=== PATIENT | male | born 1940 | race Caucasian/White ===

== ENCOUNTER → 2018-07-18 | Outpatient (CLI) | payer MEDICARE, BC ==
--- NOTE | 2018-07-18 12:50 | XR ---
EXAMINATION TYPE: XR thoracic spine complete DATE OF EXAM: 07/18/2018 CLINICAL HISTORY: pain TECHNIQUE: Frontal, lateral, and swimmer's view of thoracic spine are obtained. COMPARISON: None. FINDINGS: Thoracic spine show satisfactory alignment without evidence of acute fracture or dislocatio n. Vertebral body heights are preserved. Moderate to severe multilevel degenerative disc space narro wing and spondylosis. Visualized ribs are unremarkable. IMPRESSION: No acute fracture or dislocation is seen in the thoracic spine. ICD 10 NO FRACTURE, INITIAL EVALUATION
--- NOTE | 2018-07-18 16:06 | XR ---
EXAMINATION TYPE: XR lumbar spine 2 or 3V DATE OF EXAM: 07/18/2018 CLINICAL HISTORY: pain TECHNIQUE: Three views of the lumbar spine are submitted. COMPARISON: None. FINDINGS: There are 5 lumbar type vertebral bodies identified. The lumbar spine shows satisfactory alignment w ithout evidence of acute fracture or dislocation. Vertebral body heights are within normal limits. Moderate degenerative disc space narrowing and spondylosis. Facet joint arthropathy. The overlying s oft tissue appears unremarkable. IMPRESSION: No acute fracture or dislocation is seen in the lumbar spine. ICD 10 NO FRACTURE, INITIAL EVALUATION
== END | disposition home or self-care (01) ==
LOC: RADXRMAIN 12:09
PROVIDERS: ATTEND Family Medicine
DX: M54.5 Low back pain (principal); M54.6 Pain in thoracic spine
CPT/HCPCS: 72072; 72100

== ENCOUNTER 2018-09-25 11:51 | Inpatient (IN) | payer MEDICARE, BC ==
[2018-09-25] MEDS ORDERED: SODIUM CHLORIDE 0.9% 500 ML 500 ML IV STA (12:12)
[2018-09-25] MEDS ORDERED: PANTOPRAZOLE 40 MG/10 ML VIAL IVP STA (12:12)
--- NOTE | 2018-09-25 12:16 | ED ---
General Adult HPI - General Chief complaint: Abdominal Pain Stated complaint: abd pain Time Seen by Provider: 09/25/18 11:55 Source: patient, RN notes reviewed Mode of arrival: ambulatory Limitations: no limitations - History of Present Illness Initial comments: This is a 78-year-old male who is an alcoholic. Patient states he hasn't had a drink since yesterday morning. Patient states he had 3 day episode of diarrhea and then on Sunday he started vomiting for 2 days. Patient states and Saturdays also had some mid abdominal pain. Patient was told to come in by his primary medical care doctor when his caregiver called him. Patient states currently is not having any abdominal pain. Patient currently has got no complaints. Patient denies any chest pain difficulty breathing or shortness of breath per patient denies any recent fever chills or cough. Patient denies being nauseated currently and patient states he hasn't had any diarrhea for at least 3 days. Patient states he has not drank any alcohol today. Patient denies any lightheadedness or dizziness. - Related Data Home Medications Medication Instructions Recorded Confirmed DULoxetine HCL [Cymbalta] 60 mg PO BID 07/16/14 09/25/18 Atorvastatin [Lipitor] 10 mg PO W/SUPPER 05/15/16 09/25/18 Folic Acid 1 mg PO DAILY 05/15/16 09/25/18 Imipramine [Tofranil] 10 mg PO TID 05/15/16 09/25/18 Repaglinide [Prandin] 0.5 mg PO DAILY 05/15/16 09/25/18 Aspirin [Adult Low Dose Aspirin EC] 81 mg PO DAILY 09/25/18 09/25/18 Bismuth Subsalicylate 262 mg PO Q1H PRN 09/25/18 09/25/18 [Pepto-Bismol] Calcium Carbonate [Tums] 500 mg PO DAILY 09/25/18 09/25/18 Cholecalciferol [Vitamin D3] 2,000 unit PO ONCE 09/25/18 09/25/18 Insulin Glargine,Hum.rec.anlog 10 units SQ DAILY 09/25/18 09/25/18 [Tolauryn Rodriguesostpaty] Melatonin 10 mg PO HS 09/25/18 09/25/18 Metoprolol Tartrate 25 mg PO BID 09/25/18 09/25/18 Pantoprazole Sodium 40 mg PO DAILY 09/25/18 09/25/18 Potassium Chloride [Klor-Con 10] 10 meq PO BID 09/25/18 09/25/18 Thiamine [Vitamin B-1] 100 mg PO DAILY 09/25/18 09/25/18 Zolpidem Tartrate [Ambien] 5 - 10 mg PO HS PRN 09/25/18 09/25/18 amLODIPine [Norvasc] 2.5 mg PO BID 09/25/18 09/25/18 buPROPion HCL [Wellbutrin XL] 150 mg PO DAILY 09/25/18 09/25/18 Allergies Allergy/AdvReac Type Severity Reaction Status Date / Time zolpidem tartrate AdvReac Hallucinati Verified 09/25/18 13:10 [From Ambien] ons Review of Systems ROS Statement: Those systems with pertinent positive or pertinent negative responses have been documented in the HPI. ROS Other: All systems not noted in ROS Statement are negative. Past Medical History Past Medical History: Diabetes Mellitus, Hypertension Additional Past Medical History / Comment(s): Prostate cancer. History of Any Multi-Drug Resistant Organisms: None Reported Past Surgical History: Cholecystectomy, Orthopedic Surgery, Prostate Surgery Additional Past Surgical History / Comment(s): knee left, right leg, back. prostate removed. Past Anesthesia/Blood Transfusion Reactions: No Reported Reaction Past Psychological History: No Psychological Hx Reported Smoking Status: Light tobacco smoker Past Alcohol Use History: Daily, None Reported Past Drug Use History: None Reported - Past Family History Father Additional Family Medical History / Comment(s): ulcers Mother History Unknown: Yes Brother(s) Family Medical History: Cancer Additional Family Medical History / Comment(s): patient unsure what type of cancer General Exam - General Exam Comments Initial Comments: GENERAL: Patient is well-developed and well-nourished. Patient is nontoxic and well- hydrated and is in no acute distress. ENT: Neck is soft and supple. No significant lymphadenopathy is noted. Oropharynx is clear. Moist mucous membranes. EYES: The sclera were anicteric and conjunctiva were pink and moist. Extraocular movements were intact and pupils were equal round and reactive to light. Eyelids were unremarkable. PULMONARY: Unlabored respirations. Good breath sounds bilaterally. No audible rales rhonchi or wheezing was noted. CARDIOVASCULAR: There is a regular rate and rhythm without any murmurs gallops or rubs. ABDOMEN: Soft and nontender with normal bowel sounds. No palpable organomegaly was noted. There is no palpable pulsatile mass. SKIN: Skin is clear with no lesions or rashes and otherwise unremarkable. NEUROLOGIC: Patient is alert and oriented x3. Cranial nerves II through XII are grossly intact. Motor and sensory are also intact. Normal speech, volume and content. Symmetrical smile. MUSCULOSKELETAL: Normal extremities with adequate strength and full range of motion. No lower extremity swelling or edema. No calf tenderness. LYMPHATICS: No significant lymphadenopathy is noted PSYCHIATRIC: Normal psychiatric evaluation. Limitations: no limitations Course Vital Signs 09/25/18 09/25/18 09/25/18 11:56 12:09 12:10 Temperature 97.6 F Pulse Rate 54 L Respiratory 20 Rate Blood Pressure 98/56 121/84 121/84 O2 Sat by Pulse 93 L 96 95 Oximetry 09/25/18 09/25/18 09/25/18 12:20 12:30 12:40 Temperature Pulse Rate 80 96 Respiratory 20 20 Rate Blood Pressure 121/84 121/84 114/82 O2 Sat by Pulse 96 94 L Oximetry 09/25/18 09/25/18 09/25/18 12:50 13:00 13:10 Temperature Pulse Rate 76 Respiratory 7 L Rate Blood Pressure 114/82 114/82 127/80 O2 Sat by Pulse 92 L 93 L Oximetry Medical Decision Making - Medical Decision Making EKG shows normal sinus rhythm at 81 bpm MA interval 164 QRS is 82 QT interval 382 QTC is 443. Patient's EKG shows some T-wave inversions in leads II, III, and F aVF. These T-wave inversions are seen on a previous EKG. KUB shows no acute abnormality. Computed tomography scan of the abdomen and pelvis shows debris in the stomach and some constipation. No acute findings to explain the patient's pain. I spoke with Dr. Garcia and he agreed to admit the patient admitted the patient wrote admitting orders - Lab Data Result diagrams: 09/25/18 12:31 09/25/18 12:31 Lab Results 09/25/18 09/25/18 09/25/18 Range/Units 12:31 12:31 12:31 WBC 16.3 H (3.8-10.6) k/uL RBC 3.87 L (4.30-5.90) m/uL Hgb 13.7 (13.0-17.5) gm/dL Hct 38.3 L (39.0-53.0) % MCV 99.2 (80.0-100.0) fL MCH 35.3 H (25.0-35.0) pg MCHC 35.6 (31.0-37.0) g/dL RDW 12.4 (11.5-15.5) % Plt Count 280 (150-450) k/uL Neutrophils % 82 % Lymphocytes % 10 % Monocytes % 7 % Eosinophils % 0 % Basophils % 0 % Neutrophils # 13.3 H (1.3-7.7) k/uL Lymphocytes # 1.6 (1.0-4.8) k/uL Monocytes # 1.1 H (0-1.0) k/uL Eosinophils # 0.0 (0-0.7) k/uL Basophils # 0.0 (0-0.2) k/uL PT (9.0-12.0) sec INR (<1.2) APTT (22.0-30.0) sec Sodium 133 L (137-145) mmol/L Potassium 4.0 (3.5-5.1) mmol/L Chloride 95 L (98-107) mmol/L Carbon Dioxide 25 (22-30) mmol/L Anion Gap 13 mmol/L BUN 43 H (9-20) mg/dL Creatinine 1.67 H (0.66-1.25) mg/dL Est GFR (CKD-EPI)AfAm 45 (>60 ml/min/1.73 sqM) Est GFR (CKD-EPI)NonAf 39 (>60 ml/min/1.73 sqM) Glucose 187 H (74-99) mg/dL Plasma Lactic Acid Gene 2.7 H* (0.7-2.0) mmol/L Calcium 12.1 H (8.4-10.2) mg/dL Total Bilirubin 0.7 (0.2-1.3) mg/dL AST 22 (17-59) U/L ALT 27 (21-72) U/L Alkaline Phosphatase 57 (38-126) U/L Total Protein 6.6 (6.3-8.2) g/dL Albumin 3.8 (3.5-5.0) g/dL Amylase <30 L (30-110) U/L Lipase 66 (23-300) U/L Urine Color Urine Appearance (Clear) Urine pH (5.0-8.0) Ur Specific [place] (1.001-1.035) Urine Protein (Negative) Urine Glucose (UA) (Negative) Urine Ketones (Negative) Urine Blood (Negative) Urine Nitrite (Negative) Urine Bilirubin (Negative) Urine Urobilinogen (<2.0) mg/dL Ur Leukocyte Esterase (Negative) Serum Alcohol <10 mg/dL 09/25/18 09/25/18 Range/Units 12:31 13:05 WBC (3.8-10.6) k/uL RBC (4.30-5.90) m/uL Hgb (13.0-17.5) gm/dL Hct (39.0-53.0) % MCV (80.0-100.0) fL MCH (25.0-35.0) pg MCHC (31.0-37.0) g/dL RDW (11.5-15.5) % Plt Count (150-450) k/uL Neutrophils % % Lymphocytes % % Monocytes % % Eosinophils % % Basophils % % Neutrophils # (1.3-7.7) k/uL Lymphocytes # (1.0-4.8) k/uL Monocytes # (0-1.0) k/uL Eosinophils # (0-0.7) k/uL Basophils # (0-0.2) k/uL PT 10.0 (9.0-12.0) sec INR 1.0 (<1.2) APTT 21.7 L (22.0-30.0) sec Sodium (137-145) mmol/L Potassium (3.5-5.1) mmol/L Chloride (98-107) mmol/L Carbon Dioxide (22-30) mmol/L Anion Gap mmol/L BUN (9-20) mg/dL Creatinine (0.66-1.25) mg/dL Est GFR (CKD-EPI)AfAm (>60 ml/min/1.73 sqM) Est GFR (CKD-EPI)NonAf (>60 ml/min/1.73 sqM) Glucose (74-99) mg/dL Plasma Lactic Acid Gene (0.7-2.0) mmol/L Calcium (8.4-10.2) mg/dL Total Bilirubin (0.2-1.3) mg/dL AST (17-59) U/L ALT (21-72) U/L Alkaline Phosphatase (38-126) U/L Total Protein (6.3-8.2) g/dL Albumin (3.5-5.0) g/dL Amylase (30-110) U/L Lipase (23-300) U/L Urine Color Yellow Urine Appearance Clear (Clear) Urine pH 6.0 (5.0-8.0) Ur Specific [place] 1.016 (1.001-1.035) Urine Protein Negative (Negative) Urine Glucose (UA) Trace H (Negative) Urine Ketones Trace H (Negative) Urine Blood Negative (Negative) Urine Nitrite Negative (Negative) Urine Bilirubin Negative (Negative) Urine Urobilinogen <2.0 (<2.0) mg/dL Ur Leukocyte Esterase Negative (Negative) Serum Alcohol mg/dL Disposition Clinical Impression: Abdominal pain, Alcohol abuse Disposition: ADMITTED IP TO THIS [facility] Referrals: Chemo Garcia DO [Primary Care Provider] - 1-2 days Time of Disposition: 15:12
[2018-09-25 12:55] LABS: Basophils % (A) 0 %; Eosinophils % (A) 0 %; HCT 38.3 % (39.0-53.0); HGB 13.7 gm/dL (13.0-17.5); Lymphocytes # (A) 1.6 k/uL (1.0-4.8); Lymphocytes % (A) 10 %; MCH 35.3 pg (25.0-35.0); MCHC 35.6 g/dL (31.0-37.0); MCV 99.2 fL (80.0-100.0); Mean Platelet Volume 6.6; Monocytes # (A) 1.1 k/uL (0-1.0); Monocytes % (A) 7 %; Neutrophils # (A) 13.3 k/uL (1.3-7.7); Neutrophils % (A) 82 %; Platelet Count 280 k/uL (150-450); RBC 3.87 m/uL (4.30-5.90); RDW 12.4 % (11.5-15.5); WBC 16.3 k/uL (3.8-10.6)
[2018-09-25 13:06] LABS: ALT 27 U/L (21-72); AST 22 U/L (17-59); Albumin 3.8 g/dL (3.5-5.0); Alcohol <10 mg/dL; Alkaline Phosphatase 57 U/L (38-126); Amylase <30 U/L (30-110); Anion Gap 13 mmol/L; Blood Urea Nitrogen 43 mg/dL (9-20); Calcium 12.1 mg/dL (8.4-10.2); Carbon Dioxide 25 mmol/L (22-30); Chloride 95 mmol/L (98-107); Glucose 187 mg/dL (74-99); Lipase 66 U/L (23-300); Sodium 133 mmol/L (137-145); Total Bilirubin 0.7 mg/dL (0.2-1.3); Total Protein 6.6 g/dL (6.3-8.2)
[2018-09-25 13:18] LABS: Appearance,Urine Clear (Clear); Bilirubin,Urine Negative (Negative); Blood,Urine Negative (Negative); Color,Urine Yellow; Glucose,Urine (UA) Trace (Negative); Ketones,Urine Trace (Negative); Leukocyte Esterase,Urine Negative (Negative); Nitrite,Urine Negative (Negative); Protein,Urine Negative (Negative); Specific Gravity,Urine 1.016 (1.001-1.035); Urobilinogen,Urine <2.0 mg/dL (<2.0)
--- NOTE | 2018-09-25 13:21 | XR ---
EXAMINATION TYPE: XR KUB DATE OF EXAM: 09/25/2018 COMPARISON: 07/15/2014 HISTORY: Pain TECHNIQUE: Single supine KUB image of the abdomen is obtained FINDINGS: Small bowel demonstrates no evidence for dilatation or air fluid levels. Gas and fecal material is seen in non-distended colon. Mild to moderate fecal stasis. Prostatectomy changes. No convincing evidence for pneumoperitoneum. No unusual calcifications. The lung bases are clear. The osseous structures are intact. IMPRESSION: 1. Overall nonobstructive bowel gas pattern.
[2018-09-25 13:25] LABS: Partial Thromboplastin Time 21.7 sec (22.0-30.0)
[2018-09-25] MEDS ORDERED: SODIUM CHLORIDE 0.9% 1,000 ML IV ONE ×2 (14:26→15:13)
--- NOTE | 2018-09-25 14:52 | CT ---
EXAMINATION TYPE: CT abdomen pelvis wo con DATE OF EXAM: 09/25/2018 COMPARISON: 07/02/2015 HISTORY: 78-year-old male with pain, Nausea, vomiting, diarrhea CT DLP: 579 mGycm. Automated exposure control for dose reduction was used. TECHNIQUE: Contiguous axial scanning of the abdomen and pelvis without IV contrast. Coronal and sagit stuart reconstructions performed. FINDINGS: Enlarged right main pulmonary artery at 2.8 cm suggest underlying pulmonary hypertension. Calcified m ediastinal lymph nodes and right hilar lymph nodes compatible with prior granulomatous disease. Calci fied granulomas on the right. Strandy atelectasis and scarring in the visualized lungs. Ectatic ascen ding aorta 3.8 cm. Extensive coronary vessel calcifications. Heart borderline enlarged. Noncontrast appearance of the liver, adrenal glands, left kidney, and pancreas shows no gross abnorma lity. Multiple calcified granulomas in the spleen. A 1.1 cm hypodense cortical lesion lower pole right kidney suggestive of a cyst, slightly larger from 2015. There is focal rounded contour along the anterior upper pole of the right kidney that could represent a prominent contour lobulation. This appears slightly different from 2015. Short interval follow-up recommended. Refer to axial image 34. Retroaortic left renal vein. Prominent ingested debris distending the stomach. No dilated small bowel, free fluid, or free air. No mesenteric or retroperitoneal lymphadenopathy. Some retained oral contrast material is seen throughout the colon. Normal appendix. The far lateral l eft flank is excluded from view including portions of the descending colon. Seov-ga-pyckebac stool in the distal sigmoid and rectum. Myles catheter is present decompressing the bladder. Nondependent intraluminal bladder air likely sec ondary to instrumentation. Surgical clips in the region of the prostate gland and multiple surgical c lips along the iliac chains suggesting prior lymph node dissection with prostatectomy. No abnormal fl uid collection or lymphadenopathy in the pelvis. Bones: Degenerative changes of the hips and scattered degenerative disc disease. Inferior endplate de formity of T11 is new from 2015 but still suspect chronic given the lack of any surrounding soft tiss ue swelling. IMPRESSION: 1. Prominent ingested debris distending the stomach. 2. Mild to moderate stool within the distal sigmoid and rectum. Retained oral contrast material seen throughout the colon. Query any recent radiologic exam where oral contrast was administered. 3. Status post prostatectomy and pelvic lymph node dissection. 4. Myles catheter in place. 5. Inferior endplate deformity of T11 is new from 2015 but still suspect chronic given the lack of a ny surrounding soft tissue swelling. 6. Focal rounded contour along the upper pole of the right kidney. Limited assessment without contra st. Recommend three-month follow-up CT with contrast to exclude an underlying mass.
[2018-09-25 17:41] LABS: Glucose,Whole Blood 112 mg/dL (75-99)
[2018-09-25] MEDS ORDERED: BISMUTH SUBSALICYLATE 4,192 MG/240 ML BOTTLE PO PRN (18:36)
[2018-09-25] MEDS ORDERED: THIAMINE 100 MG/ML 2 ML VIAL IM STA (18:39)
[2018-09-25] MEDS: LORazepam 2 MG/ML INJ IV PRN ×2 (19:32→21:26)
[2018-09-25] MEDS: ACETAMINOPHEN TAB 325 MG TAB PO PRN (19:32)
[2018-09-25] MEDS: NICOTINE 21MG/24HR PATCH TRANSDERM SCH (19:32)
[2018-09-25] MEDS: amLODIPine 2.5 MG TAB PO SCH (19:57)
[2018-09-25 23:53] LABS: Glucose,Whole Blood 70 mg/dL (75-99)
[2018-09-26] MEDS: LORazepam 2 MG/ML INJ IV PRN ×6 (00:06→23:04)
[2018-09-26] MEDS: INSULIN ASPART 100 UNIT/ML 1 ML 10 ML VIAL SQ SCH ×5 (00:45→20:51)
[2018-09-26 04:38] LABS: Hemoglobin A1C 5.4 % (4.0-6.0)
[2018-09-26 06:38] LABS: Glucose,Whole Blood 85 mg/dL (75-99)
[2018-09-26] MEDS ORDERED: IPRATROPIUM-ALBUTEROL 3 ML NEB INHALATION STA (08:01)
[2018-09-26] MEDS ORDERED: methylPREDNISolone SOD SUCCI 125 MG/2 ML VIAL IV STA (08:02)
[2018-09-26] MEDS ORDERED: PANTOPRAZOLE 40 MG TABLET PO SCH (09:00)
--- NOTE | 2018-09-26 09:15 | XR ---
EXAMINATION TYPE: XR chest 2V DATE OF EXAM: 09/26/2018 COMPARISON: 05/15/2016 HISTORY: Shortness of breath TECHNIQUE: Frontal and lateral views of the chest are obtained. FINDINGS: There is a trace left pleural effusion in the retrocardiac airspace. Right midlung trace p latelike atelectasis is seen. Remainder the lungs are clear. Cardia mediastinal silhouette is mildly enlarged. Right hemidiaphragm elevation is unchanged from the prior. Diffuse osseous demineralization . Cholecystectomy clips are seen. IMPRESSION: Trace left pleural effusion and right midlung linear platelike atelectasis.
[2018-09-26 09:58] LABS: Basophils % (A) 0 %; Eosinophils # (A) 0.1 k/uL (0-0.7); Eosinophils % (A) 1 %; HCT 31.8 % (39.0-53.0); Lymphocytes # (A) 1.2 k/uL (1.0-4.8); Lymphocytes % (A) 13 %; MCH 34.5 pg (25.0-35.0); MCHC 34.6 g/dL (31.0-37.0); MCV 99.6 fL (80.0-100.0); Mean Platelet Volume 6.5; Monocytes # (A) 0.7 k/uL (0-1.0); Monocytes % (A) 8 %; Neutrophils # (A) 7.4 k/uL (1.3-7.7); Neutrophils % (A) 76 %; Platelet Count 221 k/uL (150-450); RBC 3.19 m/uL (4.30-5.90); RDW 12.3 % (11.5-15.5); WBC 9.7 k/uL (3.8-10.6)
[2018-09-26 10:05] LABS: Potassium 3.4 mmol/L (3.5-5.1); Total Bilirubin 0.6 mg/dL (0.2-1.3); Total Protein 5.4 g/dL (6.3-8.2)
--- NOTE | 2018-09-26 11:05 | P.HPIM ---
History of Present Illness H&P Date: 09/26/18 Chief Complaint: abdominal pain 78-year-old male with a past medical history significant for dementia , diabetes, hypertension, and alcohol abuse, who presented to the emergency room with a chief complaint of abdominal pain. The patient is a very poor historian and most of the HPI was obtained from electronic medical record. Apparently the patient was having a 3 day episode of diarrhea and also vomiting 2 days. He was complaining of abdominal pain. He presented to the emergency room for further evaluation. KUB x-ray completed in the emergency room reveals overall nonobstructive bowel gas pattern. CT of abdomen and pelvis revealed prominent ingested debris distending stomach. Mild to moderate stool within the distal sigmoid colon and rectum. Laboratory data upon admission reveals white count 16.3. Hemoglobin 13.7. Platelet count 280. Sodium 133. Nexium 4.0. BUN 43. Creatinine 1.67. Glucose 187. Hemoglobin A1c 5.4 AST 22. ALT 27. Amylase less than 30. Lipase 66. Lactic acid 2.7. Repeat 1.1. Serum alcohol less than 10. Urinalysis revealed trace glucose and ketones. The patient was admitted to the hospital under the care of Dr. Garcia. Consultations were placed to Dr. Browne. The patient was seen and examined this morning at the bedside with Dr. Garcia. The patient remains very confused. Unable to recognize Dr. Garcia. Patient denies abdominal pain at this time. Denies nausea or vomiting. Reports some mild shortness of breath. Denies cough or congestion. REVIEW OF SYSTEMS: Those systems with pertinent positive or pertinent negative responses have been documented in the HPI PHYSICAL EXAM: GENERAL: This is a 78-year-old male in no apparent distress at the time of examination. Pleasant and cooperative. HEENT: Head is atraumatic, normocephalic. Pupils are equal, round, and reactive to light. Sclerae anicteric. Conjunctivae are clear. Mucus membranes of the mouth are moist. Neck is supple. RESPIRATORY: Expiratory wheezing noted throughout lung whyte. No use of accessory muscles. Patient maintaining oxygen saturation greater than 92%. CARDIOVASCULAR: Regular rate and rhythm. S1 and S2 noted. No JVD noted. No S3 or S4 noted. GASTROINTESTINAL: No distention noted. Abdomen soft and round. Normal active bowel sounds auscultated x 4 quadrants. No pain or tenderness noted upon palpation. INTEGUMENTARY: No cyanosis. No jaundice. No rashes noted. No cellulitis noted. EXTREMITIES: 2+ peripheral pulses. No evidence of peripheral edema. No calf tenderness noted. NEUROLOGIC: Cranial nerves II-XII intact. PSYCHIATRIC: A/O to self only ASSESSMENT: Abdominal pain, etiology unclear, resolved Alcohol abuse Alcohol withdrawal, last drink Sunday Encephalopathy, may be due to DTs History of dementia Likely diagnosis of COPD due to patients smoking history with acute exacerbation Acute kidney injury, creatinine 1.67 on admission, secondary to hypovolemia due to diarrhea and decreased oral intake Nicotine depedence Hypertension Diabetes mellitus, type II History of prostate cancer PLAN: Dr. Browne on consult. Await further recommendations and input Continue [facility] protocol Change to inpatient status and transfer to medical floor Family is concerned regarding stroke and states these DTs are different than his previous ones because of his speech. Explained DTs to family. Stroke unlikely, but will order noncontrast CT brain Duoneb treatments QID and PRN Solumedral 125mg x 1 dose, then 60mg q8 hours Nicotine patch Home meds as appropriate Monitor labs GI prophylaxis: Protonix 40 mg PO Daily DVT prophylaxis: ARCHIE hose to bilateral LE Monitor vital signs and address as appropriate Discharge planning: Patient to return home when stable. Patient has a caregiver. Will consult social work due to alcohol abuse Further recommendations pending patient's course DaughterBrenda is DPOA, and requesting DNR status Nurse practitioner note has been reviewed by physician. Signing provider agrees with the documented findings, assessment, and plan of care. Past Medical History Past Medical History: Cancer, Dementia, Diabetes Mellitus, GERD/Reflux, Hypertension, Memory Impairment, Pneumonia, Prostate Disorder Additional Past Medical History / Comment(s): Prostate cancer. 2015 bleeding ulcer. migraines, uses walker when up. 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 History of Any Multi-Drug Resistant Organisms: None Reported Past Surgical History: Cholecystectomy, Orthopedic Surgery, Prostate Surgery Additional Past Surgical History / Comment(s): knee left, right leg, back. prostate removed.lt elbow Past Anesthesia/Blood Transfusion Reactions: No Reported Reaction Smoking Status: Current every day smoker - Past Family History Father Additional Family Medical History / Comment(s): ulcers Mother History Unknown: Yes Additional Family Medical History / Comment(s): migraines Brother(s) Family Medical History: Cancer Additional Family Medical History / Comment(s): patient unsure what type of cancer Medications and Allergies Home Medications Medication Instructions Recorded Confirmed Type DULoxetine HCL [Cymbalta] 60 mg PO BID 07/16/14 09/25/18 History Atorvastatin [Lipitor] 10 mg PO W/SUPPER 05/15/16 09/25/18 History Folic Acid 1 mg PO DAILY 05/15/16 09/25/18 History Imipramine [Tofranil] 10 mg PO TID 05/15/16 09/25/18 History Repaglinide [Prandin] 0.5 mg PO DAILY 05/15/16 09/25/18 History Aspirin [Adult Low Dose Aspirin EC] 81 mg PO DAILY 09/25/18 09/25/18 History Bismuth Subsalicylate 262 mg PO Q1H PRN 09/25/18 09/25/18 History [Pepto-Bismol] Calcium Carbonate [Tums] 500 mg PO DAILY 09/25/18 09/25/18 History Cholecalciferol [Vitamin D3] 2,000 unit PO ONCE 09/25/18 09/25/18 History Insulin Glargine,Hum.rec.anlog 10 units SQ DAILY 09/25/18 09/25/18 History [Toujeo Solostar] Melatonin 10 mg PO HS 09/25/18 09/25/18 History Metoprolol Tartrate 25 mg PO BID 09/25/18 09/25/18 History Pantoprazole Sodium 40 mg PO DAILY 09/25/18 09/25/18 History Potassium Chloride [Klor-Con 10] 10 meq PO BID 09/25/18 09/25/18 History Thiamine [Vitamin B-1] 100 mg PO DAILY 09/25/18 09/25/18 History Zolpidem Tartrate [Ambien] 5 - 10 mg PO HS PRN 09/25/18 09/25/18 History amLODIPine [Norvasc] 2.5 mg PO BID 09/25/18 09/25/18 History buPROPion HCL [Wellbutrin XL] 150 mg PO DAILY 09/25/18 09/25/18 History Allergies Allergy/AdvReac Type Severity Reaction Status Date / Time zolpidem tartrate AdvReac Hallucinati Verified 09/25/18 13:10 [From Ambien] ons Physical Exam Vitals: Vital Signs Temp Pulse Pulse Resp BP BP BP 09/26/18 07:00 97.5 F L 80 18 135/83 09/26/18 03:02 16 09/26/18 00:00 98.3 F 76 16 120/80 09/25/18 20:00 18 09/25/18 17:43 97.8 F 65 18 160/79 09/25/18 17:00 121/82 09/25/18 16:50 66 18 121/82 09/25/18 16:40 67 20 121/82 09/25/18 16:30 67 20 133/80 09/25/18 16:20 68 19 133/80 09/25/18 16:10 70 20 133/80 09/25/18 16:00 71 15 136/86 09/25/18 15:50 69 20 136/86 09/25/18 15:40 67 18 136/86 09/25/18 15:30 17 133/80 09/25/18 15:20 71 20 133/80 09/25/18 15:10 70 19 133/80 09/25/18 15:00 71 33 H 09/25/18 14:50 70 20 09/25/18 14:40 72 15 09/25/18 14:30 69 22 135/91 09/25/18 14:20 70 12 135/91 09/25/18 14:10 16 135/91 09/25/18 14:00 73 20 139/81 09/25/18 13:50 139/81 09/25/18 13:40 75 15 139/81 09/25/18 13:30 69 20 127/80 09/25/18 13:20 71 19 127/80 09/25/18 13:10 127/80 09/25/18 13:00 76 7 L 114/82 09/25/18 12:50 114/82 09/25/18 12:40 96 20 114/82 09/25/18 12:30 80 20 121/84 09/25/18 12:20 121/84 09/25/18 12:10 121/84 09/25/18 12:09 121/84 09/25/18 11:56 97.6 F 54 L 20 98/56 Pulse Ox 09/26/18 07:00 96 09/26/18 03:02 09/26/18 00:00 95 09/25/18 20:00 09/25/18 17:43 98 09/25/18 17:00 93 L 09/25/18 16:50 09/25/18 16:40 09/25/18 16:30 09/25/18 16:20 97 09/25/18 16:10 09/25/18 16:00 96 09/25/18 15:50 97 09/25/18 15:40 99 09/25/18 15:30 09/25/18 15:20 96 09/25/18 15:10 96 09/25/18 15:00 99 09/25/18 14:50 96 09/25/18 14:40 96 09/25/18 14:30 96 09/25/18 14:20 82 L 09/25/18 14:10 89 L 09/25/18 14:00 88 L 09/25/18 13:50 09/25/18 13:40 09/25/18 13:30 95 09/25/18 13:20 89 L 09/25/18 13:10 09/25/18 13:00 93 L 09/25/18 12:50 92 L 09/25/18 12:40 09/25/18 12:30 94 L 09/25/18 12:20 96 09/25/18 12:10 95 09/25/18 12:09 96 09/25/18 11:56 93 L Intake and Output 09/25/18 09/26/18 09/26/18 22:59 06:59 14:59 Intake Total 200 Output Total 800 Balance 200 -800 Intake: Oral 200 Output: Urine 800 Other: Voiding Method Indwelling Catheter Indwelling Catheter Results CBC & Chem 7: 09/26/18 09:30 09/26/18 09:30 Labs: Abnormal Lab Results - Last 24 Hours (Table) 09/25/18 09/25/18 09/25/18 Range/Units 12:31 12:31 12:31 WBC 16.3 H (3.8-10.6) k/uL RBC 3.87 L (4.30-5.90) m/uL Hct 38.3 L (39.0-53.0) % MCH 35.3 H (25.0-35.0) pg Neutrophils # 13.3 H (1.3-7.7) k/uL Monocytes # 1.1 H (0-1.0) k/uL APTT (22.0-30.0) sec Sodium 133 L (137-145) mmol/L Chloride 95 L (98-107) mmol/L BUN 43 H (9-20) mg/dL Creatinine 1.67 H (0.66-1.25) mg/dL Glucose 187 H (74-99) mg/dL POC Glucose (mg/dL) (75-99) mg/dL Plasma Lactic Acid Gene 2.7 H* (0.7-2.0) mmol/L Calcium 12.1 H (8.4-10.2) mg/dL Amylase <30 L (30-110) U/L Urine Glucose (UA) (Negative) Urine Ketones (Negative) 09/25/18 09/25/18 09/25/18 Range/Units 12:31 13:05 17:39 WBC (3.8-10.6) k/uL RBC (4.30-5.90) m/uL Hct (39.0-53.0) % MCH (25.0-35.0) pg Neutrophils # (1.3-7.7) k/uL Monocytes # (0-1.0) k/uL APTT 21.7 L (22.0-30.0) sec Sodium (137-145) mmol/L Chloride (98-107) mmol/L BUN (9-20) mg/dL Creatinine (0.66-1.25) mg/dL Glucose (74-99) mg/dL POC Glucose (mg/dL) 112 H (75-99) mg/dL Plasma Lactic Acid Gene (0.7-2.0) mmol/L Calcium (8.4-10.2) mg/dL Amylase (30-110) U/L Urine Glucose (UA) Trace H (Negative) Urine Ketones Trace H (Negative) 09/25/18 Range/Units 23:41 WBC (3.8-10.6) k/uL RBC (4.30-5.90) m/uL Hct (39.0-53.0) % MCH (25.0-35.0) pg Neutrophils # (1.3-7.7) k/uL Monocytes # (0-1.0) k/uL APTT (22.0-30.0) sec Sodium (137-145) mmol/L Chloride (98-107) mmol/L BUN (9-20) mg/dL Creatinine (0.66-1.25) mg/dL Glucose (74-99) mg/dL POC Glucose (mg/dL) 70 L (75-99) mg/dL Plasma Lactic Acid Gene (0.7-2.0) mmol/L Calcium (8.4-10.2) mg/dL Amylase (30-110) U/L Urine Glucose (UA) (Negative) Urine Ketones (Negative) Thrombosis Risk Factor Assmnt - Choose All That Apply Any of the Below Risk Factors Present?: No Other Risk Factors: Yes Each Risk Factor Represents 3 Points: Age 75 years or older Thrombosis Risk Factor Assessment Total Risk Factor Score: 3 Thrombosis Risk Factor Assessment Level: Moderate Risk
[2018-09-26] MEDS: IPRATROPIUM-ALBUTEROL 3 ML NEB INHALATION SCH ×3 (11:07→21:23)
[2018-09-26] MEDS ORDERED: LORazepam 2 MG/ML INJ IV STA (11:15)
[2018-09-26 12:01] LABS: Glucose,Whole Blood 129 mg/dL (75-99)
[2018-09-26] MEDS: buPROPion XL 150 MG TAB.ER.24H PO SCH (13:04)
[2018-09-26] MEDS: amLODIPine 2.5 MG TAB PO SCH ×2 (13:04→20:51)
[2018-09-26] MEDS: THIAMINE 100 MG TAB PO SCH ×3 (13:05→16:21)
[2018-09-26] MEDS: FOLIC ACID 1 MG TAB PO SCH (13:05)
[2018-09-26] MEDS: POTASSIUM CHLORIDE ER 10 MEQ TAB.ER.PRT PO SCH ×2 (13:05→20:51)
[2018-09-26] MEDS: METOPROLOL TARTRATE 25 MG TAB PO SCH ×2 (13:05→20:51)
[2018-09-26] MEDS: IMIPRAMINE 10 MG TAB PO SCH ×3 (13:05→20:52)
[2018-09-26] MEDS: MULTIVITAMINS, THERA 1 EACH TAB PO SCH (13:05)
[2018-09-26] MEDS: CALCIUM CARBONATE 500 MG CHEWABLE PO SCH (13:05)
[2018-09-26] MEDS: DULoxetine HCL 60 MG CAPSULE.DR PO SCH ×2 (13:05→20:51)
--- NOTE | 2018-09-26 13:29 | CT ---
EXAMINATION TYPE: CT brain wo con DATE OF EXAM: 09/26/2018 COMPARISON: 05/15/2016 HISTORY: confusion CT DLP: 1276.4 mGycm Automated exposure control for dose reduction was used. TECHNIQUE: CT scan of the head is performed without contrast. FINDINGS: Posterior fossa is limited in evaluation. There is no acute intracranial hemorrhage or midline shift identified. There is diffuse ventricular a nd sulcal prominence likely relating to diffuse age-related cerebral atrophy although again normal pr essure hydrocephalus should be considered. There is low-attenuation in the periventricular white matter consistent with chronic small vessel isc hemic change. This is similar in degree to the prior 2016 predominating within the left frontal lobe. The globes are intact and the visualized sinuses are clear. IMPRESSION: 1. No acute intracranial process. 2. Similar diffuse age-related cerebral atrophy and chronic small vessel ischemic change in compariso n to the exam of 2016.
[2018-09-26] MEDS: PANTOPRAZOLE 40 MG/10 ML VIAL IVP SCH (15:47)
[2018-09-26] MEDS: ATORVASTATIN 10 MG TAB PO SCH (16:27)
--- NOTE | 2018-09-26 16:58 | P.GSCN ---
History of Present Illness Consult date: 09/26/18 Reason for Consult: nausea, vomiting History of present illness: this is a 78-year-old male who has a history of severe alcoholism. The patient' s family states he drinks a pint of whiskey per day. He has had issues with chronic nausea vomiting the patient was unable to drink alcohol. He subsequently developed DTs. The patient is currently obtunded in his bed. Past Medical History Past Medical History: Cancer, Dementia, Diabetes Mellitus, GERD/Reflux, Hypertension, Memory Impairment, Pneumonia, Prostate Disorder Additional Past Medical History / Comment(s): Prostate cancer. 2015 bleeding ulcer. migraines, uses walker when up. 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 History of Any Multi-Drug Resistant Organisms: None Reported Past Surgical History: Cholecystectomy, Orthopedic Surgery, Prostate Surgery Additional Past Surgical History / Comment(s): knee left, right leg, back. prostate removed.lt elbow Past Anesthesia/Blood Transfusion Reactions: No Reported Reaction Smoking Status: Current every day smoker - Past Family History Father Additional Family Medical History / Comment(s): ulcers Mother History Unknown: Yes Additional Family Medical History / Comment(s): migraines Brother(s) Family Medical History: Cancer Additional Family Medical History / Comment(s): patient unsure what type of cancer Medications and Allergies Home Medications Medication Instructions Recorded Confirmed Type DULoxetine HCL [Cymbalta] 60 mg PO BID 07/16/14 09/25/18 History Atorvastatin [Lipitor] 10 mg PO W/SUPPER 05/15/16 09/25/18 History Folic Acid 1 mg PO DAILY 05/15/16 09/25/18 History Imipramine [Tofranil] 10 mg PO TID 05/15/16 09/25/18 History Repaglinide [Prandin] 0.5 mg PO DAILY 05/15/16 09/25/18 History Aspirin [Adult Low Dose Aspirin EC] 81 mg PO DAILY 09/25/18 09/25/18 History Bismuth Subsalicylate 262 mg PO Q1H PRN 09/25/18 09/25/18 History [Pepto-Bismol] Calcium Carbonate [Tums] 500 mg PO DAILY 09/25/18 09/25/18 History Cholecalciferol [Vitamin D3] 2,000 unit PO ONCE 09/25/18 09/25/18 History Insulin Glargine,Hum.rec.anlog 10 units SQ DAILY 09/25/18 09/25/18 History [Toujeanetteo Solostar] Melatonin 10 mg PO HS 09/25/18 09/25/18 History Metoprolol Tartrate 25 mg PO BID 09/25/18 09/25/18 History Pantoprazole Sodium 40 mg PO DAILY 09/25/18 09/25/18 History Potassium Chloride [Klor-Con 10] 10 meq PO BID 09/25/18 09/25/18 History Thiamine [Vitamin B-1] 100 mg PO DAILY 09/25/18 09/25/18 History Zolpidem Tartrate [Ambien] 5 - 10 mg PO HS PRN 09/25/18 09/25/18 History amLODIPine [Norvasc] 2.5 mg PO BID 09/25/18 09/25/18 History buPROPion HCL [Wellbutrin XL] 150 mg PO DAILY 09/25/18 09/25/18 History Allergies Allergy/AdvReac Type Severity Reaction Status Date / Time zolpidem tartrate AdvReac Hallucinati Verified 09/25/18 13:10 [From Ambien] ons Surgical - Exam Vital Signs Temp Pulse Resp BP Pulse Ox 97.6 F 54 L 20 98/56 93 L 09/25/18 11:56 09/25/18 11:56 09/25/18 11:56 09/25/18 11:56 09/25/18 11:56 - General patient is obtunded well developed - Eyes PERRL - ENT normal pinna - Neck no masses - Respiratory normal expansion - Cardiovascular Rhythm: regular - Abdomen Abdomen: soft, non tender, distended Results - Labs 09/26/18 09:30 09/26/18 09:30 Abnormal Lab Results - Last 24 Hours (Table) 09/25/18 09/25/18 09/26/18 Range/Units 17:39 23:41 09:30 RBC 3.19 L (4.30-5.90) m/uL Hgb 11.0 L (13.0-17.5) gm/dL Hct 31.8 L (39.0-53.0) % Potassium (3.5-5.1) mmol/L BUN (9-20) mg/dL POC Glucose (mg/dL) 112 H 70 L (75-99) mg/dL Total Protein (6.3-8.2) g/dL Albumin (3.5-5.0) g/dL 09/26/18 09/26/18 Range/Units 09:30 11:56 RBC (4.30-5.90) m/uL Hgb (13.0-17.5) gm/dL Hct (39.0-53.0) % Potassium 3.4 L (3.5-5.1) mmol/L BUN 32 H (9-20) mg/dL POC Glucose (mg/dL) 129 H (75-99) mg/dL Total Protein 5.4 L (6.3-8.2) g/dL Albumin 3.0 L (3.5-5.0) g/dL Diabetes panel 09/25/18 09/26/18 Range/Units 12:31 09:30 Sodium 137 (137-145) mmol/L Potassium 3.4 L (3.5-5.1) mmol/L Chloride 106 (98-107) mmol/L Carbon Dioxide 24 (22-30) mmol/L BUN 32 H (9-20) mg/dL Creatinine 1.20 (0.66-1.25) mg/dL Glucose 92 (74-99) mg/dL Hemoglobin A1c 5.4 (4.0-6.0) % Calcium 9.0 (8.4-10.2) mg/dL AST 28 (17-59) U/L ALT 28 (21-72) U/L Alkaline Phosphatase 42 (38-126) U/L Total Protein 5.4 L (6.3-8.2) g/dL Albumin 3.0 L (3.5-5.0) g/dL Calcium panel 09/26/18 Range/Units 09:30 Calcium 9.0 (8.4-10.2) mg/dL Albumin 3.0 L (3.5-5.0) g/dL Pituitary panel 09/26/18 Range/Units 09:30 Sodium 137 (137-145) mmol/L Potassium 3.4 L (3.5-5.1) mmol/L Chloride 106 (98-107) mmol/L Carbon Dioxide 24 (22-30) mmol/L BUN 32 H (9-20) mg/dL Creatinine 1.20 (0.66-1.25) mg/dL Glucose 92 (74-99) mg/dL Calcium 9.0 (8.4-10.2) mg/dL Adrenal panel 09/26/18 Range/Units 09:30 Sodium 137 (137-145) mmol/L Potassium 3.4 L (3.5-5.1) mmol/L Chloride 106 (98-107) mmol/L Carbon Dioxide 24 (22-30) mmol/L BUN 32 H (9-20) mg/dL Creatinine 1.20 (0.66-1.25) mg/dL Glucose 92 (74-99) mg/dL Calcium 9.0 (8.4-10.2) mg/dL Total Bilirubin 0.6 (0.2-1.3) mg/dL AST 28 (17-59) U/L ALT 28 (21-72) U/L Alkaline Phosphatase 42 (38-126) U/L Total Protein 5.4 L (6.3-8.2) g/dL Albumin 3.0 L (3.5-5.0) g/dL - Imaging CT scan - abdomen: report reviewed (no evidence of bowel obstruction.) Assessment and Plan Assessment: history of nausea vomiting. Once the patient is medically stable we will schedule for EGD.
[2018-09-26 17:12] LABS: Glucose,Whole Blood 176 mg/dL (75-99)
[2018-09-26] MEDS: NICOTINE 21MG/24HR PATCH TRANSDERM SCH (18:22)
[2018-09-26] MEDS: methylPREDNISolone SOD SUCCI 125 MG/2 ML VIAL IV SCH (18:22)
[2018-09-26 20:31] LABS: Glucose,Whole Blood 196 mg/dL (75-99)
[2018-09-27] MEDS: LORazepam 2 MG/ML INJ IV PRN ×5 (02:27→22:43)
[2018-09-27] MEDS: methylPREDNISolone SOD SUCCI 125 MG/2 ML VIAL IV SCH ×2 (02:27→08:38)
[2018-09-27 06:43] LABS: Glucose,Whole Blood 200 mg/dL (75-99)
[2018-09-27] MEDS: IPRATROPIUM-ALBUTEROL 3 ML NEB INHALATION SCH ×4 (07:01→20:43)
[2018-09-27] MEDS: INSULIN ASPART 100 UNIT/ML 1 ML 10 ML VIAL SQ SCH ×4 (08:33→22:42)
[2018-09-27] MEDS: METOPROLOL TARTRATE 25 MG TAB PO SCH ×2 (08:34→20:19)
[2018-09-27] MEDS: PANTOPRAZOLE 40 MG/10 ML VIAL IVP SCH (08:34)
[2018-09-27] MEDS: MULTIVITAMINS, THERA 1 EACH TAB PO SCH (08:34)
[2018-09-27] MEDS: POTASSIUM CHLORIDE ER 10 MEQ TAB.ER.PRT PO SCH ×2 (08:34→20:19)
[2018-09-27] MEDS: DULoxetine HCL 60 MG CAPSULE.DR PO SCH ×2 (08:34→21:12)
[2018-09-27] MEDS: FOLIC ACID 1 MG TAB PO SCH (08:35)
[2018-09-27] MEDS: THIAMINE 100 MG TAB PO SCH ×4 (08:35→17:11)
[2018-09-27] MEDS: amLODIPine 2.5 MG TAB PO SCH ×2 (08:38→21:12)
[2018-09-27] MEDS: buPROPion XL 150 MG TAB.ER.24H PO SCH (08:39)
[2018-09-27] MEDS: IMIPRAMINE 10 MG TAB PO SCH ×3 (08:39→21:12)
--- NOTE | 2018-09-27 11:41 | P.PN ---
Subjective Progress Note Date: 09/27/18 78-year-old male with a past medical history significant for dementia , diabetes, hypertension, and alcohol abuse, who presented to the emergency room with a chief complaint of abdominal pain. The patient is a very poor historian and most of the HPI was obtained from electronic medical record. Apparently the patient was having a 3 day episode of diarrhea and also vomiting 2 days. He was complaining of abdominal pain. He presented to the emergency room for further evaluation. KUB x-ray completed in the emergency room reveals overall nonobstructive bowel gas pattern. CT of abdomen and pelvis revealed prominent ingested debris distending stomach. Mild to moderate stool within the distal sigmoid colon and rectum. Laboratory data upon admission reveals white count 16.3. Hemoglobin 13.7. Platelet count 280. Sodium 133. Nexium 4.0. BUN 43. Creatinine 1.67. Glucose 187. Hemoglobin A1c 5.4 AST 22. ALT 27. Amylase less than 30. Lipase 66. Lactic acid 2.7. Repeat 1.1. Serum alcohol less than 10. Urinalysis revealed trace glucose and ketones. The patient was admitted to the hospital under the care of Dr. Garcia. Consultations were placed to Dr. Browne. The patient was seen and examined this morning at the bedside with Dr. Garcia. The patient remains very confused. Unable to recognize Dr. Garcia. Patient denies abdominal pain at this time. Denies nausea or vomiting. Reports some mild shortness of breath. Denies cough or congestion. 09/27/2018 Patient examined at the bedside. Patient resting comfortably. Speech has improved today. Confusion still present. He remains on [facility] protocol. Awaiting general medical bed. PHYSICAL EXAM: GENERAL: This is a 78-year-old male in no apparent distress at the time of examination. HEENT: Head is atraumatic, normocephalic. Pupils are equal, round, and reactive to light. Sclerae anicteric. Conjunctivae are clear. Mucus membranes of the mouth are moist. Neck is supple. RESPIRATORY: Scattered expiratory wheezing noted throughout lung whyte. No use of accessory muscles. Patient maintaining oxygen saturation greater than 92 %. CARDIOVASCULAR: Regular rate and rhythm. S1 and S2 noted. No JVD noted. No S3 or S4 noted. GASTROINTESTINAL: No distention noted. Abdomen soft and round. Normal active bowel sounds auscultated x 4 quadrants. No pain or tenderness noted upon palpation. INTEGUMENTARY: No cyanosis. No jaundice. No rashes noted. No cellulitis noted. EXTREMITIES: 2+ peripheral pulses. No evidence of peripheral edema. No calf tenderness noted. NEUROLOGIC: Cranial nerves II-XII intact. PSYCHIATRIC: A/O to self only ASSESSMENT: Abdominal pain, etiology unclear, resolved Alcohol abuse Alcohol withdrawal, last drink Sunday Encephalopathy, may be due to DTs History of dementia Likely diagnosis of COPD due to patients smoking history with acute exacerbation Acute kidney injury, creatinine 1.67 on admission, secondary to hypovolemia due to diarrhea and decreased oral intake Nicotine depedence Hypertension Diabetes mellitus, type II History of prostate cancer PLAN: Awaiting bed assignment on general medical floor Dr. Browne on consult. Appreciate recommendations and input Continue [facility] protocol Duoneb treatments QID and PRN Decrease Solumedrol to 40 mg every 8 hours IV. Transition to oral prednisone tomorrow. Nicotine patch Home meds as appropriate Monitor labs GI prophylaxis: Protonix 40 mg IV Daily DVT prophylaxis: ARCHIE hose to bilateral LE Monitor vital signs and address as appropriate Discharge planning: Patient to return home when stable. Patient has a caregiver. Further recommendations pending patient's course DaughterBrenda is DPOA, and requesting DNR status Possible discharge home on Sunday if patient's mentation improves Nurse practitioner note has been reviewed by physician. Signing provider agrees with the documented findings, assessment, and plan of care. Objective - Vital Signs Vital signs: Vital Signs Temp 97.4 F L 09/27/18 08:00 Pulse 80 09/27/18 11:17 Resp 18 09/27/18 08:00 BP 144/79 09/27/18 08:00 Pulse Ox 94 L 09/27/18 08:00 Intake & Output 09/26/18 09/27/18 09/27/18 18:59 06:59 18:59 Weight 79.379 kg Other: Voiding Method Diaper Diaper Diaper Incontinent Incontinent Incontinent # Voids 2 2 - Labs CBC & Chem 7: 09/26/18 09:30 09/26/18 09:30 Labs: Abnormal Lab Results - Last 24 Hours (Table) 09/26/18 09/26/18 09/26/18 Range/Units 11:56 17:10 20:13 POC Glucose (mg/dL) 129 H 176 H 196 H (75-99) mg/dL 09/27/18 Range/Units 06:40 POC Glucose (mg/dL) 200 H (75-99) mg/dL
[2018-09-27] MEDS: CALCIUM CARBONATE 500 MG CHEWABLE PO SCH (11:45)
[2018-09-27 12:03] LABS: Glucose,Whole Blood 183 mg/dL (75-99)
[2018-09-27] MEDS: methylPREDNISolone SOD SUCCI 40 MG/ML 1 ML VIAL IV SCH ×2 (12:07→20:14)
--- NOTE | 2018-09-27 13:36 | P.PN ---
Subjective Progress Note Date: 09/27/18 78-year-old seen at the bedside with family at the bedside patient is a poor historian currently stating having heartburn after drinking orange juice. Patient has a history of chronic alcoholism drinks a pint of whiskey a day and has been experiencing chronic nausea and vomiting. Patient had developed DTs and was obtunded yesterday today is awake alert oriented to self and place no reports of nausea or vomiting this morning Objective - Vital Signs Vital signs: Vital Signs Temp 97.4 F L 09/27/18 08:00 Pulse 80 09/27/18 11:17 Resp 18 09/27/18 08:00 BP 144/79 09/27/18 08:00 Pulse Ox 94 L 09/27/18 08:00 Intake & Output 09/26/18 09/27/18 09/27/18 18:59 06:59 18:59 Intake Total 200 Balance 200 Weight 79.379 kg Intake: Oral 200 Other: Voiding Method Diaper Diaper Diaper Incontinent Incontinent Incontinent # Voids 2 2 - Exam Physical exam 78-year-old male sitting up in bed talkative appearing in no acute distress oriented to person place and family Lungs adequate air movement bilaterally Heart S1-S2 audible regular Abdomen soft nondistended bowel tones present no facial grimacing with palpitation to the abdominal wall no reports of nausea vomiting Extremities no edema noted - Labs CBC & Chem 7: 09/26/18 09:30 09/26/18 09:30 Labs: Abnormal Lab Results - Last 24 Hours (Table) 09/26/18 09/26/18 09/27/18 Range/Units 17:10 20:13 06:40 POC Glucose (mg/dL) 176 H 196 H 200 H (75-99) mg/dL 09/27/18 Range/Units 12:01 POC Glucose (mg/dL) 183 H (75-99) mg/dL Assessment and Plan Assessment: Impression Present on admission abdominal pain KUB in the emergency room report nonobstructive gas bowel pattern with a CAT scan of the abdomen pelvis ingested debris distending the abdomen [id number] stool within the distal sigmoid colon and rectum olved Chronic alcohol abuse Alcohol withdrawal with encephalopathy likely due to DTs a history of a bleeding ulcer 2014 uncertain of the type Chronic nausea and vomiting per history Plan EGD when patient is medically stable recommended discussed with family at bedside Will follow with you No evidence of an acute surgical abdomen Continue with the [facility] protocol as ordered The above impression and plan of care have been discussed and directed by signing physician. Dolly Garner nurse practitioner acting as scribe for signing physician.
[2018-09-27 14:52] VITALS: BMI 25.8
[2018-09-27] MEDS ORDERED: LIDOCAINE 1% 20 ML VIAL (10MG/ML) FOR IV START INTRADERMA PRN (15:42)
[2018-09-27 16:58] LABS: Glucose,Whole Blood 204 mg/dL (75-99)
[2018-09-27] MEDS: ATORVASTATIN 10 MG TAB PO SCH (17:11)
[2018-09-27] MEDS: NICOTINE 21MG/24HR PATCH TRANSDERM SCH (17:11)
[2018-09-27] MEDS: LACTATED RINGERS 1,000 ML IV SCH (17:12)
[2018-09-27 22:41] LABS: Glucose,Whole Blood 165 mg/dL (75-99)
[2018-09-28] MEDS: LORazepam 2 MG/ML INJ IV PRN ×5 (01:38→18:23)
[2018-09-28] MEDS: methylPREDNISolone SOD SUCCI 40 MG/ML 1 ML VIAL IV SCH ×2 (03:37→07:19)
[2018-09-28 07:01] LABS: Glucose,Whole Blood 192 mg/dL (75-99)
[2018-09-28] MEDS: IPRATROPIUM-ALBUTEROL 3 ML NEB INHALATION SCH ×4 (07:39→20:58)
[2018-09-28] MEDS: POTASSIUM CHLORIDE ER 10 MEQ TAB.ER.PRT PO SCH ×2 (08:34→20:13)
[2018-09-28] MEDS: METOPROLOL TARTRATE 25 MG TAB PO SCH ×2 (08:34→20:13)
[2018-09-28] MEDS: buPROPion XL 150 MG TAB.ER.24H PO SCH (08:34)
[2018-09-28] MEDS: predniSONE 20 MG TAB PO SCH (08:34)
[2018-09-28] MEDS: DULoxetine HCL 60 MG CAPSULE.DR PO SCH ×2 (08:34→20:14)
[2018-09-28] MEDS: CALCIUM CARBONATE 500 MG CHEWABLE PO SCH (08:35)
[2018-09-28] MEDS: INSULIN ASPART 100 UNIT/ML 1 ML 10 ML VIAL SQ SCH ×4 (08:35→20:14)
[2018-09-28] MEDS: IMIPRAMINE 10 MG TAB PO SCH ×3 (08:35→21:57)
[2018-09-28] MEDS: amLODIPine 2.5 MG TAB PO SCH ×2 (08:35→20:14)
[2018-09-28] MEDS: PANTOPRAZOLE 40 MG/10 ML VIAL IVP SCH (11:03)
[2018-09-28 11:08] LABS: Glucose,Whole Blood 160 mg/dL (75-99)
[2018-09-28] MEDS: FOLIC ACID 1 MG TAB PO SCH (12:12)
[2018-09-28] MEDS: MULTIVITAMINS, THERA 1 EACH TAB PO SCH (12:12)
[2018-09-28] MEDS: THIAMINE 100 MG TAB PO SCH ×2 (12:12→16:20)
--- NOTE | 2018-09-28 12:38 | P.PN ---
Subjective Progress Note Date: 09/28/18 Principal diagnosis: Epigastric pain Patient doing better today. More alert. Only mild epigastric pain with cold fluids. No vomiting. Objective - Vital Signs Vital signs: Vital Signs Temp 97.5 F L 09/28/18 05:00 Pulse 89 09/28/18 12:07 Resp 18 09/28/18 12:07 BP 143/80 09/28/18 12:07 Pulse Ox 96 09/28/18 12:07 Intake & Output 09/27/18 09/28/18 09/28/18 18:59 06:59 18:59 Intake Total 386 210 6154 Balance 978 824 8759 Weight 79.379 kg Intake: Intake, IV Titration 160 Amount Lactated Ringers 1,000 ml 160 @ 20 mls/hr IV .Q24H YARITZA Rx#:[id number] Oral 499 475 [id number] Other: Voiding Method Diaper Diaper Diaper Incontinent Incontinent Incontinent # Voids 3 4 1 - Exam Abdomen: Soft, nondistended, mild epigastric tenderness - Labs CBC & Chem 7: 09/26/18 09:30 09/26/18 09:30 Labs: Abnormal Lab Results - Last 24 Hours (Table) 09/27/18 09/27/18 09/28/18 Range/Units 16:54 22:39 06:58 POC Glucose (mg/dL) 204 H 165 H 192 H (75-99) mg/dL 09/28/18 Range/Units 11:06 POC Glucose (mg/dL) 160 H (75-99) mg/dL Assessment and Plan (1) Abdominal pain Narrative/Plan: Continue diet. Plan EGD Sunday. Current Visit: Yes Status: Acute Code(s): R10.9 - UNSPECIFIED ABDOMINAL PAIN SNOMED Code(s): 80639342
[2018-09-28] MEDS: LACTATED RINGERS 1,000 ML IV SCH (16:11)
[2018-09-28] MEDS: ATORVASTATIN 10 MG TAB PO SCH (16:20)
[2018-09-28] MEDS: NICOTINE 21MG/24HR PATCH TRANSDERM SCH (16:20)
[2018-09-28 17:04] LABS: Glucose,Whole Blood 212 mg/dL (75-99)
[2018-09-28] MEDS: ACETAMINOPHEN TAB 325 MG TAB PO PRN (20:13)
[2018-09-28 20:14] LABS: Glucose,Whole Blood 216 mg/dL (75-99)
[2018-09-28] MEDS: MELATONIN 5 MG TABLET PO SCH (20:14)
--- NOTE | 2018-09-29 01:32 | PN ---
PROGRESS NOTE DATE OF SERVICE: 09/28/2008 I am covering for Dr. Chemo Garcia. This 78-year-old gentleman with a past medical history of multiple medical problems admitted with abdominal pain, patient also has history of alcohol abuse and alcohol withdrawals. Patient also has history of encephalopathy and DTs also. The patient also has COPD and patient being closely monitored. Multiple consultants following the patient closely. Dr. Cortez has seen the patient, evaluated abdominal pain and recommended continued follow up and possibly EGD on Sunday. PAST MEDICAL HISTORY: Reviewed. REVIEW OF SYSTEMS: CARDIOVASCULAR: No angina or palpitations. RESPIRATORY: As mentioned earlier. GI: As mentioned earlier. : As mentioned earlier. CURRENT MEDICATIONS ARE: Reviewed and include: 1. Tylenol 650 q.4h p.r.n. 2. DuoNeb q.i.d. and p.r.n. 3. Norvasc 2.5 mg. 4. Lipitor 10 mg. 6. Wellbutrin XR 150 mg daily. 7. Cymbalta 60 mg daily. 8. Folic acid. 9. NovoLog. 10.Tofranil. 11.Ativan. 12.Lopressor. 13.Vitamin B1. 14.P.r.n. medications the doses are reviewed. PHYSICAL EXAM: Patient is alert, oriented x3. Pulse is 90, blood pressure is 143/80, respiration 18, temp is normal. Pulse ox 98% on room air. HEENT: Conjunctivae normal. Oral mucosa moist. Neck is no jugular venous distention. No carotid bruit. No lymph node enlargement. CARDIOVASCULAR SYSTEM: S1, S2 muffled. RESPIRATORY SYSTEM: Breath sounds diminished at the bases. Scattered rhonchi and crackles. ABDOMEN: Soft, mild diffuse tenderness. Legs: Are no edema. No swelling. CENTRAL NERVOUS SYSTEM: No focal deficits. LABS: Accu-Cheks 162, WBC 9.2, hemoglobin 11, sodium 130, potassium 3.4. ASSESSMENT: 1. Abdominal pain with possible acute gastritis. 2. Alcohol abuse and withdrawals and early delirium tremens. 3. History of encephalopathy metabolic secondary to delirium tremens. 4. History of dementia. 5. Chronic obstructive pulmonary disease. 6. History of nicotine dependence. 7. History of acute kidney injury. 8. Hypertension. 9. Diabetes mellitus type 2. 10.History of prostate cancer. RECOMMENDATIONS AND DISCUSSION: Continue current management and continue symptomatic treatment. I would recommend continue with current medications. Repeat labs and continue the bronchodilators. EGD on Sunday. See orders for further details. Further recommendations to follow. MMODL / IJN: [id number] / MTDD
[2018-09-29 07:20] LABS: Basophils % (A) 0 %; Eosinophils % (A) 0 %; HCT 33.3 % (39.0-53.0); HGB 11.4 gm/dL (13.0-17.5); Lymphocytes # (A) 1.5 k/uL (1.0-4.8); Lymphocytes % (A) 16 %; MCHC 34.3 g/dL (31.0-37.0); MCV 99.3 fL (80.0-100.0); Mean Platelet Volume 6.4; Monocytes # (A) 0.9 k/uL (0-1.0); Monocytes % (A) 9 %; Neutrophils # (A) 7.2 k/uL (1.3-7.7); Neutrophils % (A) 74 %; Platelet Count 277 k/uL (150-450); RBC 3.35 m/uL (4.30-5.90); RDW 12.6 % (11.5-15.5); WBC 9.8 k/uL (3.8-10.6)
[2018-09-29 07:28] LABS: Albumin 2.9 g/dL (3.5-5.0); Calcium 8.7 mg/dL (8.4-10.2); Potassium 3.2 mmol/L (3.5-5.1); Total Bilirubin 0.4 mg/dL (0.2-1.3); Total Protein 5.2 g/dL (6.3-8.2)
[2018-09-29] MEDS: IPRATROPIUM-ALBUTEROL 3 ML NEB INHALATION SCH ×4 (08:44→21:49)
[2018-09-29 08:49] LABS: Glucose,Whole Blood 142 mg/dL (75-99)
[2018-09-29] MEDS: POTASSIUM CHLORIDE ER 10 MEQ TAB.ER.PRT PO SCH ×2 (08:50→20:46)
[2018-09-29] MEDS: buPROPion XL 150 MG TAB.ER.24H PO SCH (08:50)
[2018-09-29] MEDS: amLODIPine 2.5 MG TAB PO SCH ×2 (08:50→20:45)
[2018-09-29] MEDS: INSULIN ASPART 100 UNIT/ML 1 ML 10 ML VIAL SQ SCH ×5 (08:50→20:49)
[2018-09-29] MEDS: METOPROLOL TARTRATE 25 MG TAB PO SCH ×2 (08:50→20:46)
[2018-09-29] MEDS: IMIPRAMINE 10 MG TAB PO SCH ×3 (08:50→22:46)
[2018-09-29] MEDS: PANTOPRAZOLE 40 MG/10 ML VIAL IVP SCH (08:51)
[2018-09-29] MEDS: CALCIUM CARBONATE 500 MG CHEWABLE PO SCH (08:51)
[2018-09-29] MEDS: DULoxetine HCL 60 MG CAPSULE.DR PO SCH ×2 (08:51→20:46)
[2018-09-29] MEDS: predniSONE 20 MG TAB PO SCH (08:51)
[2018-09-29] MEDS: THIAMINE 100 MG TAB PO SCH ×3 (08:51→16:30)
--- NOTE | 2018-09-29 10:16 | P.PN ---
Subjective Progress Note Date: 09/29/18 Principal diagnosis: Epigastric pain Patient slightly more alert today. Less confused per the patient's son. White blood cell count normal. Objective - Vital Signs Vital signs: Vital Signs Temp 97.5 F L 09/29/18 05:00 Pulse 78 09/29/18 08:54 Resp 16 09/29/18 08:00 BP 138/64 09/29/18 05:00 Pulse Ox 97 09/29/18 05:00 Intake & Output 09/28/18 09/29/18 09/29/18 18:59 06:59 18:59 Intake Total 3240 1080 300 Output Total 800 Balance 2440 1080 300 Weight 79.379 kg Intake: Oral 3240 1080 300 Output: Urine 800 Other: Voiding Method Diaper Diaper Diaper Incontinent Incontinent Incontinent # Voids 1 1 - Exam Abdomen: Soft, nontender, nondistended - Labs CBC & Chem 7: 09/29/18 06:57 09/29/18 06:57 Labs: Abnormal Lab Results - Last 24 Hours (Table) 09/28/18 09/28/18 09/28/18 Range/Units 11:06 17:02 20:10 RBC (4.30-5.90) m/uL Hgb (13.0-17.5) gm/dL Hct (39.0-53.0) % Potassium (3.5-5.1) mmol/L Chloride (98-107) mmol/L Glucose (74-99) mg/dL POC Glucose (mg/dL) 160 H 212 H 216 H (75-99) mg/dL Total Protein (6.3-8.2) g/dL Albumin (3.5-5.0) g/dL 09/29/18 09/29/18 09/29/18 Range/Units 06:57 06:57 08:47 RBC 3.35 L (4.30-5.90) m/uL Hgb 11.4 L (13.0-17.5) gm/dL Hct 33.3 L (39.0-53.0) % Potassium 3.2 L (3.5-5.1) mmol/L Chloride 110 H (98-107) mmol/L Glucose 131 H (74-99) mg/dL POC Glucose (mg/dL) 142 H (75-99) mg/dL Total Protein 5.2 L (6.3-8.2) g/dL Albumin 2.9 L (3.5-5.0) g/dL Assessment and Plan (1) Abdominal pain Narrative/Plan: Continue diet as tolerated. Plan EGD tomorrow. Current Visit: Yes Status: Acute Code(s): R10.9 - UNSPECIFIED ABDOMINAL PAIN SNOMED Code(s): 36607005
[2018-09-29] MEDS ORDERED: POTASSIUM CHLORIDE ER 20 MEQ TAB.ER PO STA (11:11)
[2018-09-29 11:18] LABS: Glucose,Whole Blood 110 mg/dL (75-99)
[2018-09-29] MEDS: FOLIC ACID 1 MG TAB PO SCH (13:16)
[2018-09-29] MEDS: MULTIVITAMINS, THERA 1 EACH TAB PO SCH (13:17)
[2018-09-29] MEDS: LACTATED RINGERS 1,000 ML IV SCH (16:01)
[2018-09-29] MEDS: ATORVASTATIN 10 MG TAB PO SCH (16:30)
[2018-09-29] MEDS: NICOTINE 21MG/24HR PATCH TRANSDERM SCH (16:31)
[2018-09-29 17:04] LABS: Glucose,Whole Blood 236 mg/dL (75-99)
--- NOTE | 2018-09-29 18:58 | PN ---
PROGRESS NOTE DATE OF SERVICE: 09/29/2018 I am covering for Dr. Garcia. This 78-year-old gentleman who was admitted with abdominal pain with acute gastritis, also continues to be confused. Patient has significant alcohol abuse and patient has withdrawals and possibly delirium tremens also. Patient closely monitored at this time. Dr. Cortez is following the patient closely. EGD is being attended to planned tomorrow. PAST MEDICAL HISTORY: Reviewed. REVIEW OF SYSTEMS: Could not be obtained, the patient is confused. CURRENT MEDICATIONS: Reviewed and include: 1. Tylenol 650 q.4h p.r.n. 2. DuoNeb q.i.d. and p.r.n. 3. Norvasc 2.5 mg daily. 4. Lipitor 10 mg. 5. 260 p.o. q 1 hour. 6. XR 150 mg. 7. TUMS 500 mg. 8. Cymbalta 60 mg b.i.d. 9. Folic acid 1 mg b.i.d. 10.Tofranil 10 mg daily. 11.NovoLog scale. 12.Lactated Ringers. 13.Ativan p.r.n. 14.Melatonin. 15.Lopressor. 16.Multivitamins. 17.Habitrol 14 daily. 18.Protonix. 20.Vitamin B1. PHYSICAL EXAM: Patient is alert, oriented x3. Pulse is 74, blood pressure 131/76, respiratory rate 16, temperature 97.7, pulse ox 98 percent on room air. HEENT: Conjunctivae normal. Oral mucosa moist. NECK: Is no jugular venous distention. No carotid bruit. No lymph node enlargement. Cardiovascular: S1, S2 muffled. RESPIRATORY: Breath sounds diminished in the bases. Bilateral scattered rhonchi and crackles. ABDOMEN: Soft, nontender. Legs are no edema. No swelling. Nervous system: Diffusely weak. LABS: WBC 9.2, hemoglobin ntd, sodium 140,potassium 3.2, and albumin is 2.9. ASSESSMENT: 1. Abdominal pain with possible acute gastritis. 2. Change in mental status acute on chronic metabolic encephalopathy multifactorial. 3. Acute alcohol abuse withdrawals and early delirium tremens. 4. History of dementia. 5. Chronic obstructive pulmonary disease. 6. History of nicotine dependence. 7. History acute kidney injury. 8. Hypertension. 9. Diabetes mellitus type 2. 10.History of prostate cancer. RECOMMENDATIONS AND DISCUSSION: Recommend to continue current medications, management and symptomatic treatment. Otherwise, I would also recommend supplement vitamins and closely follow with surgery for possible EGD. Otherwise, continue to monitor, PT/OT evaluation, possible ECF rehab. Guarded prognosis. Further recommendations to follow. Dr. Garcia will follow. Discussed with family at length. MMODL / IJN: [id number] / JONNIE
[2018-09-29 20:36] LABS: Glucose,Whole Blood 268 mg/dL (75-99)
[2018-09-29] MEDS: MELATONIN 5 MG TABLET PO SCH (20:46)
[2018-09-29] MEDS: LORazepam 2 MG/ML INJ IV PRN ×2 (21:56→23:09)
[2018-09-30] MEDS: LORazepam 2 MG/ML INJ IV PRN ×3 (00:26→04:07)
[2018-09-30] MEDS: IPRATROPIUM-ALBUTEROL 3 ML NEB INHALATION SCH ×4 (08:38→19:21)
[2018-09-30] MEDS: INSULIN ASPART 100 UNIT/ML 1 ML 10 ML VIAL SQ SCH ×5 (09:49→20:37)
--- NOTE | 2018-09-30 09:49 | P.PN ---
Subjective Progress Note Date: 09/30/18 78-year-old male with a past medical history significant for dementia , diabetes, hypertension, and alcohol abuse, who presented to the emergency room with a chief complaint of abdominal pain. The patient is a very poor historian and most of the HPI was obtained from electronic medical record. Apparently the patient was having a 3 day episode of diarrhea and also vomiting 2 days. He was complaining of abdominal pain. He presented to the emergency room for further evaluation. KUB x-ray completed in the emergency room reveals overall nonobstructive bowel gas pattern. CT of abdomen and pelvis revealed prominent ingested debris distending stomach. Mild to moderate stool within the distal sigmoid colon and rectum. Laboratory data upon admission reveals white count 16.3. Hemoglobin 13.7. Platelet count 280. Sodium 133. Potassium 4.0. BUN 43. Creatinine 1.67. Glucose 187. Hemoglobin A1c 5.4 AST 22. ALT 27. Amylase less than 30. Lipase 66. Lactic acid 2.7. Repeat 1.1. Serum alcohol less than 10. Urinalysis revealed trace glucose and ketones. The patient was admitted to the hospital under the care of Dr. Garcia. Consultations were placed to Dr. Browne. The patient was seen and examined this morning at the bedside with Dr. Garcia. The patient remains very confused. Unable to recognize Dr. Garcia. Patient denies abdominal pain at this time. Denies nausea or vomiting. Reports some mild shortness of breath. Denies cough or congestion. 09/27/2018 Patient examined at the bedside. Patient resting comfortably. Speech has improved today. Confusion still present. He remains on [place] protocol. Awaiting general medical bed. 09/30/2018 Patient examined at the bedside. patient remains confused, although overall confusion is improving since admission. He denies SOB or chest pain. He is NPO. Scheduled for EGD today. PHYSICAL EXAM: GENERAL: This is a 78-year-old male in no apparent distress at the time of examination. HEENT: Head is atraumatic, normocephalic. Pupils are equal, round, and reactive to light. Sclerae anicteric. Conjunctivae are clear. Mucus membranes of the mouth are moist. Neck is supple. RESPIRATORY: Diminished. No use of accessory muscles. Patient maintaining oxygen saturation greater than 92%. CARDIOVASCULAR: Regular rate and rhythm. S1 and S2 noted. No JVD noted. No S3 or S4 noted. GASTROINTESTINAL: No distention noted. Abdomen soft and round. Normal active bowel sounds auscultated x 4 quadrants. No pain or tenderness noted upon palpation. INTEGUMENTARY: No cyanosis. No jaundice. No rashes noted. No cellulitis noted. EXTREMITIES: 2+ peripheral pulses. No evidence of peripheral edema. No calf tenderness noted. NEUROLOGIC: Cranial nerves II-XII intact. PSYCHIATRIC: A/O to self only ASSESSMENT: Abdominal pain, etiology unclear, resolved Alcohol abuse Alcohol withdrawal, last drink Sunday Encephalopathy, may be due to DTs History of dementia Likely diagnosis of COPD due to patients smoking history with acute exacerbation Acute kidney injury, creatinine 1.67 on admission, secondary to hypovolemia due to diarrhea and decreased oral intake Nicotine depedence Hypertension Diabetes mellitus, type II History of prostate cancer PLAN: Dr. Browne on consult. Appreciate recommendations and input Patient scheduled for EGD today Decrease prednisone to 30mg Discontinue IV ativan Duoneb treatments QID and PRN Nicotine patch Home meds as appropriate Monitor labs GI prophylaxis: Protonix 40 mg IV Daily DVT prophylaxis: ARCHIE hose to bilateral LE Monitor vital signs and address as appropriate Discharge planning: ECF Further recommendations pending patient's course Possible discharge this afternoon or tomorrow to ECF Nurse practitioner note has been reviewed by physician. Signing provider agrees with the documented findings, assessment, and plan of care. Objective - Vital Signs Vital signs: Vital Signs Temp 98.3 F 09/30/18 04:11 Pulse 88 09/30/18 08:46 Resp 16 09/30/18 04:11 BP 125/76 09/30/18 04:11 Pulse Ox 95 09/30/18 04:11 Intake & Output 09/29/18 09/30/18 09/30/18 18:59 06:59 18:59 Intake Total 2700 540 Balance 2700 540 Intake: Oral 2700 540 Other: Voiding Method Diaper Toilet Incontinent Diaper Incontinent # Voids 2 3 - Labs CBC & Chem 7: 09/29/18 06:57 09/29/18 06:57 Labs: Abnormal Lab Results - Last 24 Hours (Table) 09/29/18 09/29/18 09/29/18 Range/Units 11:16 17:01 20:33 POC Glucose (mg/dL) 110 H 236 H 268 H (75-99) mg/dL
[2018-09-30] MEDS: predniSONE 20 MG TAB PO SCH ×2 (09:52→11:18)
[2018-09-30] MEDS: IMIPRAMINE 10 MG TAB PO SCH ×3 (09:52→21:21)
[2018-09-30] MEDS: POTASSIUM CHLORIDE ER 10 MEQ TAB.ER.PRT PO SCH ×2 (09:53→20:37)
[2018-09-30] MEDS: CALCIUM CARBONATE 500 MG CHEWABLE PO SCH (09:53)
[2018-09-30] MEDS: THIAMINE 100 MG TAB PO SCH ×4 (09:53→11:37)
[2018-09-30] MEDS: METOPROLOL TARTRATE 25 MG TAB PO SCH ×2 (09:53→20:37)
[2018-09-30] MEDS: buPROPion XL 150 MG TAB.ER.24H PO SCH (09:53)
[2018-09-30] MEDS: PANTOPRAZOLE 40 MG/10 ML VIAL IVP SCH (09:54)
[2018-09-30] MEDS: amLODIPine 2.5 MG TAB PO SCH ×2 (09:55→20:37)
[2018-09-30] MEDS: FOLIC ACID 1 MG TAB PO SCH (09:55)
[2018-09-30] MEDS: DULoxetine HCL 60 MG CAPSULE.DR PO SCH ×2 (09:55→20:37)
[2018-09-30] MEDS: MULTIVITAMINS, THERA 1 EACH TAB PO SCH (09:56)
[2018-09-30 10:26] LABS: Basophils % (A) 0 %; Eosinophils # (A) 0.1 k/uL (0-0.7); Eosinophils % (A) 1 %; HCT 34.2 % (39.0-53.0); HGB 11.6 gm/dL (13.0-17.5); Lymphocytes # (A) 1.8 k/uL (1.0-4.8); Lymphocytes % (A) 24 %; MCH 34.1 pg (25.0-35.0); MCHC 33.9 g/dL (31.0-37.0); MCV 100.3 fL (80.0-100.0); Mean Platelet Volume 6.5; Monocytes # (A) 0.6 k/uL (0-1.0); Monocytes % (A) 8 %; Neutrophils # (A) 5.1 k/uL (1.3-7.7); Neutrophils % (A) 67 %; Platelet Count 271 k/uL (150-450); RBC 3.41 m/uL (4.30-5.90); RDW 12.6 % (11.5-15.5); WBC 7.6 k/uL (3.8-10.6)
[2018-09-30 10:37] LABS: Albumin 2.8 g/dL (3.5-5.0); Calcium 8.7 mg/dL (8.4-10.2); Potassium 3.7 mmol/L (3.5-5.1); Total Bilirubin 0.4 mg/dL (0.2-1.3); Total Protein 5.1 g/dL (6.3-8.2)
[2018-09-30] MEDS ORDERED: SODIUM CHLORIDE 0.9% 1,000 ML IV ONE (11:59)
--- NOTE | 2018-09-30 12:16 | P.OP ---
Date of Procedure: 09/30/18 Preoperative Diagnosis: Dysphagia Postoperative Diagnosis: Severe esophagitis Antral gastritis Hiatal hernia Anesthesia: MAC Surgeon: Thang Browne Pathology: other (Esophagus, antrum) Condition: stable Disposition: PACU Description of Procedure: The patient's placed on the endoscopy table in the lateral position. He received IV sedation. The gastroscope placed oropharynx passed in the esophagus into the stomach. Scope was then placed through the pylorus. The first and second portion of the duodenum appeared normal. Scope was then brought back the antrum and this appeared mildly inflamed. A biopsies was performed. The scope was then retroflexed and the remainder of the stomach appeared normal. There was a moderate size hiatal hernia. The GE junction was at 38 cm. The distal esophagus appeared inflamed a biopsies was performed. The proximal esophagus appeared normal. Scope was withdrawn for patient.
[2018-09-30] MEDS: PANTOPRAZOLE SODIUM 40 MG GRANULE PKT PO SCH (12:59)
[2018-09-30 13:05] LABS: Glucose,Whole Blood 176 mg/dL (75-99)
[2018-09-30] MEDS: LACTATED RINGERS 1,000 ML IV SCH (16:02)
[2018-09-30] MEDS: LORazepam 1 MG TAB PO PRN (16:02)
[2018-09-30] MEDS: NICOTINE 21MG/24HR PATCH TRANSDERM SCH (16:03)
[2018-09-30] MEDS: ATORVASTATIN 10 MG TAB PO SCH (16:03)
[2018-09-30 17:14] LABS: Glucose,Whole Blood 253 mg/dL (75-99)
[2018-09-30] MEDS: MELATONIN 5 MG TABLET PO SCH (20:37)
[2018-09-30 20:43] LABS: Glucose,Whole Blood 154 mg/dL (75-99)
[2018-09-30] MEDS: ACETAMINOPHEN TAB 325 MG TAB PO PRN (21:21)
[2018-10-01] MEDS: LORazepam 1 MG TAB PO PRN (00:15)
[2018-10-01 06:56] LABS: Glucose,Whole Blood 100 mg/dL (75-99)
[2018-10-01] MEDS: IPRATROPIUM-ALBUTEROL 3 ML NEB INHALATION SCH ×3 (07:37→15:31)
[2018-10-01] MEDS: INSULIN ASPART 100 UNIT/ML 1 ML 10 ML VIAL SQ SCH ×2 (08:03→13:36)
[2018-10-01 08:49] LABS: Basophils % (A) 0 %; Eosinophils # (A) 0.1 k/uL (0-0.7); Eosinophils % (A) 1 %; HCT 34.6 % (39.0-53.0); HGB 11.7 gm/dL (13.0-17.5); Lymphocytes # (A) 2.1 k/uL (1.0-4.8); Lymphocytes % (A) 22 %; MCH 33.9 pg (25.0-35.0); MCHC 33.9 g/dL (31.0-37.0); Mean Platelet Volume 6.7; Monocytes # (A) 0.7 k/uL (0-1.0); Monocytes % (A) 7 %; Neutrophils # (A) 6.7 k/uL (1.3-7.7); Neutrophils % (A) 69 %; Platelet Count 304 k/uL (150-450); RBC 3.46 m/uL (4.30-5.90); RDW 12.4 % (11.5-15.5); WBC 9.8 k/uL (3.8-10.6)
[2018-10-01 09:04] LABS: Albumin 2.7 g/dL (3.5-5.0); Calcium 8.7 mg/dL (8.4-10.2); Potassium 4.1 mmol/L (3.5-5.1); Total Bilirubin 0.5 mg/dL (0.2-1.3); Total Protein 5.1 g/dL (6.3-8.2)
--- NOTE | 2018-10-01 09:40 | P.DS ---
Providers Date of admission: 09/26/18 11:25 Expected date of discharge: 10/01/18 Attending physician: Chemo Garcia Consults: 09/25/18 19:35 Consult Physician Routine Consulting Provider: Thang Browne Consult Reason/Comments: abdominal pain Do you want consulting provider notified?: Yes Primary care physician: Chemo Garcia [facility] Course: 78-year-old male with a past medical history significant for dementia , diabetes, hypertension, and alcohol abuse, who presented to the emergency room with a chief complaint of abdominal pain. The patient is a very poor historian and most of the HPI was obtained from electronic medical record. Apparently the patient was having a 3 day episode of diarrhea and also vomiting 2 days. He was complaining of abdominal pain. He presented to the emergency room for further evaluation. KUB x-ray completed in the emergency room reveals overall nonobstructive bowel gas pattern. CT of abdomen and pelvis revealed prominent ingested debris distending stomach. Mild to moderate stool within the distal sigmoid colon and rectum. Laboratory data upon admission reveals white count 16.3. Hemoglobin 13.7. Platelet count 280. Sodium 133. Potassium 4.0. BUN 43. Creatinine 1.67. Glucose 187. Hemoglobin A1c 5.4 AST 22. ALT 27. Amylase less than 30. Lipase 66. Lactic acid 2.7. Repeat 1.1. Serum alcohol less than 10. Urinalysis revealed trace glucose and ketones. The patient was admitted to the hospital under the care of Dr. Garcia. Consultations were placed to Dr. Browne. The patient was seen and examined this morning at the bedside with Dr. Garcia. The patient remains very confused. Unable to recognize Dr. Garcia. Patient denies abdominal pain at this time. Denies nausea or vomiting. Reports some mild shortness of breath. Denies cough or congestion. 09/27/2018 Patient examined at the bedside. Patient resting comfortably. Speech has improved today. Confusion still present. He remains on CIWA protocol. Awaiting general medical bed. 09/30/2018 Patient examined at the bedside. patient remains confused, although overall confusion is improving since admission. He denies SOB or chest pain. He is NPO. Scheduled for EGD today. 10/01/2018 Patient examined at the bedside. Remains confused, but improving. Denies SOB. Denies chest pain or pressure. He underwent EGD yesterday revealing severe esophagitis, antral gastritis, and hiatal hernia. He remains debilitated and deconditioned. He requires subacute rehab at the time of discharge. He is stable for discharge toECF today. Discharge Diagnosis: Abdominal pain, etiology unclear, resolved, s/p EGD revealing severe esophagitis , antral gastritis, and hiatal hernia. Alcohol abuse Alcohol withdrawal, last drink Sunday Encephalopathy, may be due to DTs History of dementia Likely diagnosis of COPD due to patients smoking history with acute exacerbation Acute kidney injury, creatinine 1.67 on admission, secondary to hypovolemia due to diarrhea and decreased oral intake Nicotine dependence Hypertension Diabetes mellitus, type II History of prostate cancer Nurse practitioner note has been reviewed by physician. Signing provider agrees with the documented findings, assessment, and plan of care. Plan - Discharge Summary Discharge Rx Participant: No New Discharge Prescriptions: New Ipratropium-Albuterol Nebulize [Duoneb 0.5 mg-3 mg/3 ml Soln] 3 ml INHALATION RT-QID ampul.neb LORazepam [Ativan] 1 mg PO Q8HR PRN tab PRN Reason: Anxiety Nicotine 21Mg/24Hr Patch [Habitrol] 1 patch TRANSDERM DAILY@1800 patch predniSONE See Taper PO DIRECTED #18 tab Continue DULoxetine HCL [Cymbalta] 60 mg PO BID Repaglinide [Prandin] 0.5 mg PO DAILY Imipramine [Tofranil] 10 mg PO TID Atorvastatin [Lipitor] 10 mg PO W/SUPPER Folic Acid 1 mg PO DAILY Bismuth Subsalicylate [Pepto-Bismol] 262 mg PO Q1H PRN PRN Reason: Gi Upset Cholecalciferol [Vitamin D3] 2,000 unit PO ONCE Aspirin [Adult Low Dose Aspirin EC] 81 mg PO DAILY Melatonin 10 mg PO HS buPROPion HCL [Wellbutrin XL] 150 mg PO DAILY Thiamine [Vitamin B-1] 100 mg PO DAILY Insulin Glargine,Hum.rec.anlog [Toucatarino Solostpaty] 10 units SQ DAILY Pantoprazole Sodium 40 mg PO DAILY Potassium Chloride [Klor-Con 10] 10 meq PO BID amLODIPine [Norvasc] 2.5 mg PO BID Metoprolol Tartrate 25 mg PO BID Calcium Carbonate [Tums] 500 mg PO DAILY Discontinued Zolpidem Tartrate [Ambien] 5 - 10 mg PO HS PRN PRN Reason: Insomnia Discharge Medication List DULoxetine HCL [Cymbalta] 60 mg PO BID 07/16/14 [History] Atorvastatin [Lipitor] 10 mg PO W/SUPPER 05/15/16 [History] Folic Acid 1 mg PO DAILY 05/15/16 [History] Imipramine [Tofranil] 10 mg PO TID 05/15/16 [History] Repaglinide [Prandin] 0.5 mg PO DAILY 05/15/16 [History] Aspirin [Adult Low Dose Aspirin EC] 81 mg PO DAILY 09/25/18 [History] Bismuth Subsalicylate [Pepto-Bismol] 262 mg PO Q1H PRN 09/25/18 [History] Calcium Carbonate [Tums] 500 mg PO DAILY 09/25/18 [History] Cholecalciferol [Vitamin D3] 2,000 unit PO ONCE 09/25/18 [History] Insulin Glargine,Hum.rec.anlog [Toujeo Solostar] 10 units SQ DAILY 09/25/18 [ History] Melatonin 10 mg PO HS 09/25/18 [History] Metoprolol Tartrate 25 mg PO BID 09/25/18 [History] Pantoprazole Sodium 40 mg PO DAILY 09/25/18 [History] Potassium Chloride [Klor-Con 10] 10 meq PO BID 09/25/18 [History] Thiamine [Vitamin B-1] 100 mg PO DAILY 09/25/18 [History] amLODIPine [Norvasc] 2.5 mg PO BID 09/25/18 [History] buPROPion HCL [Wellbutrin XL] 150 mg PO DAILY 09/25/18 [History] Ipratropium-Albuterol Nebulize [Duoneb 0.5 mg-3 mg/3 ml Soln] 3 ml INHALATION RT -QID ampul.neb 10/01/18 [Rx] LORazepam [Ativan] 1 mg PO Q8HR PRN tab 10/01/18 [Rx] Nicotine 21Mg/24Hr Patch [Habitrol] 1 patch TRANSDERM DAILY@1800 patch [Rx] predniSONE See Taper PO DIRECTED #18 tab 10/01/18 [Rx] Follow up Appointment(s)/Referral(s): Chemo Garcia DO [Primary Care Provider] - 1 Week (1 week after dc from ECF) Thang Browne MD [STAFF PHYSICIAN] - 1 Week Activity/Diet/Wound Care/Special Instructions: Consistent carb diet Dysphagia level 3: chopped Activity as tolerated Discharge Disposition: TRANSFER TO SNF/ECF
[2018-10-01] MEDS: DULoxetine HCL 60 MG CAPSULE.DR PO SCH (10:06)
[2018-10-01] MEDS: METOPROLOL TARTRATE 25 MG TAB PO SCH (10:07)
[2018-10-01] MEDS: buPROPion XL 150 MG TAB.ER.24H PO SCH (10:07)
[2018-10-01] MEDS: POTASSIUM CHLORIDE ER 10 MEQ TAB.ER.PRT PO SCH (10:08)
[2018-10-01] MEDS: amLODIPine 2.5 MG TAB PO SCH (10:08)
[2018-10-01] MEDS: MULTIVITAMINS, THERA 1 EACH TAB PO SCH (10:08)
[2018-10-01] MEDS: IMIPRAMINE 10 MG TAB PO SCH (10:08)
[2018-10-01] MEDS: PANTOPRAZOLE SODIUM 40 MG GRANULE PKT PO SCH (10:09)
[2018-10-01] MEDS: predniSONE 20 MG TAB PO SCH (10:09)
[2018-10-01] MEDS: CALCIUM CARBONATE 500 MG CHEWABLE PO SCH (10:09)
[2018-10-01] MEDS: THIAMINE 100 MG TAB PO SCH (10:09)
[2018-10-01 11:20] VITALS: PULSE 80
[2018-10-01 11:39] LABS: Glucose,Whole Blood 213 mg/dL (75-99)
[2018-10-01 12:06] VITALS: BP 119/67; RESP 18; TEMP 97.8
[2018-10-01] MEDS: FOLIC ACID 1 MG TAB PO SCH (13:38)
== END 2018-10-01 15:42 | DRG 896 ==
LOC: EC 11:51 → 3NMEDONC 15:13 → 1SOBS 15:54 → EEVIPCON 09-26 11:25 → OBSVTOIN 09-26 11:25 → 3NMEDONC 09-27 18:34 → 1SOBS 09-27 18:37 → 3NMEDONC 09-27 20:00
PROVIDERS: ADMIT Family Medicine; ATTEND Family Medicine
PROC: 0DB78ZX Excision of Stomach, Pylorus, Via Natural or Artificial Opening Endoscopic, Diagnostic (ICD-10-PCS; 2018-09-30)
PROC: 0DB38ZX Excision of Lower Esophagus, Via Natural or Artificial Opening Endoscopic, Diagnostic (ICD-10-PCS; principal; 2018-09-30 07:30)
DX: F10.231 Alcohol dependence with withdrawal delirium (principal); G93.41 Metabolic encephalopathy; N17.9 Acute kidney failure, unspecified; J44.1 Chronic obstructive pulmonary disease with (acute) exacerbation; K29.00 Acute gastritis without bleeding; F17.200 Nicotine dependence, unspecified, uncomplicated; K21.0 Gastro-esophageal reflux disease with esophagitis; E11.9 Type 2 diabetes mellitus without complications; F03.90 Unspecified dementia, unspecified severity, without behavioral disturbance, psychotic disturbance, mood disturbance, and anxiety; I10 Essential (primary) hypertension; E86.1 Hypovolemia; K44.9 Diaphragmatic hernia without obstruction or gangrene; R19.7 Diarrhea, unspecified; R13.10 Dysphagia, unspecified; R53.81 Other malaise; G43.909 Migraine, unspecified, not intractable, without status migrainosus; Z90.49 Acquired absence of other specified parts of digestive tract; Z85.46 Personal history of malignant neoplasm of prostate; Z79.82 Long term (current) use of aspirin; Z79.899 Other long term (current) drug therapy; Z79.4 Long term (current) use of insulin; Z91.81 History of falling
CPT/HCPCS: 36415; 43239; 51702; 70450; 71046; 74018; 74176; 80053; 80320; 81003; 82150; 83036; 83605; 83690; 85025; 85610; 85730; 93005; 94640; 96361; 96374; 99285

== ENCOUNTER 2018-10-13 02:45 | Emergency (ER) | payer MEDICARE, BC ==
--- NOTE | 2018-10-13 02:52 | ED ---
General Adult HPI <Sol Branch - Last Filed: 10/13/18 04:54> <Letty Galeas - Last Filed: 10/13/18 09:32> - General Stated complaint: Altered Mental Status - History of Present Illness Initial comments: 78-year-old male patient presents to the emergency department today sent by staff at detention facility for increased agitation and and reported combativeness. Patient is alert but oriented 1 only. Unable to state where he is or why he is here. He does have dementia and is a poor historian. He denies any current physical symptoms or concerns. States he is feeling well. Patient denies any recent rash, fever, chills, shortness breath, chest pain, abdominal pain, nausea, vomiting, diarrhea, constipation, back pain, numbness, tingling, dizziness, weakness, hematuria, dysuria, urinary urgency, urinary frequency, headache, visual changes, or any other complaints. (Sol Branch) - Related Data Home Medications Medication Instructions Recorded Confirmed DULoxetine HCL [Cymbalta] 60 mg PO BID 07/16/14 09/25/18 Atorvastatin [Lipitor] 10 mg PO W/SUPPER 05/15/16 09/25/18 Folic Acid 1 mg PO DAILY 05/15/16 09/25/18 Imipramine [Tofranil] 10 mg PO TID 05/15/16 09/25/18 Repaglinide [Prandin] 0.5 mg PO DAILY 05/15/16 09/25/18 Aspirin [Adult Low Dose Aspirin EC] 81 mg PO DAILY 09/25/18 09/25/18 Bismuth Subsalicylate 262 mg PO Q1H PRN 09/25/18 09/25/18 [Pepto-Bismol] Calcium Carbonate [Tums] 500 mg PO DAILY 09/25/18 09/25/18 Cholecalciferol [Vitamin D3] 2,000 unit PO ONCE 09/25/18 09/25/18 Insulin Glargine,Hum.rec.anlog 10 units SQ DAILY 09/25/18 09/25/18 [Soy Solostpaty] Melatonin 10 mg PO HS 09/25/18 09/25/18 Metoprolol Tartrate 25 mg PO BID 09/25/18 09/25/18 Pantoprazole Sodium 40 mg PO DAILY 09/25/18 09/25/18 Potassium Chloride [Klor-Con 10] 10 meq PO BID 09/25/18 09/25/18 Thiamine [Vitamin B-1] 100 mg PO DAILY 09/25/18 09/25/18 amLODIPine [Norvasc] 2.5 mg PO BID 09/25/18 09/25/18 buPROPion HCL [Wellbutrin XL] 150 mg PO DAILY 09/25/18 09/25/18 Previous Rx's Medication Instructions Recorded Ipratropium-Albuterol Nebulize 3 ml INHALATION RT-QID ampul.neb 10/01/18 [Duoneb 0.5 mg-3 mg/3 ml Soln] LORazepam [Ativan] 1 mg PO Q8HR PRN tab 10/01/18 Nicotine 21Mg/24Hr Patch [Habitrol] 1 patch TRANSDERM DAILY@1800 patch 10/01/18 predniSONE See Taper PO DIRECTED #18 tab 10/01/18 Allergies Allergy/AdvReac Type Severity Reaction Status Date / Time zolpidem tartrate AdvReac Hallucinati Verified 10/13/18 02:54 [From Sarah] ons Review of Systems ROS Other: All systems not noted in ROS Statement are negative. <Sol Branch M - Last Filed: 10/13/18 04:54> ROS Other: All systems not noted in ROS Statement are negative. <Letty Galeas - Last Filed: 10/13/18 09:32> ROS Statement: Those systems with pertinent positive or pertinent negative responses have been documented in the HPI. Past Medical History Past Medical History: Cancer, Dementia, Diabetes Mellitus, GERD/Reflux, Hypertension, Memory Impairment, Pneumonia, Prostate Disorder Additional Past Medical History / Comment(s): Prostate cancer. 2015 bleeding ulcer. migraines, uses walker when up. past fall 3 months ago, pne vaccine- entry writer unable to verify date at time of admit,dr david estes.please verify in am. History of Any Multi-Drug Resistant Organisms: None Reported Past Surgical History: Cholecystectomy, Orthopedic Surgery, Prostate Surgery Additional Past Surgical History / Comment(s): knee left, right leg, back. prostate removed.lt elbow Past Anesthesia/Blood Transfusion Reactions: No Reported Reaction Past Alcohol Use History: Daily, None Reported - Past Family History Father Additional Family Medical History / Comment(s): ulcers Mother History Unknown: Yes Additional Family Medical History / Comment(s): migraines Brother(s) Family Medical History: Cancer Additional Family Medical History / Comment(s): patient unsure what type of cancer <Richie Galeasssica P - Last Filed: 10/13/18 09:32> General Exam General appearance: alert, in no apparent distress, other (This is a well- developed, well-nourished adult male patient in no acute distress. Vital signs upon presentation are temperature 98.2F, pulse 74, respirations 18, Blood pressure 121/91, pulse ox 98% on room air.) Head exam: Present: atraumatic, normocephalic, normal inspection Eye exam: Present: normal appearance, PERRL, EOMI. Absent: scleral icterus, conjunctival injection, periorbital swelling ENT exam: Present: normal exam, normal oropharynx, mucous membranes moist Respiratory exam: Present: normal lung sounds bilaterally. Absent: respiratory distress, wheezes, rales, rhonchi, stridor Cardiovascular Exam: Present: regular rate, normal rhythm, normal heart sounds. Absent: systolic murmur, diastolic murmur, rubs, gallop, clicks GI/Abdominal exam: Present: soft, normal bowel sounds. Absent: distended, tenderness, guarding, rebound, rigid Neurological exam: Present: alert, CN II-XII intact. Absent: oriented X3 ( Oriented 1) Psychiatric exam: Present: normal affect, normal mood Skin exam: Present: warm, dry, intact, normal color. Absent: rash <Sol Branch M - Last Filed: 10/13/18 04:54> Vital Signs 10/13/18 10/13/18 10/13/18 02:49 03:32 05:21 Temperature 98.2 F 98.0 F Pulse Rate 74 69 89 Respiratory 18 15 18 Rate Blood Pressure 121/91 104/73 O2 Sat by Pulse 98 98 Oximetry EKG Findings - EKG Comments: EKG Findings:: EKG obtained at 03 27 shows normal sinus rhythm with a ventricular rate of 72, [place] interval 180, QRS duration 84, QT 378, QTC 413. No evidence of ST elevation or depression. <Sol Branch M - Last Filed: 10/13/18 04:54> Medical Decision Making - Lab Data Result diagrams: 10/13/18 03:00 10/13/18 03:00 - EKG Data -: EKG Interpreted by Me - Radiology Data Radiology results: report reviewed, image reviewed <Sol Branch - Last Filed: 10/13/18 04:54> - Lab Data Result diagrams: 10/13/18 03:00 10/13/18 03:00 <Letty Galeas - Last Filed: 10/13/18 09:32> - Medical Decision Making 78-year-old male patient presents to the emergency department today for evaluation of increased agitation, reports from nursing staff at the detention facility stated patient was being aggressive. Upon arrival patient is calm and cooperative. Labs reviewed and are unremarkable. CT brain and C- spine was negative. Urinalysis negative for any evidence of infection. Patient exhibited no aggressive behavior here. He will be discharged back to the nursing facility, they are instructed to discuss with primary care physician alternative strategies to keep patient call. (Sol Branch) I personally saw and examined the patient. I reviewed and agree with the mid- level provider findings including all diagnostic interpretations and treatment plans as written unless otherwise stated. I was present for evans portions of any procedures performed. This patient care with patient's guardian, advised patient was evaluated, there are no acute findings the patient was discharged back to SNF (Letty Galeas) - Lab Data Lab Results 10/13/18 10/13/18 10/13/18 Range/Units 03:00 03:00 03:00 WBC 10.7 H (3.8-10.6) k/uL RBC 3.34 L (4.30-5.90) m/uL Hgb 11.3 L (13.0-17.5) gm/dL Hct 34.0 L (39.0-53.0) % MCV 101.9 H (80.0-100.0) fL MCH 33.8 (25.0-35.0) pg MCHC 33.2 (31.0-37.0) g/dL RDW 12.3 (11.5-15.5) % Plt Count 226 (150-450) k/uL Neutrophils % 78 % Lymphocytes % 14 % Monocytes % 5 % Eosinophils % 1 % Basophils % 0 % Neutrophils # 8.4 H (1.3-7.7) k/uL Lymphocytes # 1.5 (1.0-4.8) k/uL Monocytes # 0.5 (0-1.0) k/uL Eosinophils # 0.2 (0-0.7) k/uL Basophils # 0.0 (0-0.2) k/uL PT (9.0-12.0) sec INR (<1.2) APTT (22.0-30.0) sec Sodium 138 (137-145) mmol/L Potassium 4.3 (3.5-5.1) mmol/L Chloride 108 H (98-107) mmol/L Carbon Dioxide 24 (22-30) mmol/L Anion Gap 6 mmol/L BUN 19 (9-20) mg/dL Creatinine 1.44 H (0.66-1.25) mg/dL Est GFR (CKD-EPI)AfAm 53 (>60 ml/min/1.73 sqM) Est GFR (CKD-EPI)NonAf 46 (>60 ml/min/1.73 sqM) Glucose 99 (74-99) mg/dL Calcium 8.5 (8.4-10.2) mg/dL Magnesium 1.7 (1.6-2.3) mg/dL Total Bilirubin 0.5 (0.2-1.3) mg/dL AST 18 (17-59) U/L ALT 38 (21-72) U/L Alkaline Phosphatase 55 (38-126) U/L Total Creatine Kinase 56 (55-170) U/L CK-MB (CK-2) 2.0 (0.0-2.4) ng/mL CK-MB (CK-2) Rel Index 3.6 Troponin I <0.012 (0.000-0.034) ng/mL Total Protein 5.3 L (6.3-8.2) g/dL Albumin 2.9 L (3.5-5.0) g/dL Urine Color Urine Appearance (Clear) Urine pH (5.0-8.0) Ur Specific [place] (1.001-1.035) Urine Protein (Negative) Urine Glucose (UA) (Negative) Urine Ketones (Negative) Urine Blood (Negative) Urine Nitrite (Negative) Urine Bilirubin (Negative) Urine Urobilinogen (<2.0) mg/dL Ur Leukocyte Esterase (Negative) 12/16/18 12/16/18 Range/Units 03:00 04:31 WBC (3.8-10.6) k/uL RBC (4.30-5.90) m/uL Hgb (13.0-17.5) gm/dL Hct (39.0-53.0) % MCV (80.0-100.0) fL MCH (25.0-35.0) pg MCHC (31.0-37.0) g/dL RDW (11.5-15.5) % Plt Count (150-450) k/uL Neutrophils % % Lymphocytes % % Monocytes % % Eosinophils % % Basophils % % Neutrophils # (1.3-7.7) k/uL Lymphocytes # (1.0-4.8) k/uL Monocytes # (0-1.0) k/uL Eosinophils # (0-0.7) k/uL Basophils # (0-0.2) k/uL PT 9.7 (9.0-12.0) sec INR 0.9 (<1.2) APTT 23.1 (22.0-30.0) sec Sodium (137-145) mmol/L Potassium (3.5-5.1) mmol/L Chloride (98-107) mmol/L Carbon Dioxide (22-30) mmol/L Anion Gap mmol/L BUN (9-20) mg/dL Creatinine (0.66-1.25) mg/dL Est GFR (CKD-EPI)AfAm (>60 ml/min/1.73 sqM) Est GFR (CKD-EPI)NonAf (>60 ml/min/1.73 sqM) Glucose (74-99) mg/dL Calcium (8.4-10.2) mg/dL Magnesium (1.6-2.3) mg/dL Total Bilirubin (0.2-1.3) mg/dL AST (17-59) U/L ALT (21-72) U/L Alkaline Phosphatase (38-126) U/L Total Creatine Kinase (55-170) U/L CK-MB (CK-2) (0.0-2.4) ng/mL CK-MB (CK-2) Rel Index Troponin I (0.000-0.034) ng/mL Total Protein (6.3-8.2) g/dL Albumin (3.5-5.0) g/dL Urine Color Light Yellow Urine Appearance Clear (Clear) Urine pH 6.0 (5.0-8.0) Ur Specific [place] 1.003 (1.001-1.035) Urine Protein Negative (Negative) Urine Glucose (UA) Negative (Negative) Urine Ketones Negative (Negative) Urine Blood Negative (Negative) Urine Nitrite Negative (Negative) Urine Bilirubin Negative (Negative) Urine Urobilinogen <2.0 (<2.0) mg/dL Ur Leukocyte Esterase Negative (Negative) - Radiology Data CT brain C-spine without contrast was obtained. Report was reviewed in its entirety. Impression by Dr. Romero shows report atrophy and mild hydrocephalus. Old left posterior frontal lobe can or infarct. No change. Mild degenerative changes in the cervical spine. No fracture. One view x-ray of the chest is obtained. Report was reviewed in its entirety. Impression by Dr. Romero shows no active cardiopulmonary disease. No change. (Sol Brnach) Disposition Is patient prescribed a controlled substance at d/c from ED?: No Time of Disposition: 04:53 <Sol Branch - Last Filed: 10/13/18 04:54> <Letty Galeas - Last Filed: 10/13/18 09:32> Clinical Impression: Agitation, Dementia Disposition: HOME SELF-CARE Condition: Good Instructions: Dementia (ED) Additional Instructions: Use Ativan as needed for agitation. Discuss alternative options with the primary care physician. Return immediately for any new, worsening, or concerning symptoms. Referrals: Chemo Garcia DO [Doctor of Osteopathic Medicine] - 1-2 days
[2018-10-13] MEDS ORDERED: SODIUM CHLORIDE 0.9% 1,000 ML IV STA (02:53)
[2018-10-13 03:27] LABS: Basophils % (A) 0 %; Eosinophils # (A) 0.2 k/uL (0-0.7); Eosinophils % (A) 1 %; HGB 11.3 gm/dL (13.0-17.5); Lymphocytes # (A) 1.5 k/uL (1.0-4.8); Lymphocytes % (A) 14 %; MCH 33.8 pg (25.0-35.0); MCHC 33.2 g/dL (31.0-37.0); MCV 101.9 fL (80.0-100.0); Mean Platelet Volume 6.3; Monocytes # (A) 0.5 k/uL (0-1.0); Monocytes % (A) 5 %; Neutrophils # (A) 8.4 k/uL (1.3-7.7); Neutrophils % (A) 78 %; Platelet Count 226 k/uL (150-450); RBC 3.34 m/uL (4.30-5.90); RDW 12.3 % (11.5-15.5); WBC 10.7 k/uL (3.8-10.6)
[2018-10-13 03:38] LABS: Albumin 2.9 g/dL (3.5-5.0); Calcium 8.5 mg/dL (8.4-10.2); Magnesium 1.7 mg/dL (1.6-2.3); Potassium 4.3 mmol/L (3.5-5.1); Total Bilirubin 0.5 mg/dL (0.2-1.3); Total Protein 5.3 g/dL (6.3-8.2)
[2018-10-13 03:51] LABS: Creatine Kinase 56 U/L (55-170)
[2018-10-13 04:04] LABS: Troponin I <0.012 ng/mL (0.000-0.034)
[2018-10-13 04:17] LABS: INR 0.9 (<1.2); Partial Thromboplastin Time 23.1 sec (22.0-30.0); Prothrombin Time 9.7 sec (9.0-12.0)
--- NOTE | 2018-10-13 04:18 | XR ---
EXAMINATION TYPE: XR chest 1V portable DATE OF EXAM: 10/13/2018 COMPARISON: 09/26/2018 HISTORY: Pain TECHNIQUE: Single frontal view of the chest is obtained. FINDINGS: There is slight elevated right diaphragm. There is no heart failure. Lungs are clear of co nsolidation. There are chest leads. IMPRESSION: No active cardiopulmonary disease. No change.
--- NOTE | 2018-10-13 04:21 | CT ---
EXAMINATION TYPE: CT brain cspine wo con DATE OF EXAM: 10/13/2018 COMPARISON: 09/26/[address] scan HISTORY: AMS neck pain CT DLP: 1465.70 mGycm Automated exposure control for dose reduction was used. TECHNIQUE: CT scan of the head and cervical spine are performed without contrast. FINDINGS: There is cerebral cortical atrophy. There is no mass effect nor midline shift. There is n o sign of intracranial hemorrhage. There is some white matter hypodensity in the left posterior front al lobe consistent with old lacunar infarct. There is dense calcification of the anterior cerebral fa lx. Calvarium is intact. Cervical vertebra have fairly normal alignment and spacing for the patient's age. Posterior elements are intact. Skull base is intact. Exam is limited slightly by motion. There is no evidence of a fract ure. IMPRESSION: Cerebral atrophy and mild hydrocephalus. 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 No change. Minor degenerative changes in the cervical spine. No fracture.
[2018-10-13 04:48] LABS: Appearance,Urine Clear (Clear); Bilirubin,Urine Negative (Negative); Blood,Urine Negative (Negative); Color,Urine Light Yellow; Glucose,Urine (UA) Negative (Negative); Ketones,Urine Negative (Negative); Leukocyte Esterase,Urine Negative (Negative); Nitrite,Urine Negative (Negative); Protein,Urine Negative (Negative); Specific Gravity,Urine 1.003 (1.001-1.035); Urobilinogen,Urine <2.0 mg/dL (<2.0)
[2018-10-13 05:23] VITALS: BP 104/73; PULSE 89; RESP 18; TEMP 98
== END 2018-10-13 05:25 | disposition home or self-care (01) ==
LOC: EC 02:45 → SUPCPDRO 02:45 → EC 05:25
DX: F03.90 Unspecified dementia, unspecified severity, without behavioral disturbance, psychotic disturbance, mood disturbance, and anxiety (principal); R45.1 Restlessness and agitation; E11.9 Type 2 diabetes mellitus without complications; K21.9 Gastro-esophageal reflux disease without esophagitis; I10 Essential (primary) hypertension; Z79.4 Long term (current) use of insulin; Z79.82 Long term (current) use of aspirin; Z79.899 Other long term (current) drug therapy; Z88.8 Allergy status to other drugs, medicaments and biological substances; Z85.46 Personal history of malignant neoplasm of prostate
CPT/HCPCS: 36415; 70450; 71045; 72125; 80053; 81003; 82550; 82553; 83735; 84484; 85025; 85610; 85730; 93005; 96360; 99285

== ENCOUNTER 2018-10-13 20:22 | Observation (INO) | payer MEDICARE, BC ==
[2018-10-13] MEDS ORDERED: SODIUM CHLORIDE 0.9% 1,000 ML IV STA (20:36)
--- NOTE | 2018-10-13 20:41 | ED ---
Fall HPI - General Source: patient, EMS, RN notes reviewed, old records reviewed Mode of arrival: EMS - History of Present Illness MD Complaint: fall <Len Grant - Last Filed: 10/13/18 21:28> <Neville Horne - Last Filed: 10/14/18 00:22> - General Chief Complaint: Fall Stated Complaint: Fall Time Seen by Provider: 10/13/18 20:30 - History of Present Illness Initial Comments: This is a 78-year-old male with a history of dementia alcohol abuse diabetes reflux prostatism who was just worked up last night for fall and increase agitation and combativeness and was discharged and is back tonight after an unwitnessed fall. He was brought in by EMS he does have a history dementia and per paramedics his baseline mental status is about the same as usual. There is some question whether his left pupil was sluggish. Patient himself is a poor historian he states he did fall but is not sure. He did have an abrasion behind his right ear was noted upon arrival. No focal deficits reported. No known exposure to alcohol or drugs. No other modifying factors at this time. Of note the patient recently was treated for alcohol withdrawal and DTs approximately 10 days ago. (Len Grant) - Related Data Home Medications Medication Instructions Recorded Confirmed DULoxetine HCL [Cymbalta] 60 mg PO BID 07/16/14 10/13/18 Atorvastatin [Lipitor] 10 mg PO HS@199905/15/16 10/13/18 Folic Acid 1 mg PO DAILY 05/15/16 10/13/18 Imipramine [Tofranil] 10 mg PO TID@0700,1300,1900 05/15/16 10/13/18 Repaglinide [Prandin] 0.5 mg PO DAILY 05/15/16 10/13/18 Aspirin [Adult Low Dose Aspirin EC] 81 mg PO HS 09/25/18 10/13/18 Cholecalciferol [Vitamin D3] 2,000 unit PO HS 09/25/18 10/13/18 Insulin Glargine,Hum.rec.anlog 10 units SQ DAILY 09/25/18 10/13/18 [Soy Fowler] Metoprolol Tartrate 25 mg PO BID 09/25/18 10/13/18 Pantoprazole Sodium 40 mg PO DAILY 09/25/18 10/13/18 Potassium Chloride [Klor-Con 10] 10 meq PO BID 09/25/18 10/13/18 Thiamine [Vitamin B-1] 100 mg PO DAILY 09/25/18 10/13/18 buPROPion HCL [Wellbutrin XL] 150 mg PO DAILY 09/25/18 10/13/18 Acetaminophen Tab [Tylenol Tab] 650 mg PO Q4H PRN 10/13/18 10/13/18 Melatonin 3 mg PO HS@2000 10/13/18 10/13/18 Nicotine 21Mg/24Hr Patch [Habitrol] 1 patch TRANSDERM DAILY 10/13/18 10/13/18 amLODIPine BESYLATE [Norvasc] 2.5 mg PO BID 10/13/18 10/13/18 Previous Rx's Medication Instructions Recorded LORazepam [Ativan] 1 mg PO Q8HR PRN tab 10/01/18 Allergies Allergy/AdvReac Type Severity Reaction Status Date / Time zolpidem tartrate AdvReac Hallucinati Verified 10/13/18 20:38 [From Sarah] ons Review of Systems ROS Other: All systems not noted in ROS Statement are negative. Limitations: ROS unobtainable due to patients medical condition <Len Grant - Last Filed: 10/13/18 21:28> ROS Other: All systems not noted in ROS Statement are negative. <Neville Horne - Last Filed: 10/14/18 00:22> ROS Statement: Those systems with pertinent positive or pertinent negative responses have been documented in the HPI. Past Medical History Past Medical History: Cancer, Dementia, Diabetes Mellitus, GERD/Reflux, Hypertension, Memory Impairment, Pneumonia, Prostate Disorder Additional Past Medical History / Comment(s): Prostate cancer. 2015 bleeding ulcer. migraines, uses walker when up. past fall 3 months ago, pne vaccine- advertising writer unable to verify date at time of admit,dr hernandez closed.please verify in am. History of Any Multi-Drug Resistant Organisms: None Reported Past Surgical History: Cholecystectomy, Orthopedic Surgery, Prostate Surgery Additional Past Surgical History / Comment(s): knee left, right leg, back. prostate removed.lt elbow Past Anesthesia/Blood Transfusion Reactions: No Reported Reaction Past Psychological History: Depression Past Alcohol Use History: Daily, None Reported - Past Family History Father Additional Family Medical History / Comment(s): ulcers Mother History Unknown: Yes Additional Family Medical History / Comment(s): migraines Brother(s) Family Medical History: Cancer Additional Family Medical History / Comment(s): patient unsure what type of cancer <Len Grant - Last Filed: 10/13/18 21:28> General Exam Limitations: no limitations General appearance: alert, anxious Head exam: Present: normocephalic, other (Abrasion seen behind the right ear no step-off or crepitation no foreign body no active bleeding.) Eye exam: Present: EOMI, other (The left pupil is very slightly larger appearance than the right one but they are equally reactive.). Absent: scleral icterus, conjunctival injection, nystagmus, periorbital swelling, periorbital tenderness ENT exam: Present: mucous membranes dry Neck exam: Present: normal inspection, full ROM. Absent: tenderness, meningismus, lymphadenopathy Respiratory exam: Present: normal lung sounds bilaterally. Absent: respiratory distress, wheezes, rales, rhonchi, stridor Cardiovascular Exam: Present: regular rate, normal rhythm, normal heart sounds. Absent: systolic murmur, diastolic murmur, rubs, gallop, clicks GI/Abdominal exam: Present: soft, normal bowel sounds. Absent: distended, tenderness, guarding, rebound, rigid Rectal exam: Present: deferred Extremities exam: Present: normal inspection, full ROM, normal capillary refill. Absent: tenderness, pedal edema, joint swelling, calf tenderness Back exam: Present: normal inspection, full ROM. Absent: tenderness, CVA tenderness (R), CVA tenderness (L) Neurological exam: Present: alert, altered, CN II-XII intact. Absent: motor sensory deficit Psychiatric exam: Present: flat affect, other (He is demonstrating some flight of ideas and does demonstrate evidence of psychosis.) Skin exam: Present: warm, dry, normal color <Len Grant - Last Filed: 10/13/18 21:28> <Neville Horne - Last Filed: 10/14/18 00:22> - General Exam Comments Initial Comments: This is a well-developed well-nourished awake pleasant male who this time is cooperating with evaluation does demonstrate some flight of ideas and some anxiety and some psychotic type behavior (Len Grant) Course <Len Grant - Last Filed: 10/13/18 21:28> <Neville Horne - Last Filed: 10/14/18 00:22> Vital Signs 10/13/18 20:25 Pulse Rate 67 Respiratory 20 Rate Blood Pressure 111/61 O2 Sat by Pulse 95 Oximetry - Reevaluation(s) Reevaluation #1: 10/13/18 21:31 Patient's case will be endorsed to Dr. Horne who will make the final disposition. I did discuss case with the patient's son. (Len Grant) Medical Decision Making - Lab Data Result diagrams: 10/13/18 20:48 <Len Grant - Last Filed: 10/13/18 21:28> - Lab Data Result diagrams: 10/13/18 20:48 10/13/18 20:48 <Neville Horne - Last Filed: 10/14/18 00:22> - Medical Decision Making Receive this patient as a sign out to review his studies, and then complete the admission orders to have the patient's further evaluated for work appears to be acute delirium. The studies have returned and we do not find a definite cause the patient's delirium. Be admitted for further evaluation and consultations. ( Neville Horne) - Lab Data Lab Results 10/13/18 10/13/18 10/13/18 Range/Units 20:48 20:48 20:48 WBC (3.8-10.6) k/uL RBC (4.30-5.90) m/uL Hgb (13.0-17.5) gm/dL Hct (39.0-53.0) % MCV (80.0-100.0) fL MCH (25.0-35.0) pg MCHC (31.0-37.0) g/dL RDW (11.5-15.5) % Plt Count (150-450) k/uL Neutrophils % % Lymphocytes % % Monocytes % % Eosinophils % % Basophils % % Neutrophils # (1.3-7.7) k/uL Lymphocytes # (1.0-4.8) k/uL Monocytes # (0-1.0) k/uL Eosinophils # (0-0.7) k/uL Basophils # (0-0.2) k/uL Sodium 140 (137-145) mmol/L Potassium 4.3 (3.5-5.1) mmol/L Chloride 111 H (98-107) mmol/L Carbon Dioxide 23 (22-30) mmol/L Anion Gap 6 mmol/L BUN 17 (9-20) mg/dL Creatinine 1.33 H (0.66-1.25) mg/dL Est GFR (CKD-EPI)AfAm 59 (>60 ml/min/1.73 sqM) Est GFR (CKD-EPI)NonAf 51 (>60 ml/min/1.73 sqM) Glucose 115 H (74-99) mg/dL Calcium 8.7 (8.4-10.2) mg/dL Magnesium 1.8 (1.6-2.3) mg/dL Total Bilirubin 0.5 (0.2-1.3) mg/dL AST 15 L (17-59) U/L ALT 37 (21-72) U/L Alkaline Phosphatase 53 (38-126) U/L Ammonia <9 (<30) umol/L Total Creatine Kinase 63 (55-170) U/L CK-MB (CK-2) 2.3 (0.0-2.4) ng/mL CK-MB (CK-2) Rel Index 3.7 Troponin I <0.012 (0.000-0.034) ng/mL Total Protein 5.2 L (6.3-8.2) g/dL Albumin 2.9 L (3.5-5.0) g/dL Amylase 42 (30-110) U/L Serum Alcohol <10 mg/dL 10/13/ Range/Units 20:48 WBC 8.5 (3.8-10.6) k/uL RBC 3.29 L (4.30-5.90) m/uL Hgb 10.8 L (13.0-17.5) gm/dL Hct 33.2 L (39.0-53.0) % MCV 100.7 H (80.0-100.0) fL MCH 32.7 (25.0-35.0) pg MCHC 32.5 (31.0-37.0) g/dL RDW 12.3 (11.5-15.5) % Plt Count 201 (150-450) k/uL Neutrophils % 69 % Lymphocytes % 19 % Monocytes % 7 % Eosinophils % 2 % Basophils % 0 % Neutrophils # 5.9 (1.3-7.7) k/uL Lymphocytes # 1.6 (1.0-4.8) k/uL Monocytes # 0.6 (0-1.0) k/uL Eosinophils # 0.2 (0-0.7) k/uL Basophils # 0.0 (0-0.2) k/uL Sodium (137-145) mmol/L Potassium (3.5-5.1) mmol/L Chloride (98-107) mmol/L Carbon Dioxide (22-30) mmol/L Anion Gap mmol/L BUN (9-20) mg/dL Creatinine (0.66-1.25) mg/dL Est GFR (CKD-EPI)AfAm (>60 ml/min/1.73 sqM) Est GFR (CKD-EPI)NonAf (>60 ml/min/1.73 sqM) Glucose (74-99) mg/dL Calcium (8.4-10.2) mg/dL Magnesium (1.6-2.3) mg/dL Total Bilirubin (0.2-1.3) mg/dL AST (17-59) U/L ALT (21-72) U/L Alkaline Phosphatase (38-126) U/L Ammonia (<30) umol/L Total Creatine Kinase (55-170) U/L CK-MB (CK-2) (0.0-2.4) ng/mL CK-MB (CK-2) Rel Index Troponin I (0.000-0.034) ng/mL Total Protein (6.3-8.2) g/dL Albumin (3.5-5.0) g/dL Amylase (30-110) U/L Serum Alcohol mg/dL Disposition <Len Grant - Last Filed: 10/13/18 21:28> <Neville Horne - Last Filed: 10/14/18 00:22> Clinical Impression: Acute delirium Disposition: ADMITTED IP TO THIS HOSP Condition: Poor Referrals: Emigdio Mccollum MD [Primary Care Provider] - 1-2 days
[2018-10-13 21:22] LABS: Basophils % (A) 0 %; Eosinophils # (A) 0.2 k/uL (0-0.7); Eosinophils % (A) 2 %; HCT 33.2 % (39.0-53.0); HGB 10.8 gm/dL (13.0-17.5); Lymphocytes # (A) 1.6 k/uL (1.0-4.8); Lymphocytes % (A) 19 %; MCH 32.7 pg (25.0-35.0); MCHC 32.5 g/dL (31.0-37.0); MCV 100.7 fL (80.0-100.0); Mean Platelet Volume 6.2; Monocytes # (A) 0.6 k/uL (0-1.0); Monocytes % (A) 7 %; Neutrophils # (A) 5.9 k/uL (1.3-7.7); Neutrophils % (A) 69 %; Platelet Count 201 k/uL (150-450); RBC 3.29 m/uL (4.30-5.90); RDW 12.3 % (11.5-15.5); WBC 8.5 k/uL (3.8-10.6)
[2018-10-13 21:34] LABS: Creatine Kinase 63 U/L (55-170)
[2018-10-13 21:38] LABS: ALT 37 U/L (21-72); AST 15 U/L (17-59); Albumin 2.9 g/dL (3.5-5.0); Alcohol <10 mg/dL; Alkaline Phosphatase 53 U/L (38-126); Amylase 42 U/L (30-110); Anion Gap 6 mmol/L; Blood Urea Nitrogen 17 mg/dL (9-20); Calcium 8.7 mg/dL (8.4-10.2); Carbon Dioxide 23 mmol/L (22-30); Chloride 111 mmol/L (98-107); Glucose 115 mg/dL (74-99); Magnesium 1.8 mg/dL (1.6-2.3); Potassium 4.3 mmol/L (3.5-5.1); Sodium 140 mmol/L (137-145); Total Bilirubin 0.5 mg/dL (0.2-1.3); Total Protein 5.2 g/dL (6.3-8.2)
[2018-10-13 21:47] LABS: Creatine Kinase MB 2.3 ng/mL (0.0-2.4); Troponin I <0.012 ng/mL (0.000-0.034)
--- NOTE | 2018-10-13 21:57 | CT ---
EXAMINATION TYPE: CT brain wo con DATE OF EXAM: 10/13/2018 HISTORY: Altered mental status. Fall today. CT DLP: 1275.4 mGycm. Automated Exposure Control for Dose Reduction was Utilized. TECHNIQUE: CT scan of the head is performed without contrast. COMPARISON: CT brain earlier today and older studies. FINDINGS: There is no acute intracranial hemorrhage or midline shift identified. There is diffuse v entricular and sulcal prominence consistent with diffuse age-related cerebral atrophy. Ventricular s ize is stable and somewhat prominent. There is low-attenuation in the periventricular white matter co nsistent with chronic small vessel ischemic change most prominent over the high left frontal lobe axi al image 42 is redemonstrated. Ossification along the anterior interhemispheric fissure is redemonstr ated. Suspect osteoma or ossified meningioma high right frontal region axial image 47 unchanged from prior studies. Scleral calcification both globes is redemonstrated. Visualized paranasal sinuses ar e clear. IMPRESSION: No acute intracranial hemorrhage or midline shift. There is moderate diffuse age-relate d cerebral atrophy and chronic small vessel ischemic change redemonstrated. No significant change fr om prior studies.
[2018-10-14] MEDS ORDERED: MIRTAZAPINE 15 MG TAB PO STA (00:08)
[2018-10-14] MEDS ORDERED: NALOXONE 0.4 MG/ML 1 ML VIAL IV PRN (00:17)
[2018-10-14] MEDS ORDERED: ACETAMINOPHEN TAB 325 MG TAB PO PRN (00:17)
[2018-10-14] MEDS ORDERED: LORazepam 1 MG TAB PO PRN (00:19)
[2018-10-14] MEDS ORDERED: THIAMINE 100 MG/ML 2 ML VIAL IVP SCH (00:30)
[2018-10-14] MEDS ORDERED: LORazepam 2 MG/ML INJ IV STA ×2 (01:04→01:53)
[2018-10-14] MEDS: SODIUM CHLORIDE 0.9% 1,000 ML IV SCH ×2 (03:35→22:54)
[2018-10-14] MEDS: POTASSIUM CHLORIDE ER 10 MEQ TAB.ER.PRT PO SCH ×2 (07:50→22:46)
[2018-10-14] MEDS: HEPARIN SODIUM,PORCINE 5,000 UNIT/ML 1 ML VIAL SQ SCH ×2 (07:50→22:47)
[2018-10-14] MEDS: NICOTINE 21MG/24HR PATCH TRANSDERM SCH (07:51)
[2018-10-14] MEDS: PANTOPRAZOLE 40 MG TABLET PO SCH (07:51)
[2018-10-14] MEDS: amLODIPine 2.5 MG TAB PO SCH ×2 (07:51→22:47)
[2018-10-14] MEDS: METOPROLOL TARTRATE 25 MG TAB PO SCH ×2 (07:51→22:47)
[2018-10-14] MEDS: REPAGLINIDE 1 MG TAB PO SCH (07:52)
[2018-10-14] MEDS: IMIPRAMINE 10 MG TAB PO SCH ×3 (07:52→18:10)
[2018-10-14 08:02] LABS: Glucose,Whole Blood 93 mg/dL (75-99)
[2018-10-14] MEDS: THIAMINE 500 MG in SODIUM CHLORIDE 0.9% 100 ML IVPB SCH ×2 (09:12→22:47)
[2018-10-14] MEDS: INSULIN DETEMIR 100 UNIT/ML 10 ML VIAL SQ SCH (09:54)
[2018-10-14 11:58] LABS: Glucose,Whole Blood 95 mg/dL (75-99)
[2018-10-14] MEDS: FOLIC ACID 1 MG TAB PO SCH (12:52)
[2018-10-14] MEDS ORDERED: risperiDONE ODT 1 MG TAB PO PRN (13:24)
--- NOTE | 2018-10-14 13:27 | P.CN ---
Psychiatric Consult - . Consult date: 10/14/18 Consult:: Altered mental status 10/14/18 09:47 Assessment and Plan Assessment: Reason for consult: Altered mental status HPI: This is a 78-year-old male with a history of dementia alcohol abuse diabetes reflux prostatism who was just worked up last night for fall and increase agitation and combativeness and was discharged and is back tonight after an unwitnessed fall. He was brought in by EMS he does have a history dementia and per paramedics his baseline mental status is about the same as usual. There is some question whether his left pupil was sluggish. Patient himself is a poor historian he states he did fall but is not sure. He did have an abrasion behind his right ear was noted upon arrival. No focal deficits reported. No known exposure to alcohol or drugs. No other modifying factors at this time. Of note the patient recently was treated for alcohol withdrawal and DTs approximately 10 days ago. - Related Data Home Medications Medication Instructions Recorded Confirmed DULoxetine HCL [Cymbalta] 60 mg PO BID 07/16/14 10/13/18 Atorvastatin [Lipitor] 10 mg PO HS@199905/15/16 10/13/18 Folic Acid 1 mg PO DAILY 05/15/16 10/13/18 Imipramine [Tofranil] 10 mg PO TID@0700,1300,1900 05/15/16 10/13/18 Repaglinide [Prandin] 0.5 mg PO DAILY 05/15/16 10/13/18 Aspirin [Adult Low Dose Aspirin EC] 81 mg PO HS 09/25/18 10/13/18 Cholecalciferol [Vitamin D3] 2,000 unit PO HS 09/25/18 10/13/18 Insulin Glargine,Hum.rec.anlog 10 units SQ DAILY 09/25/18 10/13/18 [Soy Solmarge] Metoprolol Tartrate 25 mg PO BID 09/25/18 10/13/18 Pantoprazole Sodium 40 mg PO DAILY 09/25/18 10/13/18 Potassium Chloride [Klor-Con 10] 10 meq PO BID 09/25/18 10/13/18 Thiamine [Vitamin B-1] 100 mg PO DAILY 09/25/18 10/13/18 buPROPion HCL [Wellbutrin XL] 150 mg PO DAILY 09/25/18 10/13/18 Acetaminophen Tab [Tylenol Tab] 650 mg PO Q4H PRN 10/13/18 10/13/18 Melatonin 3 mg PO HS@199910/13/18 10/13/18 Nicotine 21Mg/24Hr Patch [Habitrol] 1 patch TRANSDERM DAILY 10/13/18 10/13/18 amLODIPine BESYLATE [Norvasc] 2.5 mg PO BID 10/13/18 10/13/18 Previous Rx's Medication Instructions Recorded LORazepam [Ativan] 1 mg PO Q8HR PRN tab 10/01/18 Allergies Allergy/AdvReac Type Severity Reaction Status Date / Time zolpidem tartrate AdvReac Hallucinati Verified 10/13/18 20:38 [From Ambien] ons Past Medical History Past Medical History: Cancer, Dementia, Diabetes Mellitus, GERD/Reflux, Hypertension, Memory Impairment, Pneumonia, Prostate Disorder Additional Past Medical History / Comment(s): Prostate cancer. 2014 bleeding ulcer. migraines, uses walker when up. 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 History of Any Multi-Drug Resistant Organisms: None Reported Past Surgical History: Cholecystectomy, Orthopedic Surgery, Prostate Surgery Additional Past Surgical History / Comment(s): knee left, right leg, back. prostate removed.lt elbow Past Anesthesia/Blood Transfusion Reactions: No Reported Reaction Past Psychological History: Depression Past Alcohol Use History: Daily, None Reported - Past Family History Father Additional Family Medical History / Comment(s): ulcers Mother History Unknown: Yes Additional Family Medical History / Comment(s): migraines Brother(s) Family Medical History: Cancer Additional Family Medical History / Comment(s): patient unsure what type of cancer Mental Status Examination - General Appearance: [disheveled, bizarre, appears older than stated age Speech/Language: [ slurred, rambled, mumbling, hesitant, halting, expressive, soft, confabulation] Attitude/Behavior: [ irritable, withdrawn] Mood: [euphoric, anxious, irritable, angry Affect: [ labile Orientation: [Not time, person, not place situation] Thought Content: [ delusions caring for Stuart] Risk Factors: [He denies suicidal (ideations, plan), and/or Homicidal (ideations , plan), other] Perception: [wnl, he denies hallucinations (auditory, visual, tactile), other] Thought Processes: [ concrete, circumstantial, tangential, other] Concentration/Attention Span: [impaired] [Per observation and interview with the patient] Recent Memory: [ impaired] [ Remote Memory: [ impaired] [past events, as related history] Intelligence: [below average] [based on history, based on vocabulary, syntax, grammar, and content] Judgement: [ poor] [per patient's behavior/history of present illness] Insight: [poor] [understanding severity of illness/history of present illness] Psychiatric impressions: 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 Stomach comment to get cholinergic psychosis from tricyclic antidepressants. Use of Wellbutrin and Cymbalta seem appropriate. Also put on when necessary medicine of Risperdal M tab 1 mg twice a day as needed. The M tab dissolves on the timing is some issue put it in the patient's mouth. Thank you for the consult Max Mast D.O. PhD (1) Acute delirium Current Visit: Yes Status: Acute Code(s): R41.0 - DISORIENTATION, UNSPECIFIED SNOMED Code(s): 8694069 Time with Patient: Less than 30
[2018-10-14 17:19] LABS: Glucose,Whole Blood 64 mg/dL (75-99)
[2018-10-14 17:55] LABS: Glucose,Whole Blood 85 mg/dL (75-99)
[2018-10-14 19:11] LABS: Appearance,Urine Clear (Clear); Bilirubin,Urine Negative (Negative); Blood,Urine Negative (Negative); Color,Urine Light Yellow; Glucose,Urine (UA) Negative (Negative); Ketones,Urine Trace (Negative); Leukocyte Esterase,Urine Negative (Negative); Nitrite,Urine Negative (Negative); PH, Urine 6.5 (5.0-8.0); Protein,Urine Negative (Negative); Specific Gravity,Urine 1.009 (1.001-1.035); Urobilinogen,Urine <2.0 mg/dL (<2.0)
[2018-10-14] MEDS ORDERED: ATORVASTATIN 10 MG TAB PO SCH (20:00)
[2018-10-14] MEDS ORDERED: MELATONIN 3 MG TABLET PO SCH (20:00)
[2018-10-14 20:03] LABS: Glucose,Whole Blood 186 mg/dL (75-99)
[2018-10-14] MEDS ORDERED: risperiDONE 1 MG TAB PO SCH (21:00)
[2018-10-14] MEDS ORDERED: ASPIRIN 81 MG PO SCH (21:00)
[2018-10-14] MEDS ORDERED: CHOLECALCIFEROL 1,000 UNIT TAB PO SCH (21:00)
[2018-10-15 07:14] LABS: Glucose,Whole Blood 70 mg/dL (75-99)
[2018-10-15 07:31] LABS: Glucose,Whole Blood 69 mg/dL (75-99)
[2018-10-15 07:50] LABS: Glucose,Whole Blood 86 mg/dL (75-99)
[2018-10-15] MEDS: METOPROLOL TARTRATE 25 MG TAB PO SCH (08:28)
[2018-10-15] MEDS: NICOTINE 21MG/24HR PATCH TRANSDERM SCH (08:28)
[2018-10-15] MEDS: amLODIPine 2.5 MG TAB PO SCH (08:28)
[2018-10-15] MEDS: POTASSIUM CHLORIDE ER 10 MEQ TAB.ER.PRT PO SCH (08:28)
[2018-10-15] MEDS: PANTOPRAZOLE 40 MG TABLET PO SCH (08:28)
[2018-10-15] MEDS: IMIPRAMINE 10 MG TAB PO SCH ×2 (08:29→12:06)
[2018-10-15] MEDS: HEPARIN SODIUM,PORCINE 5,000 UNIT/ML 1 ML VIAL SQ SCH (08:29)
[2018-10-15] MEDS: REPAGLINIDE 1 MG TAB PO SCH (08:29)
[2018-10-15] MEDS: INSULIN DETEMIR 100 UNIT/ML 10 ML VIAL SQ SCH (08:29)
[2018-10-15] MEDS: THIAMINE 500 MG in SODIUM CHLORIDE 0.9% 100 ML IVPB SCH (08:30)
[2018-10-15] MEDS ORDERED: risperiDONE 0.25 MG TAB PO SCH (09:00)
--- NOTE | 2018-10-15 09:08 | CONS ---
CONSULTATION DATE OF CONSULTATION: 10/14/2018 CHIEF COMPLAINT: Altered mental status. HISTORY OF PRESENT ILLNESS: Mr. Engel is a pleasant 78-year-old, male, who is being evaluated today on 10/14/2018 by the Neurology Service per the request of Dr. Chemo Garcia for altered mental status. The patient does have a history of Alzheimer's dementia and is currently not on any prescribed medication for his dementia. He was brought into [facility] emergency room for increased agitation and combativeness along with a recent fall. The patient denies any head injuries with the fall, but he was found to have suffered abrasion behind his right ear on the emergency room. The patient does have a history of alcohol abuse as well. In the emergency room, a CT scan of the brain was done, which showed generalized atrophy and small-vessel ischemic changes. No acute abnormalities were seen. His CBC showed anemia with a hemoglobin of 10.8 and hematocrit of 33%. His comprehensive metabolic profile showed elevated creatinine at 1.33 and reduced protein and albumin at 5.2 and 2.9 respectively. His cardiac enzymes were negative. His serum alcohol level was less than 10. At the time of my evaluation, he is lying in his bed and appears to be in no acute distress. He is disoriented but according to the nursing staff, this is his baseline. PAST MEDICAL HISTORY: Alzheimer's dementia, dyslipidemia, diabetes, gastroesophageal reflux disease, hypertension, prostate cancer, migraine headaches, history of cholecystectomy, orthopedic surgery, prostate surgery/resection, history of depression. SOCIAL HISTORY: The patient does have a history of alcohol abuse. He denies any tobacco or drug use. FAMILY HISTORY: Positive for migraines and cancer. HOME MEDICATIONS: Reviewed in the chart. ALLERGIES: AMBIEN. REVIEW OF SYSTEM: As mentioned above and otherwise negative. PHYSICAL EXAM: Vital signs show a temperature of 97.4, pulse 74, respiration 20, blood pressure 129/76. GENERAL APPEARANCE: The patient is a well-developed, elderly male, who appears to be in no acute distress. HEENT: Normocephalic, atraumatic, no facial asymmetry is seen. NECK: Supple with no masses felt. CARDIOVASCULAR: Regular rate and rhythm. ABDOMEN: Nontender, nondistended. EXTREMITIES: Showed no edema or clubbing. NEUROLOGICAL EXAM: The patient is awake and oriented to person only. He thought it was the year 2002 and thought he was at a alf. Speech and language are normal. No lateralizing weakness is seen. Sensory exam showed normal light touch sensation in all 4 extremities. No tremors or seizure-like activity is seen. No facial asymmetry is noticed on cranial nerve testing. IMPRESSION: 1. Altered mental status. 2. Acute on top of chronic encephalopathy, likely metabolic. 3. Small vessel ischemic disease. 4. History of Alzheimer's dementia. 5. Dehydration. 6. Renal insufficiency. RECOMMENDATION: The patient's altered mental status is likely due to metabolic encephalopathy given his renal insufficiency. He has been started on IV hydration and his symptoms appear to be improved. Continue on the . His CT scan of the brain revealed no acute abnormalities. An EEG has been ordered. Continue neuro checks. I will continue to follow with you. Further recommendations to follow. Thank you, Dr. Garcia, for allowing me to participate in the care of your patient. If you have any questions, please feel free to contact me. MMDWAYNEL / IJN: [id number] /
--- NOTE | 2018-10-15 11:37 | P.HPIM ---
History of Present Illness H&P Date: 10/15/18 Chief Complaint: possible fall Document serves as H&P and discharge summary 78-year-old male with a past medical history significant for dementia , alcohol abuse, who was brought to the ER via EMS after sustaining was thought to be a fall while he was at subacute rehab. No apparent injury was noted. The patient was receiving Ativan at [facility] which Dr. Garcia stated make him confusion and agitation worse. This has since been discontinued. He was admitted to the hospital for observation. He was evaluated by psychiatry and was started on Risperdal. He was also evaluated by neurology. CT of the brain was negative for an acute process. REVIEW OF SYSTEMS: Unable to obtain due to mental status PHYSICAL EXAM: GENERAL: This is a 78-year-old male in no apparent distress at the time of examination. Pleasant and cooperative. HEENT: Head is atraumatic, normocephalic. Pupils are equal, round, and reactive to light. Sclerae anicteric. Conjunctivae are clear. Mucus membranes of the mouth are moist. Neck is supple. RESPIRATORY: Clear to auscultation. No wheezes, rales, or rhonchi. No use of accessory muscles. Patient maintaining oxygen saturation greater than 92%. CARDIOVASCULAR: Regular rate and rhythm. S1 and S2 noted. No systolic or diastolic murmur auscultated. No JVD noted. No S3 or S4 noted. GASTROINTESTINAL: No distention noted. Abdomen soft and round. Normal active bowel sounds auscultated x 4 quadrants. INTEGUMENTARY: abrasion to left deleon. No cyanosis. No jaundice. No rashes noted. No cellulitis noted. EXTREMITIES: 2+ peripheral pulses. No evidence of peripheral edema. No calf tenderness noted. NEUROLOGIC: Cranial nerves II-XII grossly intact. PSYCHIATRIC: Awake and alert. Confused. Oriented to self. ASSESSMENT: Acute on chronic metabolic encephalopathy, likely secondary to years of ETOH abuse and RAQUEL History of dementia Acute kidney injury, secondary to dehydration Fall, with no injury Hypertension Diabetes Mellitus, type II PLAN: Patients daughter, Brenda, has secured a bed at [facility]. Patients daughter will transport patient to [facility]. He is stable for discharge to [facility] today. Nurse practitioner note has been reviewed by physician. Signing provider agrees with the documented findings, assessment, and plan of care. Past Medical History Past Medical History: Cancer, Dementia, Diabetes Mellitus, GERD/Reflux, Hypertension, Memory Impairment, Pneumonia, Prostate Disorder Additional Past Medical History / Comment(s): Prostate cancer. 2015 bleeding ulcer. migraines, uses walker when up. past fall x2 within 2days History of Any Multi-Drug Resistant Organisms: None Reported Past Surgical History: Cholecystectomy, Orthopedic Surgery, Prostate Surgery Additional Past Surgical History / Comment(s): knee left, right leg, back. prostate removed.lt elbow Past Anesthesia/Blood Transfusion Reactions: No Reported Reaction Past Psychological History: Depression Additional Psychological History / Comment(s): pt resides [facility] Smoking Status: Former smoker Past Alcohol Use History: Daily, None Reported Additional Past Alcohol Use History / Comment(s): pt started smoking at age 12 smokes 1ppd. drinks 1 pint of whiskey a day. last drink approximately 10/01/18 Past Drug Use History: None Reported - Past Family History Father Additional Family Medical History / Comment(s): ulcers Mother History Unknown: Yes Additional Family Medical History / Comment(s): migraines Brother(s) Family Medical History: Cancer Additional Family Medical History / Comment(s): unknown cancer history type Medications and Allergies Home Medications Medication Instructions Recorded Confirmed Type DULoxetine HCL [Cymbalta] 60 mg PO BID 07/16/14 10/13/18 History Atorvastatin [Lipitor] 10 mg PO HS@199905/15/16 10/13/18 History Folic Acid 1 mg PO DAILY 05/15/16 10/13/18 History Imipramine [Tofranil] 10 mg PO TID@0700,1300,1900 05/15/16 10/13/18 History Repaglinide [Prandin] 0.5 mg PO DAILY 05/15/16 10/13/18 History Aspirin [Adult Low Dose Aspirin EC] 81 mg PO HS 09/25/18 10/13/18 History Cholecalciferol [Vitamin D3] 2,000 unit PO HS 09/25/18 10/13/18 History Insulin Glargine,Hum.rec.anlog 10 units SQ DAILY 09/25/18 10/13/18 History [Toucatarino Solostar] Metoprolol Tartrate 25 mg PO BID 09/25/18 10/13/18 History Pantoprazole Sodium 40 mg PO DAILY 09/25/18 10/13/18 History Potassium Chloride [Klor-Con 10] 10 meq PO BID 09/25/18 10/13/18 History Thiamine [Vitamin B-1] 100 mg PO DAILY 09/25/18 10/13/18 History buPROPion HCL [Wellbutrin XL] 150 mg PO DAILY 09/25/18 10/13/18 History Acetaminophen Tab [Tylenol] 650 mg PO Q4H PRN 10/13/18 10/13/18 History Melatonin 3 mg PO HS@2000 10/13/18 10/13/18 History Nicotine 21Mg/24Hr Patch [Habitrol] 1 patch TRANSDERM DAILY 10/13/18 10/13/18 History amLODIPine BESYLATE [Norvasc] 2.5 mg PO BID 10/13/18 10/13/18 History risperiDONE [RisperDAL] 0.25 mg PO DAILY #30 tablet 10/15/18 Rx risperiDONE [RisperDAL] 1 mg PO BID PRN #60 tablet 10/15/18 Rx risperiDONE [RisperDAL] 1 mg PO HS #30 tablet 10/15/18 Rx Allergies Allergy/AdvReac Type Severity Reaction Status Date / Time zolpidem tartrate AdvReac Hallucinati Verified 10/13/18 20:38 [From Sarah] ons Physical Exam Vitals: Vital Signs Temp Pulse Resp BP Pulse Ox 10/15/18 08:00 70 18 10/15/18 05:00 98.1 F 70 18 153/68 96 10/14/18 21:00 98 F 76 18 120/67 98 10/14/18 16:00 68 18 10/14/18 13:29 98.1 F 70 18 139/76 95 Intake and Output 10/14/18 10/15/18 10/15/18 22:59 06:59 14:59 Intake Total 730 200 480 Output Total 350 Balance 380 200 480 Intake: Intake, IV Titration 200 Amount Sodium Chloride 0.9% 1, 100 000 ml @ 20 mls/hr IV . Q24H YARITZA Rx#:[id number] Thiamine 500 mg In Sodium 100 Chloride 0.9% 100 ml @ 200 mls/hr IVPB Q12HR YARITZA Rx#:[id number] Oral 730 480 Output: Urine 350 Other: Voiding Method Diaper Bedside Commode Bedside Commode Diaper Diaper Incontinent Incontinent # Voids 2 3 Results CBC & Chem 7: 10/13/18 20:48 10/13/18 20:48 Labs: Abnormal Lab Results - Last 24 Hours (Table) 10/14/18 10/14/18 10/14/18 Range/Units 17:18 18:40 20:01 POC Glucose (mg/dL) 64 L 186 H (75-99) mg/dL Urine Ketones Trace H (Negative) 10/15/18 10/15/18 Range/Units 07:12 07:30 POC Glucose (mg/dL) 70 L 69 L (75-99) mg/dL Urine Ketones (Negative) Thrombosis Risk Factor Assmnt - Choose All That Apply Any of the Below Risk Factors Present?: Yes Each Factor Represents 1 point: Obesity (BMI >25) Other Risk Factors: Yes Each Risk Factor Represents 2 Points: Patient confined to bed Each Risk Factor Represents 3 Points: Age 75 years or older Other congenital or acquired thrombophilia - If yes, enter type in comment: No Thrombosis Risk Factor Assessment Total Risk Factor Score: 6 Thrombosis Risk Factor Assessment Level: High Risk
[2018-10-15 11:39] LABS: Glucose,Whole Blood 90 mg/dL (75-99)
[2018-10-15 11:52] VITALS: BP 143/73; PULSE 76; RESP 17; TEMP 97.4
[2018-10-15] MEDS: FOLIC ACID 1 MG TAB PO SCH (12:06)
[2018-10-16] MEDS ORDERED: THIAMINE 100 MG TAB PO SCH (09:00)
== END 2018-10-15 14:10 | disposition home or self-care (01) ==
LOC: EC 20:22 → 3NMEDONC 10-14 00:17
PROVIDERS: ADMIT Family Medicine; ATTEND Family Medicine
DX: G93.41 Metabolic encephalopathy (principal); N17.9 Acute kidney failure, unspecified; F10.10 Alcohol abuse, uncomplicated; E11.9 Type 2 diabetes mellitus without complications; E86.0 Dehydration; I10 Essential (primary) hypertension; R41.3 Other amnesia; K21.9 Gastro-esophageal reflux disease without esophagitis; G43.909 Migraine, unspecified, not intractable, without status migrainosus; F32.9 Major depressive disorder, single episode, unspecified; F09 Unspecified mental disorder due to known physiological condition; I73.9 Peripheral vascular disease, unspecified; D64.9 Anemia, unspecified; G30.9 Alzheimer's disease, unspecified; E78.5 Hyperlipidemia, unspecified; Z79.899 Other long term (current) drug therapy; Z79.82 Long term (current) use of aspirin; Z79.4 Long term (current) use of insulin; Z79.84 Long term (current) use of oral hypoglycemic drugs; Z88.8 Allergy status to other drugs, medicaments and biological substances; Z87.01 Personal history of pneumonia (recurrent); Z85.46 Personal history of malignant neoplasm of prostate; Z87.11 Personal history of peptic ulcer disease; Z90.49 Acquired absence of other specified parts of digestive tract; Z80.8 Family history of malignant neoplasm of other organs or systems; Z91.81 History of falling; F02.80 Dementia in other diseases classified elsewhere, unspecified severity, without behavioral disturbance, psychotic disturbance, mood disturbance, and anxiety; Z87.891 Personal history of nicotine dependence; E66.9 Obesity, unspecified; Z68.26 Body mass index [BMI] 26.0-26.9, adult; Z74.01 Bed confinement status; N40.0 Benign prostatic hyperplasia without lower urinary tract symptoms; W19.XXXA Unspecified fall, initial encounter; Y92.099 Unspecified place in other non-institutional residence as the place of occurrence of the external cause
CPT/HCPCS: 36415; 70450; 80053; 80320; 81003; 82140; 82150; 82550; 82553; 83735; 84484; 85025; 96361; 96365; 96366; 96372; 96375; 96376; 99285

== ENCOUNTER 2018-10-18 14:23 | Emergency (ER) | payer MEDICARE, BC ==
[2018-10-18 14:34] VITALS: RESP 20
--- NOTE | 2018-10-18 15:21 | ED ---
General Adult HPI - General Chief complaint: Psychiatric Symptoms Stated complaint: Mental Health Source: EMS Mode of arrival: EMS Limitations: no limitations - History of Present Illness Initial comments: Dictation was produced using [employer] dictation software. please excuse any grammatical, word or spelling errors. Chief Complaint: 78-year-old male past medical history of cancer, dementia, hypertension, pneumonia presents with aggressive behavior. History of Present Illness: She is 78-year-old male presents to emergency Department from a [facility] with increased agitation and medication noncompliance. Patient has been exhibiting aggressive behavior over the last several loads. It's been acutely worsening. Patient has a*Risperdal after being placed in the hospital for aggressive behavior. There was plans to have his Risperdal dose increased. Patient is extremely aggressive behavior and if seasonal. Multiple medical problems and is not taking his medications. Patient is completely by daughter who reports this. Patient denies any issues currently. The ROS documented in this emergency department record has been reviewed and confirmed by me. Those systems with pertinent positive or negative responses have been documented in the HPI. All other systems are other negative and/or noncontributory. - Related Data Home Medications Medication Instructions Recorded Confirmed DULoxetine HCL [Cymbalta] 60 mg PO BID 07/16/14 10/18/18 Atorvastatin [Lipitor] 10 mg PO HS 05/15/16 10/18/18 Folic Acid 1 mg PO DAILY 05/15/16 10/18/18 Imipramine [Tofranil] 10 mg PO TID 05/15/16 10/18/18 Repaglinide [Prandin] 0.5 mg PO DAILY 05/15/16 10/18/18 Aspirin [Adult Low Dose Aspirin EC] 81 mg PO HS 09/25/18 10/18/18 Cholecalciferol [Vitamin D3] 2,000 unit PO HS 09/25/18 10/18/18 Insulin Glargine,Hum.rec.anlog 10 units SQ HS 09/25/18 10/18/18 [Soy Fowler] Metoprolol Tartrate 25 mg PO BID 09/25/18 10/18/18 Pantoprazole Sodium 40 mg PO DAILY 09/25/18 10/18/18 Potassium Chloride [Klor-Con 10] 10 meq PO BID 09/25/18 10/18/18 Thiamine [Vitamin B-1] 100 mg PO DAILY 09/25/18 10/18/18 buPROPion HCL [Wellbutrin XL] 150 mg PO DAILY 09/25/18 10/18/18 Melatonin 3 mg PO HS@199910/13/18 10/18/18 Nicotine 21Mg/24Hr Patch [Habitrol] 1 patch TRANSDERM DAILY 10/13/18 10/18/18 amLODIPine BESYLATE [Norvasc] 2.5 mg PO BID 10/13/18 10/18/18 Previous Rx's Medication Instructions Recorded risperiDONE [RisperDAL] 0.25 mg PO DAILY #30 tablet 10/15/18 risperiDONE [RisperDAL] 1 mg PO BID PRN #60 tablet 10/15/18 risperiDONE [RisperDAL] 1 mg PO HS #30 tablet 10/15/18 Allergies Allergy/AdvReac Type Severity Reaction Status Date / Time zolpidem tartrate AdvReac Hallucinati Verified 10/18/18 14:42 [From Sarah] ons Review of Systems ROS Statement: Those systems with pertinent positive or pertinent negative responses have been documented in the HPI. ROS Other: All systems not noted in ROS Statement are negative. Past Medical History Past Medical History: Cancer, Dementia, Diabetes Mellitus, GERD/Reflux, Hypertension, Memory Impairment, Pneumonia, Prostate Disorder Additional Past Medical History / Comment(s): Prostate cancer. 2015 bleeding ulcer. migraines, uses walker when up. past fall x2 within 2days History of Any Multi-Drug Resistant Organisms: None Reported Past Surgical History: Cholecystectomy, Orthopedic Surgery, Prostate Surgery Additional Past Surgical History / Comment(s): knee left, right leg, back. prostate removed.lt elbow Past Anesthesia/Blood Transfusion Reactions: No Reported Reaction Past Psychological History: Depression Smoking Status: Former smoker Past Alcohol Use History: Daily, None Reported Past Drug Use History: None Reported - Past Family History Father Additional Family Medical History / Comment(s): ulcers Mother History Unknown: Yes Additional Family Medical History / Comment(s): migraines Brother(s) Family Medical History: Cancer Additional Family Medical History / Comment(s): unknown cancer history type General Exam - General Exam Comments Initial Comments: PHYSICAL EXAM: General Impression: Alert and oriented x3, not in acute distress HEENT: Normocephalic atraumatic, extra-ocular movements intact, pupils equal and reactive to light bilaterally, mucous membranes moist. Cardiovascular: Heart regular rate and rhythm, S1&S2 audible, no murmurs, rubs or gallops Chest: Lungs clear to auscultation bilaterally, no rhonchi, no wheeze, no rales Abdomen: Bowel sounds present, abdomen soft, non-tender, non-distended, no organomegaly Musculoskeletal: Pulses present and equal in all extremities, no peripheral edema Motor: Power 5/5 bilaterally, no focal deficits noted Neurological: CN II-XII grossly intact, no focal motor or sensory deficits noted Skin: Intact with no visualized rashes Limitations: no limitations Course Vital Signs 10/18/18 14:25 Temperature 97 F L Pulse Rate 96 Respiratory 20 Rate Blood Pressure 130/72 O2 Sat by Pulse 99 Oximetry Medical Decision Making - Medical Decision Making ED course: 78 y old male presents from a [facility] for aggressive behavior. Upon arrival are within acceptable limits. Physical examination is benign. Patient cleared for EPS evaluation. EPS evaluated patient. They're [facility] They do recommend that patient have Risperdal increased. Risperdal prescription was called in by patient's primary care physician. Daughter and patient are understandable agreeable to plan. This point patient clear for discharge. - Lab Data Result diagrams: 10/18/18 15:49 10/18/18 15:49 Lab Results 10/18/18 10/18/18 Range/Units 15:49 15:49 WBC 2.9 L (3.8-10.6) k/uL RBC 4.04 L (4.30-5.90) m/uL Hgb 13.4 (13.0-17.5) gm/dL Hct 40.7 (39.0-53.0) % MCV 100.7 H (80.0-100.0) fL MCH 33.2 (25.0-35.0) pg MCHC 33.0 (31.0-37.0) g/dL RDW 12.2 (11.5-15.5) % Plt Count 188 (150-450) k/uL Neutrophils % 55 % Lymphocytes % 26 % Monocytes % 10 % Eosinophils % 4 % Basophils % 0 % Neutrophils # 1.6 (1.3-7.7) k/uL Lymphocytes # 0.8 L (1.0-4.8) k/uL Monocytes # 0.3 (0-1.0) k/uL Eosinophils # 0.1 (0-0.7) k/uL Basophils # 0.0 (0-0.2) k/uL Sodium 143 (137-145) mmol/L Potassium 4.5 (3.5-5.1) mmol/L Chloride 113 H (98-107) mmol/L Carbon Dioxide 22 (22-30) mmol/L Anion Gap 8 mmol/L BUN 30 H (9-20) mg/dL Creatinine 1.60 H (0.66-1.25) mg/dL Est GFR (CKD-EPI)AfAm 47 (>60 ml/min/1.73 sqM) Est GFR (CKD-EPI)NonAf 41 (>60 ml/min/1.73 sqM) Glucose 148 H (74-99) mg/dL Calcium 8.4 (8.4-10.2) mg/dL Disposition Clinical Impression: Aggressive behavior Disposition: HOME SELF-CARE Is patient prescribed a controlled substance at d/c from ED?: No Referrals: Chemo Garcia DO [Primary Care Provider] - 1-2 days Time of Disposition: 18:10
[2018-10-18 16:23] LABS: Basophils % (A) 0 %; Eosinophils # (A) 0.1 k/uL (0-0.7); Eosinophils % (A) 4 %; HCT 40.7 % (39.0-53.0); HGB 13.4 gm/dL (13.0-17.5); Lymphocytes # (A) 0.8 k/uL (1.0-4.8); Lymphocytes % (A) 26 %; MCH 33.2 pg (25.0-35.0); MCV 100.7 fL (80.0-100.0); Mean Platelet Volume 6.6; Monocytes # (A) 0.3 k/uL (0-1.0); Monocytes % (A) 10 %; Neutrophils # (A) 1.6 k/uL (1.3-7.7); Neutrophils % (A) 55 %; Platelet Count 188 k/uL (150-450); RBC 4.04 m/uL (4.30-5.90); RDW 12.2 % (11.5-15.5); WBC 2.9 k/uL (3.8-10.6)
[2018-10-18 16:26] LABS: Calcium 8.4 mg/dL (8.4-10.2); Potassium 4.5 mmol/L (3.5-5.1)
[2018-10-18 18:27] VITALS: BP 128/74; PULSE 88; TEMP 97.8
== END 2018-10-18 18:57 | disposition home or self-care (01) ==
LOC: EC 14:23
DX: R45.6 Violent behavior (principal); R45.1 Restlessness and agitation; F03.90 Unspecified dementia, unspecified severity, without behavioral disturbance, psychotic disturbance, mood disturbance, and anxiety; E11.9 Type 2 diabetes mellitus without complications; K21.9 Gastro-esophageal reflux disease without esophagitis; I10 Essential (primary) hypertension; N42.9 Disorder of prostate, unspecified; F32.9 Major depressive disorder, single episode, unspecified; Z87.891 Personal history of nicotine dependence; Z85.46 Personal history of malignant neoplasm of prostate; Z79.4 Long term (current) use of insulin; Z79.82 Long term (current) use of aspirin; Z79.899 Other long term (current) drug therapy; Z88.8 Allergy status to other drugs, medicaments and biological substances
CPT/HCPCS: 36415; 80048; 85025; 99285

== ENCOUNTER 2018-10-19 11:33 | Emergency (ER) | payer MEDICARE, BC ==
--- NOTE | 2018-10-19 12:08 | ED ---
General Adult HPI <Eren Lopez - Last Filed: 10/19/18 20:45> - General Source: patient, family, police, EMS, RN notes reviewed, old records reviewed Mode of arrival: EMS Limitations: no limitations <Len Neal - Last Filed: 10/20/18 10:21> - General Chief complaint: Psychiatric Symptoms Stated complaint: mental health, petitioned Time Seen by Provider: 10/19/18 11:54 - History of Present Illness Initial comments: 78-year-old male presents for mental health evaluation. This is the patient's third visit this week. Patient has history dementia, previous history of alcohol abuse. He was aggressive with increased both physical and verbal outbursts at the facility where he resides. He is being petitioned by his family member for threatening comments including homicidal comments. I did receive some the history from shows soft cervical was on scene. Patient has no complaints. He is alert and oriented 2. Patient is delusional at the time my evaluation. (Len Neal) - Related Data Home Medications Medication Instructions Recorded Confirmed DULoxetine HCL [Cymbalta] 60 mg PO BID 07/16/14 10/19/18 Atorvastatin [Lipitor] 10 mg PO HS 05/15/16 10/19/18 Folic Acid 1 mg PO DAILY@1400 05/15/16 10/19/18 Imipramine [Tofranil] 10 mg PO TID 05/15/16 10/19/18 Repaglinide [Prandin] 0.5 mg PO DAILY 05/15/16 10/19/18 Aspirin [Adult Low Dose Aspirin EC] 81 mg PO HS 09/25/18 10/19/18 Cholecalciferol [Vitamin D3] 2,000 unit PO HS 09/25/18 10/19/18 Insulin Glargine,Hum.rec.anlog 10 units SQ HS 09/25/18 10/19/18 [Soy Fowler] Metoprolol Tartrate 25 mg PO BID 09/25/18 10/19/18 Pantoprazole Sodium 40 mg PO DAILY 09/25/18 10/19/18 Potassium Chloride [Klor-Con 10] 10 meq PO BID 09/25/18 10/19/18 Thiamine [Vitamin B-1] 100 mg PO DAILY 09/25/18 10/19/18 buPROPion HCL [Wellbutrin XL] 150 mg PO DAILY@1400 09/25/18 10/19/18 Melatonin 3 mg PO HS@2000 10/13/18 10/19/18 Nicotine 21Mg/24Hr Patch [Habitrol] 1 patch TRANSDERM DAILY 10/13/18 10/19/18 amLODIPine [Norvasc] 2.5 mg PO BID 10/19/18 10/19/18 risperiDONE [RisperDAL] 1 mg PO TID PRN 10/19/18 10/19/18 Previous Rx's Medication Instructions Recorded risperiDONE [RisperDAL] 0.25 mg PO DAILY #30 tablet 10/15/18 risperiDONE [RisperDAL] 1 mg PO HS #30 tablet 10/15/18 Allergies Allergy/AdvReac Type Severity Reaction Status Date / Time zolpidem tartrate AdvReac Hallucinati Verified 10/19/18 12:02 [From Sarah] ons Review of Systems ROS Other: All systems not noted in ROS Statement are negative. <Eren Lopez - Last Filed: 10/19/18 20:45> ROS Other: All systems not noted in ROS Statement are negative. <eLn Neal - Last Filed: 10/20/18 10:21> ROS Statement: Those systems with pertinent positive or pertinent negative responses have been documented in the HPI. Past Medical History Past Medical History: Cancer, Dementia, Diabetes Mellitus, GERD/Reflux, Hypertension, Memory Impairment, Pneumonia, Prostate Disorder Additional Past Medical History / Comment(s): Prostate cancer. 2015 bleeding ulcer. migraines, uses walker when up. past fall x2 within 2days History of Any Multi-Drug Resistant Organisms: None Reported Past Surgical History: Cholecystectomy, Orthopedic Surgery, Prostate Surgery Additional Past Surgical History / Comment(s): knee left, right leg, back. prostate removed.lt elbow Past Anesthesia/Blood Transfusion Reactions: No Reported Reaction Past Psychological History: Depression Smoking Status: Former smoker Past Alcohol Use History: Daily, None Reported Past Drug Use History: None Reported - Past Family History Father Additional Family Medical History / Comment(s): ulcers Mother History Unknown: Yes Additional Family Medical History / Comment(s): migraines Brother(s) Family Medical History: Cancer Additional Family Medical History / Comment(s): unknown cancer history type <Len Neal - Last Filed: 10/20/18 10:21> General Exam Limitations: no limitations General appearance: alert, in no apparent distress Head exam: Present: atraumatic, normocephalic Eye exam: Present: normal appearance, PERRL ENT exam: Present: normal exam Neck exam: Present: normal inspection. Absent: tenderness, meningismus Respiratory exam: Present: normal lung sounds bilaterally. Absent: respiratory distress, wheezes Cardiovascular Exam: Present: regular rate, normal rhythm GI/Abdominal exam: Present: soft. Absent: distended, tenderness, guarding Extremities exam: Present: normal inspection, normal capillary refill. Absent: pedal edema Back exam: Present: normal inspection Neurological exam: Present: alert, oriented X3, CN II-XII intact. Absent: motor sensory deficit Psychiatric exam: Present: agitated. Absent: suicidal ideation Skin exam: Present: warm, dry, intact. Absent: cyanosis, diaphoretic <Len Neal - Last Filed: 10/20/18 10:21> Course <Eren Lopez - Last Filed: 10/19/18 20:45> <Len Neal - Last Filed: 10/20/18 10:21> Vital Signs 10/19/18 10/19/18 10/20/18 11:43 16:56 02:55 Temperature 97.0 F L 97.3 F L Pulse Rate 74 78 72 Respiratory 22 18 18 Rate Blood Pressure 119/79 148/88 140/78 O2 Sat by Pulse 99 94 L 97 Oximetry - Reevaluation(s) Reevaluation #1: 10/19/18 1700 Patient's care is signed out to Dr. Lopez awaiting final EPS disposition. ( Len Neal) Medical Decision Making - Lab Data Result diagrams: 10/19/18 15:08 10/19/18 15:08 <Eren Lopez - Last Filed: 10/19/18 20:45> - Lab Data Result diagrams: 10/19/18 15:08 10/19/18 15:08 <Len Neal - Last Filed: 10/20/18 10:21> - Medical Decision Making Dr. Hackett will be taking over the care of this patient at 9 PM (Eren Lopez) Patient medically cleared, evaluated by EPS, will be transferred for further psychiatric evaluation and treatment. Transfer to [facility] (Len Neal) - Lab Data Lab Results 10/19/18 10/19/18 10/19/18 Range/Units 15:08 15:08 15:45 WBC 3.8 (3.8-10.6) k/uL RBC 3.50 L (4.30-5.90) m/uL Hgb 11.5 L (13.0-17.5) gm/dL Hct 35.6 L (39.0-53.0) % MCV 101.8 H (80.0-100.0) fL MCH 33.0 (25.0-35.0) pg MCHC 32.4 (31.0-37.0) g/dL RDW 12.1 (11.5-15.5) % Plt Count 216 (150-450) k/uL Neutrophils % 52 % Lymphocytes % 31 % Monocytes % 9 % Eosinophils % 4 % Basophils % 0 % Neutrophils # 2.0 (1.3-7.7) k/uL Lymphocytes # 1.2 (1.0-4.8) k/uL Monocytes # 0.3 (0-1.0) k/uL Eosinophils # 0.2 (0-0.7) k/uL Basophils # 0.0 (0-0.2) k/uL Sodium 141 (137-145) mmol/L Potassium 4.0 (3.5-5.1) mmol/L Chloride 111 H (98-107) mmol/L Carbon Dioxide 23 (22-30) mmol/L Anion Gap 7 mmol/L BUN 21 H (9-20) mg/dL Creatinine 1.31 H (0.66-1.25) mg/dL Est GFR (CKD-EPI)AfAm 60 (>60 ml/min/1.73 sqM) Est GFR (CKD-EPI)NonAf 52 (>60 ml/min/1.73 sqM) Glucose 156 H (74-99) mg/dL Calcium 8.6 (8.4-10.2) mg/dL Total Bilirubin 0.4 (0.2-1.3) mg/dL AST 14 L (17-59) U/L ALT 29 (21-72) U/L Alkaline Phosphatase 60 (38-126) U/L Total Protein 5.5 L (6.3-8.2) g/dL Albumin 3.0 L (3.5-5.0) g/dL Urine Color Yellow Urine Appearance Clear (Clear) Urine pH 5.0 (5.0-8.0) Ur Specific Temperance 1.018 (1.001-1.035) Urine Protein Negative (Negative) Urine Glucose (UA) Negative (Negative) Urine Ketones Negative (Negative) Urine Blood Negative (Negative) Urine Nitrite Negative (Negative) Urine Bilirubin Negative (Negative) Urine Urobilinogen 2.0 (<2.0) mg/dL Ur Leukocyte Esterase Negative (Negative) Urine Opiates Screen (NotDetected) Ur Oxycodone Screen (NotDetected) Urine Methadone Screen (NotDetected) Ur Propoxyphene Screen (NotDetected) Ur Barbiturates Screen (NotDetected) U Tricyclic Antidepress (NotDetected) Ur Phencyclidine Scrn (NotDetected) Ur Amphetamines Screen (NotDetected) U Methamphetamines Scrn (NotDetected) U Benzodiazepines Scrn (NotDetected) Urine Cocaine Screen (NotDetected) U Marijuana (THC) Screen (NotDetected) 10/19/18 Range/Units 15:45 WBC (3.8-10.6) k/uL RBC (4.30-5.90) m/uL Hgb (13.0-17.5) gm/dL Hct (39.0-53.0) % MCV (80.0-100.0) fL MCH (25.0-35.0) pg MCHC (31.0-37.0) g/dL RDW (11.5-15.5) % Plt Count (150-450) k/uL Neutrophils % % Lymphocytes % % Monocytes % % Eosinophils % % Basophils % % Neutrophils # (1.3-7.7) k/uL Lymphocytes # (1.0-4.8) k/uL Monocytes # (0-1.0) k/uL Eosinophils # (0-0.7) k/uL Basophils # (0-0.2) k/uL Sodium (137-145) mmol/L Potassium (3.5-5.1) mmol/L Chloride (98-107) mmol/L Carbon Dioxide (22-30) mmol/L Anion Gap mmol/L BUN (9-20) mg/dL Creatinine (0.66-1.25) mg/dL Est GFR (CKD-EPI)AfAm (>60 ml/min/1.73 sqM) Est GFR (CKD-EPI)NonAf (>60 ml/min/1.73 sqM) Glucose (74-99) mg/dL Calcium (8.4-10.2) mg/dL Total Bilirubin (0.2-1.3) mg/dL AST (17-59) U/L ALT (21-72) U/L Alkaline Phosphatase (38-126) U/L Total Protein (6.3-8.2) g/dL Albumin (3.5-5.0) g/dL Urine Color Urine Appearance (Clear) Urine pH (5.0-8.0) Ur Specific Temperance (1.001-1.035) Urine Protein (Negative) Urine Glucose (UA) (Negative) Urine Ketones (Negative) Urine Blood (Negative) Urine Nitrite (Negative) Urine Bilirubin (Negative) Urine Urobilinogen (<2.0) mg/dL Ur Leukocyte Esterase (Negative) Urine Opiates Screen Not Detected (NotDetected) Ur Oxycodone Screen Not Detected (NotDetected) Urine Methadone Screen Not Detected (NotDetected) Ur Propoxyphene Screen Not Detected (NotDetected) Ur Barbiturates Screen Not Detected (NotDetected) U Tricyclic Antidepress Detected H (NotDetected) Ur Phencyclidine Scrn Not Detected (NotDetected) Ur Amphetamines Screen Not Detected (NotDetected) U Methamphetamines Scrn Not Detected (NotDetected) U Benzodiazepines Scrn Detected H (NotDetected) Urine Cocaine Screen Not Detected (NotDetected) U Marijuana (THC) Screen Not Detected (NotDetected) Disposition <Eren Lopez - Last Filed: 10/19/18 20:45> - Out of Hospital Transfer - Req. Specs Out of Hospital Transfer - Requested Specifics: Psychiatric Non-ICU (Transfer to [facility]) <Len Neal - Last Filed: 10/20/18 10:21> Clinical Impression: Dementia, Aggressive behavior Disposition: OTHER INSTITUTION NOT DEFINED Condition: Stable Referrals: Chemo Garcia DO [Primary Care Provider] - 1-2 days
[2018-10-19 15:24] LABS: Basophils % (A) 0 %; Eosinophils # (A) 0.2 k/uL (0-0.7); Eosinophils % (A) 4 %; HCT 35.6 % (39.0-53.0); HGB 11.5 gm/dL (13.0-17.5); Lymphocytes # (A) 1.2 k/uL (1.0-4.8); Lymphocytes % (A) 31 %; MCHC 32.4 g/dL (31.0-37.0); MCV 101.8 fL (80.0-100.0); Mean Platelet Volume 6.5; Monocytes # (A) 0.3 k/uL (0-1.0); Monocytes % (A) 9 %; Neutrophils % (A) 52 %; Platelet Count 216 k/uL (150-450); RDW 12.1 % (11.5-15.5); WBC 3.8 k/uL (3.8-10.6)
[2018-10-19 15:33] LABS: Calcium 8.6 mg/dL (8.4-10.2); Total Bilirubin 0.4 mg/dL (0.2-1.3); Total Protein 5.5 g/dL (6.3-8.2)
[2018-10-19 16:57] VITALS: RESP 18
[2018-10-19 17:30] LABS: Appearance,Urine Clear (Clear); Bilirubin,Urine Negative (Negative); Blood,Urine Negative (Negative); Color,Urine Yellow; Glucose,Urine (UA) Negative (Negative); Ketones,Urine Negative (Negative); Leukocyte Esterase,Urine Negative (Negative); Nitrite,Urine Negative (Negative); Protein,Urine Negative (Negative); Specific Gravity,Urine 1.018 (1.001-1.035)
[2018-10-19] MEDS ORDERED: LORazepam 2 MG/ML INJ IM STA (18:28)
[2018-10-19] MEDS ORDERED: ZIPRASIDONE 20 MG VIAL IM STA (20:45)
[2018-10-20 02:57] VITALS: BP 140/78; PULSE 72; TEMP 97.3
[2018-10-20 03:02] LABS: Amphetamine Screen,Urine Not Detected (NotDetected); Barbiturate Screen,Urine Not Detected (NotDetected); Benzodiazepines Screen,Urine Detected (NotDetected); Cocaine Screen,Urine Not Detected (NotDetected); Methadone Screen, Urine Not Detected (NotDetected); Opiate Screen,Urine Not Detected (NotDetected); Oxycodone Screen, Urine Not Detected (NotDetected); Phencyclidine Screen,Urine Not Detected (NotDetected); Tricyclic Antidepressant,Urine Detected (NotDetected); Urn Cannabinoid Scrn Not Detected (NotDetected)
== END 2018-10-20 09:38 | disposition other institution (70) ==
LOC: EC 11:33
DX: F03.91 Unspecified dementia, unspecified severity, with behavioral disturbance (principal); R45.6 Violent behavior; F32.9 Major depressive disorder, single episode, unspecified; E11.9 Type 2 diabetes mellitus without complications; K21.9 Gastro-esophageal reflux disease without esophagitis; I10 Essential (primary) hypertension; Z79.82 Long term (current) use of aspirin; Z79.4 Long term (current) use of insulin; Z79.899 Other long term (current) drug therapy; Z88.8 Allergy status to other drugs, medicaments and biological substances; Z87.891 Personal history of nicotine dependence; Z85.46 Personal history of malignant neoplasm of prostate
CPT/HCPCS: 82075; 36415; 80053; 85025; 81003; 80306; 99285; 96372 ×2; J2060; J3486

== ENCOUNTER 2018-11-21 16:23 | Inpatient (IN) | payer MEDICARE, BC ==
[2018-11-21] MEDS ORDERED: IBUPROFEN 600 MG TAB PO STA (17:20)
[2018-11-21] MEDS ORDERED: ACETAMINOPHEN TAB 500 MG TAB PO STA (17:20)
--- NOTE | 2018-11-21 17:24 | ED ---
General Adult HPI - General Chief complaint: Shortness of Breath Stated complaint: pneumonia Time Seen by Provider: 11/21/18 17:05 Source: EMS, RN notes reviewed, Caregiver Mode of arrival: EMS Limitations: altered mental status, physical limitation - History of Present Illness Initial comments: Patient is a pleasantly demented 78-year-old male presenting to emergency Department concerns for difficulty in breathing. Patient did see his primary care physician several days ago and was diagnosed with pneumonia. Patient has had increased dyspnea. Patient has had fevers. Patient denies any pain. Patient does admit to feeling fatigued. Patient has had cough, nonproductive. - Related Data Home Medications Medication Instructions Recorded Confirmed Atorvastatin [Lipitor] 10 mg PO HS@199905/15/16 11/21/18 Folic Acid 1 mg PO DAILY@1400 05/15/16 11/21/18 Imipramine [Tofranil] 10 mg PO TID@0800,1400,199905/15/16 11/21/18 Aspirin [Adult Low Dose Aspirin EC] 81 mg PO HS@199909/25/18 11/21/18 Cholecalciferol [Vitamin D3] 2,000 unit PO HS@199909/25/18 11/21/18 Metoprolol Tartrate 25 mg PO BID@0800,199909/25/18 11/21/18 Pantoprazole Sodium 40 mg PO DAILY@0800 09/25/18 11/21/18 Melatonin 3 mg PO HS@199910/13/18 11/21/18 Acetaminophen [Tylenol] 650 mg PO Q4H PRN 11/21/18 11/21/18 Amoxic-Pot Clav 875-125Mg 1 tab PO BID@0800,1600 11/21/18 11/21/18 [Augmentin 875-125] Azithromycin [Zithromax Z-pack] See Taper PO DIRECTED 11/21/18 11/21/18 Insulin Glargine [Lantus] 10 unit SQ HS@199911/21/18 11/21/18 Oseltamivir [Tamiflu] 75 mg PO DAILY@199911/21/18 11/21/18 risperiDONE 0.5 mg PO TID 11/21/18 11/21/18 traZODone HCL 50 mg PO HS@199911/21/18 11/21/18 Allergies Allergy/AdvReac Type Severity Reaction Status Date / Time zolpidem tartrate AdvReac Hallucinati Verified 11/21/18 17:13 [From Maxxien] ons Review of Systems ROS Statement: Those systems with pertinent positive or pertinent negative responses have been documented in the HPI. ROS Other: All systems not noted in ROS Statement are negative. Constitutional: Reports: fever Eyes: Denies: eye pain ENT: Denies: throat pain Respiratory: Reports: cough, dyspnea Cardiovascular: Denies: chest pain Endocrine: Reports: fatigue Gastrointestinal: Denies: abdominal pain Genitourinary: Denies: dysuria Musculoskeletal: Denies: back pain Skin: Denies: rash Neurological: Denies: headache Past Medical History Past Medical History: Cancer, Dementia, Diabetes Mellitus, GERD/Reflux, Hypertension, Memory Impairment, Pneumonia, Prostate Disorder Additional Past Medical History / Comment(s): Prostate cancer. 2015 bleeding ulcer. migraines, uses walker when up. past fall x2 within 2days History of Any Multi-Drug Resistant Organisms: None Reported Past Surgical History: Cholecystectomy, Orthopedic Surgery, Prostate Surgery Additional Past Surgical History / Comment(s): knee left, right leg, back. prostate removed.lt elbow Past Anesthesia/Blood Transfusion Reactions: No Reported Reaction Past Psychological History: Depression Smoking Status: Former smoker Past Alcohol Use History: Daily, None Reported Past Drug Use History: None Reported - Past Family History Father Additional Family Medical History / Comment(s): ulcers Mother History Unknown: Yes Additional Family Medical History / Comment(s): migraines Brother(s) Family Medical History: Cancer Additional Family Medical History / Comment(s): unknown cancer history type General Exam Limitations: physical limitation General appearance: alert Head exam: Present: atraumatic Eye exam: Present: normal appearance, PERRL ENT exam: Present: normal oropharynx Neck exam: Present: normal inspection Respiratory exam: Present: respiratory distress, rales, decreased breath sounds Cardiovascular Exam: Present: tachycardia GI/Abdominal exam: Present: soft. Absent: tenderness Extremities exam: Present: normal inspection. Absent: pedal edema, calf tenderness Back exam: Present: normal inspection Neurological exam: Present: alert Psychiatric exam: Present: normal affect, normal mood Skin exam: Present: normal color. Absent: rash Course Vital Signs 11/21/18 11/21/18 16:25 18:00 Temperature 98.5 F Pulse Rate 113 H 110 H Respiratory 24 20 Rate Blood Pressure 109/60 123/77 O2 Sat by Pulse 93 L 97 Oximetry - Reevaluation(s) Reevaluation #1: 11/21/18 19:37 Patient does meet criteria for septic shock diagnosed in 1920. Blood culture and lactic acid and IV antibiotics and fluid bolus of all been ordered. EKG Findings - EKG Comments: EKG Findings:: Sinus tachycardia 125. ID 154. QRS 72. QT 294. QTC 424. Normal axis. Low QRS voltage. No acute ST change. Procedures - Sepsis Sepsis Focused Exam #1 Time Sepsis Criteria Met: 19:20 Sepsis Focused Exam Date: 11/21/18 Sepsis Focused Exam Time: 19:40 Sepsis Focused Exam Complete: Yes Vital Signs & RN Notes Reviewed: Yes Capillary Refill: < 2 Seconds: Fingers, Toes Peripheral Pulses: Normal: Radial (R), Radial (L) Skin Color: Normal for Patient Respiratory Exam: rhonchi Cardiovascular Exam: tachycardia Medical Decision Making - Medical Decision Making patient reevaluated and significantly improved. Blood pressure is stable at this time. Patient and family are updated on results and concern regarding serious illness. Case was discussed in detail with Dr. Garcia, who will admit his patient. He does request ICU. Case was also discussed in detail with Dr. Moore, who will consult. - Lab Data Result diagrams: 11/21/18 16:42 11/21/18 16:42 Lab Results 11/21/18 11/21/18 11/21/18 Range/Units 16:42 16:42 16:42 WBC 19.2 H (3.8-10.6) k/uL RBC 3.69 L (4.30-5.90) m/uL Hgb 11.7 L (13.0-17.5) gm/dL Hct 35.3 L (39.0-53.0) % MCV 95.6 D (80.0-100.0) fL MCH 31.7 (25.0-35.0) pg MCHC 33.2 (31.0-37.0) g/dL RDW 12.5 (11.5-15.5) % Plt Count 201 (150-450) k/uL Neutrophils % 92 % Lymphocytes % 4 % Monocytes % 3 % Eosinophils % 1 % Basophils % 0 % Neutrophils # 17.6 H (1.3-7.7) k/uL Lymphocytes # 0.8 L (1.0-4.8) k/uL Monocytes # 0.5 (0-1.0) k/uL Eosinophils # 0.1 (0-0.7) k/uL Basophils # 0.0 (0-0.2) k/uL PT (9.0-12.0) sec INR (<1.2) APTT (22.0-30.0) sec Sodium 130 L (137-145) mmol/L Potassium 4.4 (3.5-5.1) mmol/L Chloride 96 L (98-107) mmol/L Carbon Dioxide 19 L (22-30) mmol/L Anion Gap 15 mmol/L BUN 30 H (9-20) mg/dL Creatinine 2.05 H (0.66-1.25) mg/dL Est GFR (CKD-EPI)AfAm 35 (>60 ml/min/1.73 sqM) Est GFR (CKD-EPI)NonAf 30 (>60 ml/min/1.73 sqM) Glucose 378 H (74-99) mg/dL Plasma Lactic Acid Gene 6.0 H* (0.7-2.0) mmol/L Calcium 8.2 L (8.4-10.2) mg/dL Total Bilirubin 1.1 (0.2-1.3) mg/dL AST 35 (17-59) U/L ALT 30 (21-72) U/L Alkaline Phosphatase 85 (38-126) U/L Total Protein 5.8 L (6.3-8.2) g/dL Albumin 3.0 L (3.5-5.0) g/dL Influenza Type A RNA (Not Detectd) Influenza Type B (PCR) (Not Detectd) 11/21/18 11/21/18 Range/Units 16:42 17:51 WBC (3.8-10.6) k/uL RBC (4.30-5.90) m/uL Hgb (13.0-17.5) gm/dL Hct (39.0-53.0) % MCV (80.0-100.0) fL MCH (25.0-35.0) pg MCHC (31.0-37.0) g/dL RDW (11.5-15.5) % Plt Count (150-450) k/uL Neutrophils % % Lymphocytes % % Monocytes % % Eosinophils % % Basophils % % Neutrophils # (1.3-7.7) k/uL Lymphocytes # (1.0-4.8) k/uL Monocytes # (0-1.0) k/uL Eosinophils # (0-0.7) k/uL Basophils # (0-0.2) k/uL PT 11.0 (9.0-12.0) sec INR 1.0 (<1.2) APTT 23.5 (22.0-30.0) sec Sodium (137-145) mmol/L Potassium (3.5-5.1) mmol/L Chloride (98-107) mmol/L Carbon Dioxide (22-30) mmol/L Anion Gap mmol/L BUN (9-20) mg/dL Creatinine (0.66-1.25) mg/dL Est GFR (CKD-EPI)AfAm (>60 ml/min/1.73 sqM) Est GFR (CKD-EPI)NonAf (>60 ml/min/1.73 sqM) Glucose (74-99) mg/dL Plasma Lactic Acid Gene (0.7-2.0) mmol/L Calcium (8.4-10.2) mg/dL Total Bilirubin (0.2-1.3) mg/dL AST (17-59) U/L ALT (21-72) U/L Alkaline Phosphatase (38-126) U/L Total Protein (6.3-8.2) g/dL Albumin (3.5-5.0) g/dL Influenza Type A RNA Not Detected (Not Detectd) Influenza Type B (PCR) Not Detected (Not Detectd) Critical Care Time Critical Care Time: Yes Total Critical Care Time: 35 Disposition Clinical Impression: Bronchopneumonia, Septic shock Disposition: ADMITTED IP TO THIS HOSP Condition: Serious Is patient prescribed a controlled substance at d/c from ED?: No Referrals: Chemo Garcia DO [Primary Care Provider] - 1-2 days Decision Time: 19:39
[2018-11-21] MEDS ORDERED: SODIUM CHLORIDE 0.9% 500 ML 500 ML IV SCH (17:30)
[2018-11-21] MEDS: SODIUM CHLORIDE 0.9% 500 ML 500 ML IV SCH ×4 (17:47→17:50)
[2018-11-21 18:04] LABS: Basophils % (A) 0 %; Eosinophils # (A) 0.1 k/uL (0-0.7); Eosinophils % (A) 1 %; HCT 35.3 % (39.0-53.0); HGB 11.7 gm/dL (13.0-17.5); Lymphocytes # (A) 0.8 k/uL (1.0-4.8); Lymphocytes % (A) 4 %; MCH 31.7 pg (25.0-35.0); MCHC 33.2 g/dL (31.0-37.0); Mean Platelet Volume 7.6; Monocytes # (A) 0.5 k/uL (0-1.0); Monocytes % (A) 3 %; Neutrophils # (A) 17.6 k/uL (1.3-7.7); Neutrophils % (A) 92 %; Platelet Count 201 k/uL (150-450); RBC 3.69 m/uL (4.30-5.90); RDW 12.5 % (11.5-15.5); WBC 19.2 k/uL (3.8-10.6)
[2018-11-21 18:06] LABS: MCV 95.6 fL (80.0-100.0)
[2018-11-21 18:08] LABS: Partial Thromboplastin Time 23.5 sec (22.0-30.0)
[2018-11-21 18:09] LABS: Calcium 8.2 mg/dL (8.4-10.2); Potassium 4.4 mmol/L (3.5-5.1); Total Bilirubin 1.1 mg/dL (0.2-1.3); Total Protein 5.8 g/dL (6.3-8.2)
--- NOTE | 2018-11-21 18:59 | XR ---
EXAMINATION: XR chest 2V DATE AND TIME: 11/21/2018 6:24 PM CLINICAL INDICATION: [facility]; Fever TECHNIQUE: Departmental protocol COMPARISON: 10/13/2018 FINDINGS: The overlying soft tissues are prominent. The lungs show a few scattered areas bands of ill-defined consolidative opacity, suspicious for multi focal bronchopneumonia. The pleural spaces are negative. The cardiac silhouette is moderately enlarged, unchanged. The remainder of the mediastinal silhouette is unremarkable. The skeletal structures and soft tissues are negative for acute findings. IMPRESSION: Findings suspicious for multifocal bronchopneumonia.
[2018-11-21] MEDS ORDERED: PNEUMONIA PROTOCOL UTILIZED 1 EACH MISC PO PRN (19:15)
[2018-11-21] MEDS ORDERED: LEVOFLOXACIN 750MG-D5W PMX 750 MG in DEXTROSE/WATER 1 150ML.BAG IVPB STA (19:15)
[2018-11-21] MEDS ORDERED: IPRATROPIUM-ALBUTEROL 3 ML NEB INHALATION PRN (19:15)
[2018-11-21] MEDS ORDERED: PIPERACILLIN-TAZOBACTAM 3.375 GM in SODIUM CHLORIDE 0.9% 100 ML IVPB STA (19:15)
[2018-11-21] MEDS: SODIUM CHLORIDE 0.9% 1,000 ML IV SCH (19:55)
--- NOTE | 2018-11-21 20:43 | ED ---
Medical Decision Making - Lab Data Result diagrams: 11/21/18 16:42 11/21/18 16:42 Lab Results 11/21/18 11/21/18 11/21/18 Range/Units 16:42 16:42 16:42 WBC 19.2 H (3.8-10.6) k/uL RBC 3.69 L (4.30-5.90) m/uL Hgb 11.7 L (13.0-17.5) gm/dL Hct 35.3 L (39.0-53.0) % MCV 95.6 D (80.0-100.0) fL MCH 31.7 (25.0-35.0) pg MCHC 33.2 (31.0-37.0) g/dL RDW 12.5 (11.5-15.5) % Plt Count 201 (150-450) k/uL Neutrophils % 92 % Lymphocytes % 4 % Monocytes % 3 % Eosinophils % 1 % Basophils % 0 % Neutrophils # 17.6 H (1.3-7.7) k/uL Lymphocytes # 0.8 L (1.0-4.8) k/uL Monocytes # 0.5 (0-1.0) k/uL Eosinophils # 0.1 (0-0.7) k/uL Basophils # 0.0 (0-0.2) k/uL PT (9.0-12.0) sec INR (<1.2) APTT (22.0-30.0) sec Sodium 130 L (137-145) mmol/L Potassium 4.4 (3.5-5.1) mmol/L Chloride 96 L (98-107) mmol/L Carbon Dioxide 19 L (22-30) mmol/L Anion Gap 15 mmol/L BUN 30 H (9-20) mg/dL Creatinine 2.05 H (0.66-1.25) mg/dL Est GFR (CKD-EPI)AfAm 35 (>60 ml/min/1.73 sqM) Est GFR (CKD-EPI)NonAf 30 (>60 ml/min/1.73 sqM) Glucose 378 H (74-99) mg/dL Plasma Lactic Acid Gene 6.0 H* (0.7-2.0) mmol/L Calcium 8.2 L (8.4-10.2) mg/dL Total Bilirubin 1.1 (0.2-1.3) mg/dL AST 35 (17-59) U/L ALT 30 (21-72) U/L Alkaline Phosphatase 85 (38-126) U/L Total Protein 5.8 L (6.3-8.2) g/dL Albumin 3.0 L (3.5-5.0) g/dL Influenza Type A RNA (Not Detectd) Influenza Type B (PCR) (Not Detectd) 11/21/18 11/21/18 Range/Units 16:42 17:51 WBC (3.8-10.6) k/uL RBC (4.30-5.90) m/uL Hgb (13.0-17.5) gm/dL Hct (39.0-53.0) % MCV (80.0-100.0) fL MCH (25.0-35.0) pg MCHC (31.0-37.0) g/dL RDW (11.5-15.5) % Plt Count (150-450) k/uL Neutrophils % % Lymphocytes % % Monocytes % % Eosinophils % % Basophils % % Neutrophils # (1.3-7.7) k/uL Lymphocytes # (1.0-4.8) k/uL Monocytes # (0-1.0) k/uL Eosinophils # (0-0.7) k/uL Basophils # (0-0.2) k/uL PT 11.0 (9.0-12.0) sec INR 1.0 (<1.2) APTT 23.5 (22.0-30.0) sec Sodium (137-145) mmol/L Potassium (3.5-5.1) mmol/L Chloride (98-107) mmol/L Carbon Dioxide (22-30) mmol/L Anion Gap mmol/L BUN (9-20) mg/dL Creatinine (0.66-1.25) mg/dL Est GFR (CKD-EPI)AfAm (>60 ml/min/1.73 sqM) Est GFR (CKD-EPI)NonAf (>60 ml/min/1.73 sqM) Glucose (74-99) mg/dL Plasma Lactic Acid Gene (0.7-2.0) mmol/L Calcium (8.4-10.2) mg/dL Total Bilirubin (0.2-1.3) mg/dL AST (17-59) U/L ALT (21-72) U/L Alkaline Phosphatase (38-126) U/L Total Protein (6.3-8.2) g/dL Albumin (3.5-5.0) g/dL Influenza Type A RNA Not Detected (Not Detectd) Influenza Type B (PCR) Not Detected (Not Detectd) Disposition Clinical Impression: Bronchopneumonia, Septic shock Disposition: ADMITTED IP TO THIS HOSP Condition: Serious Procedures - Central Line Placement Right SC Consent Obtained: verbal consent, written consent, emergent situation Patient Placed on Monitor/Pulse Ox: Yes Prep: mask, gown, gloves Central Line Prep: Chlorhexidine scrub Local Anesthesia Used: Lidocaine 1% Amount of Anesthesia Used (mls): 2 Ultrasound Used for Placement: No Central Line Lumen Inserted: triple Central Line Position: good blood return, all ports aspirated, flushed, capped, sutured in place with 3-0 nylon Dressing Applied: Tegaderm Post Procedure X-Ray: tip of catheter in good position Patient Tolerated Procedure: well, no complications Complications: none - Sepsis Sepsis Focused Exam #1 Time Sepsis Criteria Met: 19:20
[2018-11-21] MEDS ORDERED: NOREPINEPHRINE 16 MG in SODIUM CHLORIDE 0.9% 250 ML IV SCH (20:45)
[2018-11-21] MEDS: IPRATROPIUM-ALBUTEROL 3 ML NEB INHALATION SCH (21:13)
--- NOTE | 2018-11-21 21:35 | XR ---
EXAMINATION: XR chest 1V portable DATE AND TIME: 11/21/2018 8:51 PM CLINICAL INDICATION: PHH; line TECHNIQUE: AP upright portable COMPARISON: 11/21/2018 chest radiograph at 6:28 PM FINDINGS: Right subclavian central line tip superimposed over the mid/distal SVC. EKG leads noted. There is no pneumothorax. The overlying soft tissues are prominent. The lungs show a few scattered areas bands of ill-defined consolidative opacity, suspicious for multi focal bronchopneumonia. IMPRESSION: Line placement chest radiograph
[2018-11-21] MEDS: risperiDONE 0.5 MG TAB PO SCH (22:16)
[2018-11-21 22:23] LABS: Glucose,Whole Blood 402 mg/dL (75-99)
[2018-11-21] MEDS ORDERED: INSULIN ASPART 100 UNIT/ML 1 ML 10 ML VIAL SQ ONE (22:34)
[2018-11-21] MEDS: INSULIN ASPART 100 UNIT/ML 1 ML 10 ML VIAL SQ SCH (22:59)
[2018-11-21] MEDS: ATORVASTATIN 10 MG TAB PO SCH (23:03)
[2018-11-21] MEDS: CHOLECALCIFEROL 1,000 UNIT TAB PO SCH (23:03)
[2018-11-21] MEDS: ASPIRIN 81 MG PO SCH (23:03)
[2018-11-22] MEDS: ACETAMINOPHEN TAB 325 MG TAB PO PRN ×3 (01:07→18:40)
[2018-11-22] MEDS: MELATONIN 3 MG TABLET PO SCH ×2 (01:07→23:14)
[2018-11-22] MEDS: traZODone HCL 50 MG TAB PO SCH ×2 (01:07→23:14)
[2018-11-22 01:36] LABS: Amorphous Sediment,Urine Occasional /hpf; Appearance,Urine Cloudy (Clear); Bacteria,Urine Occasional /hpf; Bilirubin,Urine Negative (Negative); Blood,Urine Negative (Negative); Color,Urine Yellow; Glucose,Urine (UA) 4+ (Negative); Granular Casts,Urine 6 /lpf (0); Hyaline Casts,Urine 4 /lpf (0-2); Ketones,Urine Negative (Negative); Leukocyte Esterase,Urine Moderate (Negative); Mucus,Urine Rare /hpf; Nitrite,Urine Negative (Negative); PH, Urine 5.5 (5.0-8.0); Protein,Urine 1+ (Negative); RBC,Urine 2 /hpf (0-5); Specific Gravity,Urine 1.014 (1.001-1.035); Squamous Epithelial Cell,Urine 2 /hpf (0-4); WBC,Urine 26 /hpf (0-5)
[2018-11-22] MEDS: SODIUM CHLORIDE 0.9% 1,000 ML IV SCH ×3 (03:36→20:41)
[2018-11-22] MEDS ORDERED: PIPERACILLIN-TAZOBACTAM 3.375 GM in SODIUM CHLORIDE 0.9% 100 ML IVPB SCH (04:00)
[2018-11-22] MEDS ORDERED: NALOXONE 0.4 MG/ML 1 ML VIAL IV PRN (04:04)
[2018-11-22 06:30] LABS: Basophils % (A) 0 %; Eosinophils # (A) 0.1 k/uL (0-0.7); Eosinophils % (A) 1 %; HCT 31.1 % (39.0-53.0); HGB 10.2 gm/dL (13.0-17.5); Hypochromasia Slight; Lymphocytes # (A) 0.4 k/uL (1.0-4.8); Lymphocytes % (A) 6 %; MCH 32.4 pg (25.0-35.0); MCHC 32.8 g/dL (31.0-37.0); Mean Platelet Volume 7.1; Monocytes # (A) 0.2 k/uL (0-1.0); Monocytes % (A) 2 %; Neutrophils # (A) 7.2 k/uL (1.3-7.7); Neutrophils % (A) 90 %; Platelet Count 155 k/uL (150-450); RBC 3.14 m/uL (4.30-5.90); RDW 12.6 % (11.5-15.5); WBC 7.9 k/uL (3.8-10.6)
[2018-11-22 06:34] LABS: Glucose,Whole Blood 167 mg/dL (75-99)
[2018-11-22] MEDS: INSULIN ASPART 100 UNIT/ML 1 ML 10 ML VIAL SQ SCH ×4 (06:40→21:14)
[2018-11-22 06:50] LABS: Calcium 7.3 mg/dL (8.4-10.2); Magnesium 1.6 mg/dL (1.6-2.3); Phosphorus 3.1 mg/dL (2.5-4.5); Potassium 3.4 mmol/L (3.5-5.1)
--- NOTE | 2018-11-22 07:14 | XR ---
EXAMINATION TYPE: XR chest 1V portable DATE OF EXAM: 11/22/2018 COMPARISON: 11/21/2028 INDICATION: Pneumonia TECHNIQUE: Single frontal view of the chest is obtained. FINDINGS: The heart size is normal. The pulmonary vasculature is normal. The lungs are clear. Right central venous catheter is present with the tip in the superior vena cava region. IMPRESSION: 1. No acute pulmonary process.
[2018-11-22] MEDS: IPRATROPIUM-ALBUTEROL 3 ML NEB INHALATION SCH ×4 (08:43→19:20)
--- NOTE | 2018-11-22 10:08 | P.CNPUL ---
History of Present Illness Consult date: 11/22/18 Requesting physician: Chemo Garcia History of present illness: This is a 78-year-old male patient of Dr. Garcia with past medical history significant for dementia, diabetes mellitus, hypertension, COPD, history of prostate cancer former alcohol abuse, and patient is a former smoker. 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 Currently resides in an adult foster longterm. Poor historian. Patient was brought into the emergency department on 11/21/2018 or difficulty breathing, altered mentation, and fever. Patient has been very fatigued, did have a nonproductive cough. Patient was being treated on an outpatient basis for pneumonia. Chest x-ray on admission showed scattered areas of consolidative opacity, rule out multifocal bronchopneumonia versus atelectasis. Patient has been afebrile while in the hospital, was hypotensive with a blood pressure of 80/56, slightly tachycardic. Initial labs were positive for leukocytosis, white count was 19.2, hemoglobin was 11.7, sodium was 130, potassium is 4.4, chloride was 96, CO2 was 19, BUN was 30, creatinine was 2.05, plasma lactic acid was 6.0, urinalysis did show moderate leuks, 26 white blood cell counts, in clumps, occasional bacteria. Influenza screen was negative. Patient was fluid resuscitated, with 2-1/2 L of IV fluid boluses, and his current IV fluid is 0.9 normal sinus at a rate of 125 ML per hour, this morning he is hemodynamically stable, in sinus mechanism, blood pressure is 140/82, pulse ox on 2 L per nasal cannula was 95%. Afebrile. This morning's chest x-ray showed no acute pulmonary process, as read by radiology, but reviewing the film with Dr. Moore, cannot totally rule out a retrocardiac infiltrate. Patient is on a combination of Levaquin and Zosyn, he never did require vasopressor support, Myles catheter is in place, and patient is nonoliguric producing urine in the order of 80-200 ML per hour. Patient is pleasantly confused, but he is oriented to person and place, cooperative. No cough, no chest congestion, lungs are essentially clear to auscultation, blood and urine cultures been collected and sent, and are pending at this time. Review of Systems All systems: negative Constitutional: Denies chills, Denies fever Eyes: denies blurred vision, denies pain Ears, nose, mouth and throat: Denies headache, Denies sore throat Cardiovascular: Denies chest pain, Denies shortness of breath Respiratory: Reports cough, Reports dyspnea Gastrointestinal: Denies abdominal pain, Denies diarrhea, Denies nausea, Denies vomiting Musculoskeletal: Denies myalgias Integumentary: Denies pruritus, Denies rash Neurological: Denies numbness, Denies weakness Psychiatric: Denies anxiety, Denies depression Endocrine: Denies fatigue, Denies weight change Past Medical History Past Medical History: Cancer, Dementia, Diabetes Mellitus, GERD/Reflux, Hypertension, Memory Impairment, Pneumonia, Prostate Disorder Additional Past Medical History / Comment(s): Prostate cancer. 2015 bleeding ulcer. migraines, uses walker when up. multiple falls at home History of Any Multi-Drug Resistant Organisms: None Reported Past Surgical History: Cholecystectomy, Orthopedic Surgery, Prostate Surgery Additional Past Surgical History / Comment(s): knee left, right leg, back. prostate removed.lt elbow Past Anesthesia/Blood Transfusion Reactions: No Reported Reaction Past Psychological History: Depression Additional Psychological History / Comment(s): pt resides at [facility] Smoking Status: Former smoker Past Alcohol Use History: Daily, None Reported Additional Past Alcohol Use History / Comment(s): pt started smoking at age 12 smokes 1ppd. drinks 1 pint of whiskey a day. last drink approximately 10/01/18 Past Drug Use History: None Reported - Past Family History Father Additional Family Medical History / Comment(s): ulcers Mother History Unknown: Yes Additional Family Medical History / Comment(s): migraines Brother(s) Family Medical History: Cancer Additional Family Medical History / Comment(s): Brain Medications and Allergies Home Medications Medication Instructions Recorded Confirmed Type Atorvastatin [Lipitor] 10 mg PO HS@199905/15/16 11/21/18 History Folic Acid 1 mg PO DAILY@1400 05/15/16 11/21/18 History Imipramine [Tofranil] 10 mg PO TID@0800,1400,199905/15/16 11/21/18 History Aspirin [Adult Low Dose Aspirin EC] 81 mg PO HS@199909/25/18 11/21/18 History Cholecalciferol [Vitamin D3] 2,000 unit PO HS@199909/25/18 11/21/18 History Metoprolol Tartrate 25 mg PO BID@0800,199909/25/18 11/21/18 History Pantoprazole Sodium 40 mg PO DAILY@0800 09/25/18 11/21/18 History Melatonin 3 mg PO HS@199910/13/18 11/21/18 History Acetaminophen [Tylenol] 650 mg PO Q4H PRN 11/21/18 11/21/18 History Amoxic-Pot Clav 875-125Mg 1 tab PO BID@0800,1600 11/21/18 11/21/18 History [Augmentin 875-125] Azithromycin [Zithromax Z-pack] See Taper PO DIRECTED 11/21/18 11/21/18 History Insulin Glargine [Lantus] 10 unit SQ HS@199911/21/18 11/21/18 History Oseltamivir [Tamiflu] 75 mg PO DAILY@199911/21/18 11/21/18 History risperiDONE 0.5 mg PO TID 11/21/18 11/21/18 History traZODone HCL 50 mg PO HS@199911/21/18 11/21/18 History Allergies Allergy/AdvReac Type Severity Reaction Status Date / Time lorazepam AdvReac Hallucinati Verified 11/22/18 06:28 ons zolpidem tartrate AdvReac Hallucinati Verified 11/21/18 17:13 [From Sarah] ons Physical Exam Vitals: Vital Signs Temp Pulse Resp BP Pulse Ox 11/22/18 08:43 97 11/22/18 07:00 80 17 140/82 95 11/22/18 06:00 73 12 141/77 97 11/22/18 05:00 74 12 125/62 96 11/22/18 04:00 98.2 F 81 20 109/57 94 L 11/22/18 03:00 88 18 101/66 94 L 11/22/18 02:00 77 22 100/59 93 L 11/22/18 01:00 85 22 95/60 95 11/22/18 00:00 98.3 F 89 20 109/59 94 L 11/21/18 23:00 80 18 97/71 95 11/21/18 21:00 96 18 105/63 97 11/21/18 20:45 92 18 96/71 97 11/21/18 20:16 88/56 11/21/18 20:05 98.6 F 11/21/18 19:49 99 18 101/56 99 11/21/18 18:00 110 H 20 123/77 97 11/21/18 16:25 98.5 F 113 H 24 109/60 93 L Intake and Output 11/21/18 11/22/18 11/22/18 22:59 06:59 14:59 Intake Total 1200 125 Output Total 855 125 Balance 345 0 Intake: IV 1000 125 Sodium Chloride 0.9% 1, 1000 125 000 ml @ 125 mls/hr IV . Q8H YARITZA Rx#:[id number] Oral 200 Output: Urine 855 125 Other: Voiding Method Indwelling Catheter Weight 72.575 kg GENERAL EXAM: Alert, pleasantly confused, 78-year-old white male, oriented to self and place, comfortable in no apparent distress. HEAD: Normocephalic/atraumatic. EYES: Normal reaction of pupils, equal size. Conjunctiva pink, sclera white. NOSE: Clear with pink turbinates. THROAT: No erythema or exudates. NECK: No masses, no JVD, no thyroid enlargement, no adenopathy. CHEST: No chest wall deformity. Symmetrical expansion. LUNGS: Equal air entry with no crackles, wheeze, rhonchi or dullness. CVS: Regular rate and rhythm, normal S1 and S2, no gallops, no murmurs, no rubs ABDOMEN: Soft, nontender. No hepatosplenomegaly, normal bowel sounds, no guarding or rigidity. EXTREMITIES: No clubbing, no edema, no cyanosis, 2+ pulses and upper and lower extremities. MUSCULOSKELETAL: Muscle strength and tone normal. SPINE: No scoliosis or deformity SKIN: No rashes CENTRAL NERVOUS SYSTEM: Alert and oriented -3. No focal deficits, tone is normal in all 4 extremities. PSYCHIATRIC: Alert and oriented -3. Appropriate affect. Intact judgment and insight. Results - Laboratory Findings CBC and BMP: 11/22/18 06:06 11/22/18 06:06 PT/INR, D-dimer PT 11.0 sec (9.0-12.0) 11/21/18 16:42 INR 1.0 (<1.2) 01/24/19 16:42 Abnormal lab findings: Abnormal Labs 11/21/18 11/21/18 11/21/18 16:42 16:42 16:42 WBC 19.2 H RBC 3.69 L Hgb 11.7 L Hct 35.3 L Neutrophils # 17.6 H Lymphocytes # 0.8 L Sodium 130 L Potassium Chloride 96 L Carbon Dioxide 19 L BUN 30 H Creatinine 2.05 H Glucose 378 H POC Glucose (mg/dL) Plasma Lactic Acid Gene 6.0 H* Calcium 8.2 L Total Protein 5.8 L Albumin 3.0 L Urine Protein Urine Glucose (UA) Ur Leukocyte Esterase Urine WBC Urine WBC Clumps Amorphous Sediment Urine Bacteria Hyaline Casts Urine Mucus 11/21/18 11/22/18 11/22/18 21:57 01:00 06:06 WBC RBC 3.14 L Hgb 10.2 L Hct 31.1 L Neutrophils # Lymphocytes # 0.4 L Sodium Potassium Chloride Carbon Dioxide BUN Creatinine Glucose POC Glucose (mg/dL) 402 H Plasma Lactic Acid Gene Calcium Total Protein Albumin Urine Protein 1+ H Urine Glucose (UA) 4+ H Ur Leukocyte Esterase Moderate H Urine WBC 26 H Urine WBC Clumps Occasional H Amorphous Sediment Occasional H Urine Bacteria Occasional H Hyaline Casts 4 H Urine Mucus Rare H 11/22/18 11/22/18 06:06 06:31 WBC RBC Hgb Hct Neutrophils # Lymphocytes # Sodium 135 L Potassium 3.4 L Chloride Carbon Dioxide 21 L BUN 31 H Creatinine 1.66 H Glucose 165 H POC Glucose (mg/dL) 167 H Plasma Lactic Acid Gene Calcium 7.3 L Total Protein Albumin Urine Protein Urine Glucose (UA) Ur Leukocyte Esterase Urine WBC Urine WBC Clumps Amorphous Sediment Urine Bacteria Hyaline Casts Urine Mucus - Diagnostic Findings Chest x-ray: report reviewed, image reviewed Additional studies: EKG reviewed Assessment and Plan Plan: Assessment: #1. Acute septic shock, source of infection could be related to underlying urinary tract infection, possible pneumonia, initial chest x-ray showed possible multifocal opacities, today's CXR showed a possible retrocardiac infiltratee. #2. Shortness of breath present on admission, improved, likely related to sepsis #3. Anion gap metabolic acidosis related to lactic acidosis, initial lactic acid was 6.0, improved down to 1.4 after fluid resuscitation #4. Leukocytosis, improved #5. Mild hyponatremia, improved with IV fluids #6. Acute kidney injury, improving with IV fluids #7. Dementia #8. COPD, currently stable #9. Former nicotine dependence, patient quit smoking 2 months ago, prior to that smoked a pack and a half a day for 50 years #10. EtOH abuse, in remission for 2 months. Patient used to drink a fifth of whiskey on a daily basis Plan: Continue current antibiotic coverage, patient is awake, oriented 2, hemodynamically stable, responded well to IV fluid resuscitation, did not require vasopressor support, will await the results of the final blood and urine culture, it is chest x-ray has been reviewed with Dr. Bond, and shows resolution of the previously seen scattered areas of consolidative opacity, today's CXR showed a possible retrocardiac infiltrate. Afebrile, and influenza screen was negative, lactic acidosis has resolved, renal profile has improved, replacing serum potassium per protocol. Patient denies any shortness of breath , no cough or congestion, clear lung sounds on physical exam. GI and DVT prophylaxis, he is nonoliguric. Probably transfer out of the intensive care unit today if remains stable. I performed a history & physical examination of the patient and discussed their management with my nurse practitioner, Dorene Epstein. I reviewed the nurse practitioner's note and agree with the documented findings and plan of care. Lung sounds are positive for clear breath sounds. The findings and the impression was discussed with the patient. I attest to the documentation by the nurse practitioner. Time with Patient: Greater than 30
[2018-11-22] MEDS: PIPERACILLIN-TAZOBACTAM 3.375 GM in SODIUM CHLORIDE 0.9% 100 ML IVPB SCH ×3 (10:14→23:59)
[2018-11-22] MEDS: HEPARIN SODIUM,PORCINE 5,000 UNIT/ML 1 ML VIAL SQ SCH ×2 (10:15→21:15)
[2018-11-22] MEDS: PANTOPRAZOLE 40 MG TABLET PO SCH (10:16)
[2018-11-22] MEDS: risperiDONE 0.5 MG TAB PO SCH ×3 (10:17→23:14)
[2018-11-22] MEDS ORDERED: Magnesium Replacement Protocol 1 EACH MISC MISCELLANE PRN (10:55)
[2018-11-22] MEDS ORDERED: Potassium Replacement Protocol 1 EACH MISC MISCELLANE PRN (10:55)
[2018-11-22 12:09] LABS: Glucose,Whole Blood 261 mg/dL (75-99)
[2018-11-22] MEDS: MAGNESIUM SULFATE-D5W PMX 1 GM in DEXTROSE/WATER 1 100ML.BAG IVPB SCH ×2 (12:36→13:53)
[2018-11-22] MEDS: POTASSIUM CHLORIDE ER 20 MEQ TAB.ER PO SCH ×2 (12:37→13:52)
[2018-11-22 14:38] LABS: Hemoglobin A1C 8.5 % (4.0-6.0)
[2018-11-22 17:15] LABS: Glucose,Whole Blood 280 mg/dL (75-99)
[2018-11-22] MEDS: FOLIC ACID 1 MG TAB PO SCH (17:22)
[2018-11-22] MEDS ORDERED: LEVOFLOXACIN 750MG-D5W PMX 750 MG in DEXTROSE/WATER 1 150ML.BAG IVPB SCH (21:00)
[2018-11-22] MEDS: CHOLECALCIFEROL 1,000 UNIT TAB PO SCH (21:13)
[2018-11-22] MEDS: ASPIRIN 81 MG PO SCH (21:14)
[2018-11-22] MEDS: ATORVASTATIN 10 MG TAB PO SCH (21:14)
[2018-11-22 21:34] LABS: Glucose,Whole Blood 288 mg/dL (75-99)
[2018-11-22] MEDS: IMIPRAMINE 10 MG TAB PO SCH (23:14)
[2018-11-22] MEDS: METOPROLOL TARTRATE 25 MG TAB PO SCH (23:14)
--- NOTE | 2018-11-23 00:05 | P.HPIM ---
History of Present Illness H&P Date: 11/22/18 Chief Complaint: Acute community-acquired pneumonia. Patient is a pleasantly demented 78-year-old male presenting to emergency Department concerns for difficulty in breathing. Patient has been residing in assisted living at [facility]. Patient did see his primary care physician several days ago and was diagnosed with pneumonia. Patient has had increased dyspnea. Patient has had fevers. Patient denies any pain. Patient does admit to feeling fatigued. Patient has had cough, nonproductive. Past Medical History Past Medical History: Cancer, Dementia, Diabetes Mellitus, GERD/Reflux, Hypertension, Memory Impairment, Pneumonia, Prostate Disorder Additional Past Medical History / Comment(s): Prostate cancer. 2015 bleeding ulcer. migraines, uses walker when up. multiple falls at home History of Any Multi-Drug Resistant Organisms: None Reported Past Surgical History: Cholecystectomy, Orthopedic Surgery, Prostate Surgery Additional Past Surgical History / Comment(s): knee left, right leg, back. prostate removed.lt elbow Past Anesthesia/Blood Transfusion Reactions: No Reported Reaction Past Psychological History: Depression Additional Psychological History / Comment(s): pt resides at [facility] Smoking Status: Former smoker Past Alcohol Use History: Daily, None Reported Additional Past Alcohol Use History / Comment(s): pt started smoking at age 12 smokes 1ppd. drinks 1 pint of whiskey a day. last drink approximately 10/01/18 Past Drug Use History: None Reported - Past Family History Father Additional Family Medical History / Comment(s): ulcers Mother History Unknown: Yes Additional Family Medical History / Comment(s): migraines Brother(s) Family Medical History: Cancer Additional Family Medical History / Comment(s): Brain Medications and Allergies Home Medications Medication Instructions Recorded Confirmed Type Atorvastatin [Lipitor] 10 mg PO HS@199905/15/16 11/21/18 History Folic Acid 1 mg PO DAILY@1400 05/15/16 11/21/18 History Imipramine [Tofranil] 10 mg PO TID@0800,1399,199905/15/16 11/21/18 History Aspirin [Adult Low Dose Aspirin EC] 81 mg PO HS@199909/25/18 11/21/18 History Cholecalciferol [Vitamin D3] 2,000 unit PO HS@199909/25/18 11/21/18 History Metoprolol Tartrate 25 mg PO BID@0800,199909/25/18 11/21/18 History Pantoprazole Sodium 40 mg PO DAILY@0800 09/25/18 11/21/18 History Melatonin 3 mg PO HS@199910/13/18 11/21/18 History Acetaminophen [Tylenol] 650 mg PO Q4H PRN 11/21/18 11/21/18 History Amoxic-Pot Clav 875-125Mg 1 tab PO BID@0800,1600 11/21/18 11/21/18 History [Augmentin 875-125] Azithromycin [Zithromax Z-pack] See Taper PO DIRECTED 11/21/18 11/21/18 History Insulin Glargine [Lantus] 10 unit SQ HS@199911/21/18 11/21/18 History Oseltamivir [Tamiflu] 75 mg PO DAILY@199911/21/18 11/21/18 History risperiDONE 0.5 mg PO TID 11/21/18 11/21/18 History traZODone HCL 50 mg PO HS@199911/21/18 11/21/18 History Allergies Allergy/AdvReac Type Severity Reaction Status Date / Time lorazepam AdvReac Hallucinati Verified 11/22/18 06:28 ons zolpidem tartrate AdvReac Hallucinati Verified 11/21/18 17:13 [From Sarah] ons Physical Exam Osteopathic Statement: *. No significant issues noted on an osteopathic structural exam other than those noted in the History and Physical/Consult. Vitals: Vital Signs Temp Pulse Resp BP Pulse Ox 11/22/18 20:00 98.9 F 110 H 25 H 147/80 96 11/22/18 19:29 101 H 16 11/22/18 19:21 107 H 16 11/22/18 19:00 107 H 24 131/74 95 11/22/18 18:00 103 H 23 120/65 100 11/22/18 17:00 92 23 111/64 98 11/22/18 16:00 98.5 F 92 23 109/63 97 11/22/18 15:37 84 16 11/22/18 15:29 89 16 11/22/18 15:00 92 20 117/66 11/22/18 14:00 105 H 22 117/66 11/22/18 13:00 97 20 11/22/18 12:16 96 11/22/18 12:07 98 11/22/18 12:00 98.3 F 98 35 H 125/71 97 11/22/18 11:00 101 H 29 H 131/75 95 11/22/18 10:00 105 H 22 152/76 97 11/22/18 09:00 98 35 H 144/79 97 11/22/18 08:52 96 11/22/18 08:43 97 11/22/18 08:00 97.9 F 90 26 H 119/67 97 11/22/18 07:00 80 17 140/82 95 11/22/18 06:00 73 12 141/77 97 11/22/18 05:00 74 12 125/62 96 11/22/18 04:00 98.2 F 81 20 109/57 94 L 11/22/18 03:00 88 18 101/66 94 L 11/22/18 02:00 77 22 100/59 93 L 11/22/18 01:00 85 22 95/60 95 11/22/18 00:00 98.3 F 89 20 109/59 94 L Intake and Output 11/22/18 11/22/18 11/23/18 14:59 22:59 06:59 Intake Total 1650 600 Output Total 545 650 Balance 1105 -50 Intake: IV 750 500 Sodium Chloride 0.9% 1, 750 500 000 ml @ 125 mls/hr IV . Q8H YARITZA Rx#:[id number] Intake, IV Titration 100 100 Amount Magnesium Sulfate-D5w Pmx 100 1 gm In Dextrose/Water 1 100ml.bag @ 100 mls/hr IVPB Q1H YARITZA Rx#: [id number] Piperacillin-Tazobactam 3 100 .375 gm In Sodium Chloride 0.9% 100 ml @ 25 mls/hr IVPB Q8H YARITZA Rx#: [id number] Oral 800 Output: Urine 545 650 Other: Voiding Method Indwelling Catheter Indwelling Catheter GENERAL: Well-appearing, well-nourished and in no acute distress. Pleasantly confused HEAD: Atraumatic, normocephalic. EYES: Pupils equal round and reactive to light, extraocular movements intact, sclera anicteric, conjunctiva are normal. ENT:nares patent, oropharynx clear without exudates. Moist mucous membranes. NECK: Normal range of motion, supple without lymphadenopathy or JVD, no thyromegaly LUNGS: Breath sounds diminished to auscultation bilaterally and equal. Slight wheezes bilateral. HEART: Regular rate and rhythm without murmurs, rubs or gallops.S1S2 Normal ABDOMEN: Soft, nontender, normoactive bowel sounds. No guarding, no rebound. No masses appreciated. EXTREMITIES: Normal range of motion, no pitting or edema. No clubbing or cyanosis. NEUROLOGICAL: Cranial nerves II through XII grossly intact. Normal speech, normal gait. PSYCH: Normal mood, normal affect. SKIN: Warm, Dry, normal turgor, no rashes or lesions noted. Results CBC & Chem 7: 11/22/18 06:06 11/22/18 06:06 Labs: Abnormal Lab Results - Last 24 Hours (Table) 11/21/18 11/22/18 11/22/18 Range/Units 16:42 01:00 06:06 RBC 3.14 L (4.30-5.90) m/uL Hgb 10.2 L (13.0-17.5) gm/dL Hct 31.1 L (39.0-53.0) % Lymphocytes # 0.4 L (1.0-4.8) k/uL Sodium (137-145) mmol/L Potassium (3.5-5.1) mmol/L Carbon Dioxide (22-30) mmol/L BUN (9-20) mg/dL Creatinine (0.66-1.25) mg/dL Glucose (74-99) mg/dL POC Glucose (mg/dL) (75-99) mg/dL Hemoglobin A1c 8.5 H (4.0-6.0) % Calcium (8.4-10.2) mg/dL Urine Protein 1+ H (Negative) Urine Glucose (UA) 4+ H (Negative) Ur Leukocyte Esterase Moderate H (Negative) Urine WBC 26 H (0-5) /hpf Urine WBC Clumps Occasional H (None) /hpf Amorphous Sediment Occasional H (None) /hpf Urine Bacteria Occasional H (None) /hpf Hyaline Casts 4 H (0-2) /lpf Urine Mucus Rare H (None) /hpf 11/22/18 11/22/18 11/22/18 Range/Units 06:06 06:31 11:58 RBC (4.30-5.90) m/uL Hgb (13.0-17.5) gm/dL Hct (39.0-53.0) % Lymphocytes # (1.0-4.8) k/uL Sodium 135 L (137-145) mmol/L Potassium 3.4 L (3.5-5.1) mmol/L Carbon Dioxide 21 L (22-30) mmol/L BUN 31 H (9-20) mg/dL Creatinine 1.66 H (0.66-1.25) mg/dL Glucose 165 H (74-99) mg/dL POC Glucose (mg/dL) 167 H 261 H (75-99) mg/dL Hemoglobin A1c (4.0-6.0) % Calcium 7.3 L (8.4-10.2) mg/dL Urine Protein (Negative) Urine Glucose (UA) (Negative) Ur Leukocyte Esterase (Negative) Urine WBC (0-5) /hpf Urine WBC Clumps (None) /hpf Amorphous Sediment (None) /hpf Urine Bacteria (None) /hpf Hyaline Casts (0-2) /lpf Urine Mucus (None) /hpf 11/22/18 11/22/18 Range/Units 17:13 20:30 RBC (4.30-5.90) m/uL Hgb (13.0-17.5) gm/dL Hct (39.0-53.0) % Lymphocytes # (1.0-4.8) k/uL Sodium (137-145) mmol/L Potassium (3.5-5.1) mmol/L Carbon Dioxide (22-30) mmol/L BUN (9-20) mg/dL Creatinine (0.66-1.25) mg/dL Glucose (74-99) mg/dL POC Glucose (mg/dL) 280 H 288 H (75-99) mg/dL Hemoglobin A1c (4.0-6.0) % Calcium (8.4-10.2) mg/dL Urine Protein (Negative) Urine Glucose (UA) (Negative) Ur Leukocyte Esterase (Negative) Urine WBC (0-5) /hpf Urine WBC Clumps (None) /hpf Amorphous Sediment (None) /hpf Urine Bacteria (None) /hpf Hyaline Casts (0-2) /lpf Urine Mucus (None) /hpf Microbiology - Last 24 Hours (Table) 01/24/19 17:51 Blood Culture Gram Stain - Preliminary Blood Blood Culture - Preliminary Escherichia coli 11/21/18 17:51 Blood Culture - Final Blood 11/22/18 01:00 Urine Culture - Preliminary Urine,Catheterized Thrombosis Risk Factor Assmnt - Choose All That Apply Any of the Below Risk Factors Present?: Yes Each Risk Factor Represents 3 Points: Age 75 years or older Other congenital or acquired thrombophilia - If yes, enter type in comment: No Thrombosis Risk Factor Assessment Total Risk Factor Score: 3 Thrombosis Risk Factor Assessment Level: Moderate Risk Assessment and Plan (1) Bronchopneumonia Current Visit: Yes Status: Acute Code(s): J18.0 - BRONCHOPNEUMONIA, UNSPECIFIED ORGANISM SNOMED Code(s): 338276761 (2) Septic shock Current Visit: Yes Status: Acute Code(s): A41.9 - SEPSIS, UNSPECIFIED ORGANISM; R65.21 - SEVERE SEPSIS WITH SEPTIC SHOCK SNOMED Code(s): 69825124 (3) Alcohol abuse Current Visit: No Status: Acute Code(s): F10.10 - ALCOHOL ABUSE, UNCOMPLICATED SNOMED Code(s): 35210169 (4) Chronic abdominal pain Current Visit: No Status: Acute Code(s): R10.9 - UNSPECIFIED ABDOMINAL PAIN SNOMED Code(s): 248612634 (5) Diabetes Current Visit: No Status: Acute Code(s): E11.9 - TYPE 2 DIABETES MELLITUS WITHOUT COMPLICATIONS SNOMED Code(s): 24881189 (6) Esophagitis Current Visit: No Status: Acute Code(s): K20.9 - ESOPHAGITIS, UNSPECIFIED SNOMED Code(s): 94339443 (7) Symptomatic cholelithiasis Current Visit: No Status: Acute Code(s): K80.20 - CALCULUS OF GALLBLADDER W/ O CHOLECYSTITIS W/O OBSTRUCTION SNOMED Code(s): 274896486 (8) UTI (urinary tract infection) Current Visit: No Status: Acute Code(s): N39.0 - URINARY TRACT INFECTION, SITE NOT SPECIFIED SNOMED Code(s): 75449158 Plan: Continue ICU care patient is currently comfortable continue supportive measures by Dr. Cloud in pulmonary critical care. IV antibiotics pending culture DVT prophylaxis continued to need to follow patient's overall guarded care
[2018-11-23] MEDS: ACETAMINOPHEN TAB 325 MG TAB PO PRN (01:43)
[2018-11-23] MEDS: SODIUM CHLORIDE 0.9% 1,000 ML IV SCH ×2 (02:44→22:54)
[2018-11-23] MEDS: IPRATROPIUM-ALBUTEROL 3 ML NEB INHALATION SCH ×2 (07:46→21:36)
[2018-11-23 07:48] LABS: Glucose,Whole Blood 168 mg/dL (75-99)
[2018-11-23] MEDS: INSULIN ASPART 100 UNIT/ML 1 ML 10 ML VIAL SQ SCH ×4 (08:20→23:54)
[2018-11-23] MEDS: METOPROLOL TARTRATE 25 MG TAB PO SCH ×2 (08:20→21:17)
[2018-11-23] MEDS: PANTOPRAZOLE 40 MG TABLET PO SCH (08:20)
[2018-11-23] MEDS: IMIPRAMINE 10 MG TAB PO SCH ×3 (08:21→23:51)
[2018-11-23] MEDS: PIPERACILLIN-TAZOBACTAM 3.375 GM in SODIUM CHLORIDE 0.9% 100 ML IVPB SCH ×2 (08:21→22:54)
[2018-11-23] MEDS: FOLIC ACID 1 MG TAB PO SCH (08:21)
[2018-11-23] MEDS: HEPARIN SODIUM,PORCINE 5,000 UNIT/ML 1 ML VIAL SQ SCH ×2 (08:21→21:17)
[2018-11-23] MEDS: risperiDONE 0.5 MG TAB PO SCH ×3 (08:22→23:51)
--- NOTE | 2018-11-23 09:08 | XR ---
EXAMINATION TYPE: XR chest 1V DATE OF EXAM: 11/23/2018 HISTORY: pneumonia. REFERENCE: Previous study dated 11/22/2018. FINDINGS: The heart is enlarged. There is apparent elevation right hemidiaphragm. There is associated atelectasis in the right lung base. There is blunting of the left CP angle. I could not exclude a sm all left effusion. IMPRESSION: 1. CARDIOMEGALY. 2. I CANNOT EXCLUDE A SMALL LEFT EFFUSION. 3. MILD ATELECTATIC CHANGE, RIGHT LUNG BASE.
[2018-11-23 12:18] LABS: Glucose,Whole Blood 235 mg/dL (75-99)
--- NOTE | 2018-11-23 13:53 | PN ---
PROGRESS NOTE BRIEF HISTORY: This is a 78-year-old white male whom I saw in consultation yesterday, patient was admitted with acute sepsis. The likely sources for his infection were felt to be either left lower lobe pneumonia, since his chest x-ray was noted to be abnormal upon admission. The other source of infection was felt to be related to his urine. The patient was treated with protocol for sepsis. He did not require the pressors, responded well to fluids, and he was given antibiotics. So far his the chest x-ray is showing significant improvement in his left lower lobe abnormality and his blood is positive for E coli. The patient remains on antibiotics, clinically he is feeling much better. He is already out of the ICU, he is on a medical floor. Still receiving antibiotics for what seems to be gram-negative bacteremia and sepsis. Again, the most likely source of his bacteremia is the urine. Although the patient denies any symptoms of dysuria, frequency, or urgency. Denies any cough. No wheezing. No chest pain. He did have fever when he came in. Presently afebrile. PHYSICAL EXAMINATION: Physical examination revealed a 78-year-old white male, pleasant, in no distress. HEENT: PERRLA, EOMI, no icterus, no neck masses, no JVD, moist mucous membranes, no stridor. No carotid bruits. CHEST: Diminished breath sounds at the bases. No crackles, rhonchi, or wheezes. CARDIAC EXAM: Normal S1, S2, no gallops. ABDOMEN: Obese, soft, nontender. No megaly. No rebound. EXTREMITIES: No clubbing, trace edema. No cyanosis. IMPRESSION: Acute gram negative sepsis and gram-negative bacteremia secondary to Escherichia coli, most likely source is the urine, although the possibility of left lower lobe pneumonia is not entirely ruled out. RECOMMENDATION: Patient will remain on the same medications as ordered yesterday, will continue antibiotics until the final sensitivity on the E coli is available, then antibiotics will be adjusted accordingly. The patient is not quite ready for any discharge planning at this point. MMODL / IJN: [id number] /
[2018-11-23] MEDS ORDERED: LORazepam 2 MG/ML INJ ONE (17:15)
[2018-11-23 18:47] LABS: Glucose,Whole Blood 240 mg/dL (75-99)
[2018-11-23] MEDS ORDERED: LEVOFLOXACIN 750MG-D5W PMX 750 MG in DEXTROSE/WATER 1 150ML.BAG IVPB SCH (20:00)
[2018-11-23] MEDS: MELATONIN 3 MG TABLET PO SCH (21:16)
[2018-11-23] MEDS: CHOLECALCIFEROL 1,000 UNIT TAB PO SCH (21:16)
[2018-11-23] MEDS: ASPIRIN 81 MG PO SCH (21:16)
[2018-11-23] MEDS: traZODone HCL 50 MG TAB PO SCH (21:17)
[2018-11-23 21:19] LABS: Glucose,Whole Blood 255 mg/dL (75-99)
[2018-11-23] MEDS: ATORVASTATIN 10 MG TAB PO SCH (23:51)
[2018-11-24] MEDS: SODIUM CHLORIDE 0.9% 1,000 ML IV SCH ×3 (00:03→09:16)
[2018-11-24] MEDS: PIPERACILLIN-TAZOBACTAM 3.375 GM in SODIUM CHLORIDE 0.9% 100 ML IVPB SCH ×4 (03:08→23:36)
[2018-11-24 07:41] LABS: Glucose,Whole Blood 271 mg/dL (75-99)
[2018-11-24 07:42] LABS: HCT 31.2 % (39.0-53.0); HGB 10.2 gm/dL (13.0-17.5); MCH 32.5 pg (25.0-35.0); MCHC 32.8 g/dL (31.0-37.0); MCV 98.9 fL (80.0-100.0); Mean Platelet Volume 7.8; Platelet Count 178 k/uL (150-450); RBC 3.15 m/uL (4.30-5.90); RDW 12.4 % (11.5-15.5); WBC 8.4 k/uL (3.8-10.6)
[2018-11-24 07:44] LABS: Band Neutrophils % 1 %; Eosinophils # (M) 0.08 k/uL (0-0.7); Lymphocytes # (M) 0.92 k/uL (1.0-4.8); Monocytes # (M) 1.09 k/uL (0-1.0); Neutrophils % (M) 74 %; Nucleated Red Blood Cells 0 /100 WBC (0-0); Poikilocytosis (M) Present; Total Cells Counted 100
[2018-11-24 08:04] LABS: HCT 29.5 % (39.0-53.0); HGB 10.2 gm/dL (13.0-17.5); MCH 33.2 pg (25.0-35.0); MCHC 34.5 g/dL (31.0-37.0); MCV 96.2 fL (80.0-100.0); Mean Platelet Volume 7.9; Platelet Count 167 k/uL (150-450); RBC 3.06 m/uL (4.30-5.90); RDW 12.5 % (11.5-15.5); WBC 5.9 k/uL (3.8-10.6)
[2018-11-24] MEDS: IPRATROPIUM-ALBUTEROL 3 ML NEB INHALATION SCH ×4 (08:32→20:03)
[2018-11-24 08:34] LABS: Magnesium 1.6 mg/dL (1.6-2.3); Phosphorus 3.4 mg/dL (2.5-4.5); Potassium 3.9 mmol/L (3.5-5.1)
[2018-11-24] MEDS: HEPARIN SODIUM,PORCINE 5,000 UNIT/ML 1 ML VIAL SQ SCH ×2 (09:15→21:27)
[2018-11-24] MEDS: INSULIN ASPART 100 UNIT/ML 1 ML 10 ML VIAL SQ SCH ×4 (09:15→21:27)
[2018-11-24] MEDS: FOLIC ACID 1 MG TAB PO SCH (09:16)
[2018-11-24] MEDS: IMIPRAMINE 10 MG TAB PO SCH ×3 (09:16→21:26)
[2018-11-24] MEDS: PANTOPRAZOLE 40 MG TABLET PO SCH (09:16)
[2018-11-24] MEDS: METOPROLOL TARTRATE 25 MG TAB PO SCH ×2 (09:16→21:26)
[2018-11-24] MEDS: risperiDONE 0.5 MG TAB PO SCH ×3 (09:16→21:26)
--- NOTE | 2018-11-24 11:27 | P.PN ---
Subjective Progress Note Date: 11/24/18 Principal diagnosis: Acute gram-negative sepsis, gram-negative bacteremia secondary to E. coli. Sources could be lungs or urine. This is a 78-year-old male patient of Dr. Garcia with past medical history significant for dementia, diabetes mellitus, hypertension, COPD, history of prostate cancer former alcohol abuse, and patient is a former smoker. 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 Currently resides in an adult foster [facility]. Poor historian. Patient was brought into the emergency department on 11/21/2018 or difficulty breathing, altered mentation, and fever. Patient has been very fatigued, did have a nonproductive cough. Patient was being treated on an outpatient basis for pneumonia. Chest x-ray on admission showed scattered areas of consolidative opacity, rule out multifocal bronchopneumonia versus atelectasis. Patient has been afebrile while in the hospital, was hypotensive with a blood pressure of 80/56, slightly tachycardic. Initial labs were positive for leukocytosis, white count was 19.2, hemoglobin was 11.7, sodium was 130, potassium is 4.4, chloride was 96, CO2 was 19, BUN was 30, creatinine was 2.05, plasma lactic acid was 6.0, urinalysis did show moderate leuks, 26 white blood cell counts, in clumps, occasional bacteria. Influenza screen was negative. Patient was fluid resuscitated, with 2-1/2 L of IV fluid boluses, and his current IV fluid is 0.9 normal sinus at a rate of 125 ML per hour, this morning he is hemodynamically stable, in sinus mechanism, blood pressure is 140/82, pulse ox on 2 L per nasal cannula was 95%. Afebrile. This morning's chest x-ray showed no acute pulmonary process, as read by radiology, but reviewing the film with Dr. Moore, cannot totally rule out a retrocardiac infiltrate. Patient is on a combination of Levaquin and Zosyn, he never did require vasopressor support, Myles catheter is in place, and patient is nonoliguric producing urine in the order of 80-200 ML per hour. Patient is pleasantly confused, but he is oriented to person and place, cooperative. No cough, no chest congestion, lungs are essentially clear to auscultation, blood and urine cultures been collected and sent, and are pending at this time. Patient was reevaluated today on 11/24/2018, he is presently on a regular medical floor, relatively asymptomatic, patient was agitated last night, he did however receive 1 dose of Ativan, and he is much calm her today. Actually when I examined him today the patient was quite sleepy, and in no distress. He did have a chest x-ray yesterday which showed no evidence of congestive heart failure, but there is atelectasis is noted of the left base, may be an area of consolidation/pneumonia. Patient did receive a dose of Lasix yesterday for increased shortness of breath. However at the time he was extremely agitated. And the patient was developing what seems to be . Chest x-ray this morning is also showing some atelectasis at the bases mostly at the left base, retrocardiac area. Labs were noted to be relatively normal. His CBC is normal. Hemoglobin is 10.2 however. BUN is 60 creatinine is 1.3, improving compared to baseline creatinine on admission was 2.05 Objective - Vital Signs Vital signs: Vital Signs Temp 98.1 F 11/24/18 06:10 Pulse 104 H 11/24/18 06:10 Resp 20 11/24/18 06:10 BP 124/72 11/24/18 06:10 Pulse Ox 92 L 11/24/18 06:10 Intake & Output 11/23/18 11/24/18 11/24/18 18:59 06:59 18:59 Intake Total 1100 Output Total 49 Balance -49 1100 Intake: Oral 1100 Output: Post Void Residual 49 Other: Voiding Method Incontinent Incontinent # Voids 4 4 # Bowel Movements 0 - Exam Physical Exam: Revealed a 78-year-old white male in no distress, on room air. Head: Atraumatic, normocephalic. HEENT:[Neck is supple.] [No neck masses.] [No thyromegaly.] [No JVD.] Chest: [Diminished breath sounds at the bases, no crackles or rhonchi or wheezes. Cardiac Exam: [Normal S1 and S2, no S3 gallop, no murmur.] Abdomen: [Soft, nontender, no megaly, no rebound, no guarding, normal bowel sounds.] Extremities: [No clubbing, no edema, no cyanosis.] Neurological Exam: No gross focal deficit on admission, however the patient has been noted to be intermittently confused, and agitated, especially last night, hence his trazodone dose was increased. And the patient is on multiple medications for his psychosis-type of picture and confusion. - Labs CBC & Chem 7: 11/24/18 07:48 11/24/18 07:48 Labs: Abnormal Lab Results - Last 24 Hours (Table) 11/23/18 11/23/18 11/23/18 Range/Units 11:50 12:14 17:11 RBC 3.15 L (4.30-5.90) m/uL Hgb 10.2 L (13.0-17.5) gm/dL Hct 31.2 L (39.0-53.0) % Lymphocytes # (Manual) 0.92 L (1.0-4.8) k/uL Monocytes # (Manual) 1.09 H (0-1.0) k/uL Sodium (137-145) mmol/L Creatinine (0.66-1.25) mg/dL Glucose (74-99) mg/dL POC Glucose (mg/dL) 235 H 240 H (75-99) mg/dL Calcium (8.4-10.2) mg/dL 11/23/18 11/24/18 11/24/18 Range/Units 20:58 07:21 07:48 RBC 3.06 L (4.30-5.90) m/uL Hgb 10.2 L (13.0-17.5) gm/dL Hct 29.5 L (39.0-53.0) % Lymphocytes # (Manual) (1.0-4.8) k/uL Monocytes # (Manual) (0-1.0) k/uL Sodium (137-145) mmol/L Creatinine (0.66-1.25) mg/dL Glucose (74-99) mg/dL POC Glucose (mg/dL) 255 H 271 H (75-99) mg/dL Calcium (8.4-10.2) mg/dL 11/24/18 Range/Units 07:48 RBC (4.30-5.90) m/uL Hgb (13.0-17.5) gm/dL Hct (39.0-53.0) % Lymphocytes # (Manual) (1.0-4.8) k/uL Monocytes # (Manual) (0-1.0) k/uL Sodium 133 L (137-145) mmol/L Creatinine 1.32 H (0.66-1.25) mg/dL Glucose 274 H (74-99) mg/dL POC Glucose (mg/dL) (75-99) mg/dL Calcium 8.0 L (8.4-10.2) mg/dL Microbiology - Last 24 Hours (Table) 11/21/18 17:51 Blood Culture Gram Stain - Final Blood Blood Culture - Final Escherichia coli 11/22/18 17:07 Blood Culture - Preliminary Blood No Growth after 24 hours 11/22/18 19:06 Blood Culture - Preliminary Blood No Growth after 24 hours 11/22/18 01:00 Urine Culture - Final Urine,Catheterized Assessment and Plan Assessment: #1. Acute septic shock, secondary to E. coli sepsis and bacteremia, likely source could be left lower lobe pneumonia, urine has been noted to be free of infection. Urine culture has been negative since admission. , #2. Shortness of breath present on admission, improved, likely related to sepsis and suspected left lower lobe pneumonia #3. Anion gap metabolic acidosis related to lactic acidosis, initial lactic acid was 6.0, improved down to 1.4 after fluid resuscitation #4. Leukocytosis, improved #5. Mild hyponatremia, improved with IV fluids #6. Acute kidney injury, improving with IV fluids #7. Dementia #8. COPD, currently stable #9. Former nicotine dependence, patient quit smoking 2 months ago, prior to that smoked a pack and a half a day for 50 years #10. EtOH abuse, in remission for 2 months. Patient used to drink a fifth of whiskey on a daily basis Recommendation: Continue present treatment plan including antibiotics, bronchodilators, resume his psychiatric medications including trazodone, Risperdal, Tofranil, hoping to avoid further episodes of psychosis on this admission. Continue his other cardiac meds, continue Zosyn. Patient is not quite ready for any discharge planning, hopefully he could be switched to oral medications tomorrow, and consider placement back in a longterm. Heris remains guarded, we'll continue to follow Time with Patient: Less than 30
[2018-11-24 11:30] LABS: Calcium 8.2 mg/dL (8.4-10.2); Phosphorus 2.5 mg/dL (2.5-4.5); Potassium 4.4 mmol/L (3.5-5.1)
[2018-11-24 12:30] LABS: Glucose,Whole Blood 182 mg/dL (75-99)
--- NOTE | 2018-11-24 12:33 | XR ---
EXAMINATION TYPE: XR chest 1V DATE OF EXAM: 11/24/2018 COMPARISON: Prior chest x-ray 11/23/2018 HISTORY: Pneumonia TECHNIQUE: Single frontal view of the chest is obtained. FINDINGS: Patient is rotated as on prior. Heart size is stable. No evident pneumothorax or pleural e ffusion. Right hemidiaphragm is elevated. Patchy basilar density persists. IMPRESSION: Findings similar to prior exam. Follow-up PA and lateral chest x-ray recommended. Promin ent-appearing heart size could be due to rotation.
[2018-11-24 13:05] LABS: Eosinophils # (M) 0.06 k/uL (0-0.7); Lymphocytes # (M) 0.65 k/uL (1.0-4.8); Monocytes # (M) 0.94 k/uL (0-1.0); Neutrophils # (M) 4.25 k/uL (1.3-7.7); Neutrophils % (M) 72 %; Nucleated Red Blood Cells 0 /100 WBC (0-0); Total Cells Counted 100
[2018-11-24 13:06] LABS: Poikilocytosis (M) Present
[2018-11-24 17:53] LABS: Glucose,Whole Blood 261 mg/dL (75-99)
[2018-11-24] MEDS ORDERED: traZODone HCL 100 MG TAB PO SCH (20:00)
[2018-11-24 20:40] LABS: Glucose,Whole Blood 245 mg/dL (75-99)
[2018-11-24] MEDS: MELATONIN 3 MG TABLET PO SCH (21:26)
[2018-11-24] MEDS: ASPIRIN 81 MG PO SCH (21:26)
[2018-11-24] MEDS: ATORVASTATIN 10 MG TAB PO SCH (21:26)
[2018-11-24] MEDS: CHOLECALCIFEROL 1,000 UNIT TAB PO SCH (21:26)
[2018-11-24] MEDS: ACETAMINOPHEN TAB 325 MG TAB PO PRN (23:27)
--- NOTE | 2018-11-25 00:35 | P.PN ---
Subjective Progress Note Date: 11/23/18 Principal diagnosis: Septic shock secondary to urinary tract infection and possible pneumonia Gram-negative bacilli septicemia Patient is a pleasantly demented 78-year-old male with past medical history significant for dementia, diabetes mellitus, hypertension, COPD, history of prostate cancer former alcohol abuse, and patient is a former smoker, presenting to emergency Department concerns for difficulty in breathing. Patient has been residing in assisted living at [facility]. Patient did see his primary care physician several days ago and was diagnosed with pneumonia. Patient has had increased dyspnea. Patient has had fevers. Patient denies any pain. Patient does admit to feeling fatigued. Patient has had cough, nonproductive. Chest x-ray on admission showed scattered areas of consolidative opacity, rule out multifocal bronchopneumonia versus atelectasis. Patient has been afebrile while in the hospital, was hypotensive with a blood pressure of 80/56, slightly tachycardic. Initial labs were positive for leukocytosis, white count was 19.2 Influenza screen was negative. Patient was fluid resuscitated, with 2-1/2 L of IV fluid boluses, and his current IV fluid is 0.9 normal sinus at a rate of 125 ML per hour, this morning he is hemodynamically stable. On 11/23/2018 Patient is awake and alert and pleasantly confused. Patient has been afebrile. Blood pressure is stable. Continued on antibiotics in the form of Zosyn. Blood cultures grew gram-negative bacilli. Final culture report is pending. Repeat blood cultures was ordered. Urine culture showed no growth. Patient is otherwise tolerating oral diet. Able to sit in the chair comfortably. No other acute overnight issues. Chest x-ray showed cardiomegaly. Small left pleural effusion and right basilar atelectasis can't be excluded. Current medications reviewed. Objective - Vital Signs Vital signs: Vital Signs Temp 98.3 F 11/23/18 06:00 Pulse 100 11/23/18 07:57 Resp 18 11/23/18 06:00 BP 145/81 11/23/18 06:00 Pulse Ox 94 L 11/23/18 06:00 Intake & Output 11/22/18 11/23/18 11/23/18 18:59 06:59 18:59 Intake Total 2150 600 Output Total 895 300 Balance 1255 300 Intake: IV 1250 Sodium Chloride 0.9% 1, 1250 000 ml @ 125 mls/hr IV . Q8H [facility] Rx#:[id number] Intake, IV Titration 100 100 Amount Magnesium Sulfate-D5w Pmx 100 1 gm In Dextrose/Water 1 100ml.bag @ 100 mls/hr IVPB Q1H [facility] Rx#: [id number] Piperacillin-Tazobactam 3 100 .375 gm In Sodium Chloride 0.9% 100 ml @ 25 mls/hr IVPB Q8H [facility] Rx#: [id number] Oral 800 500 Output: Urine 895 300 Other: Voiding Method Indwelling Catheter Indwelling Catheter Incontinent # Voids 3 - Exam PHYSICAL EXAMINATION: Patient is lying in the bed comfortably, no acute distress, awake alert and confused... HEENT: Normocephalic. Neck is supple. Pupils reactive. Nostrils clear. Oral cavity is moist. Ears reveal no drainage. Neck reveals no JVD, carotid bruits, or thyromegaly. CHEST EXAMINATION: Trachea is central. Symmetrical expansion. Lung whyte clear to auscultation and percussion. CARDIAC: Normal S1, S2 with no gallops. No murmurs ABDOMEN: Soft. Bowel sounds normal. No organomegaly. No abdominal bruits. Extremities: reveal no edema. No clubbing or cyanosis Neurologically awake, alert, oriented 1-2 with well-coordinated movements. No focal deficits noted. Underlying Dementia. Skin: No rash or skin lesions. Psychiatric: Coperative. Could not be assessed completely. Musculoskeletal: No joint swelling or deformity. Normal range of motion. - Labs CBC & Chem 7: 11/24/18 07:48 11/24/18 07:48 Labs: Abnormal Lab Results - Last 24 Hours (Table) 11/21/18 11/22/18 11/22/18 Range/Units 16:42 11:58 17:13 POC Glucose (mg/dL) 261 H 280 H (75-99) mg/dL Hemoglobin A1c 8.5 H (4.0-6.0) % 11/22/18 11/23/18 Range/Units 20:30 07:23 POC Glucose (mg/dL) 288 H 168 H (75-99) mg/dL Hemoglobin A1c (4.0-6.0) % Microbiology - Last 24 Hours (Table) 11/21/18 17:51 Blood Culture Gram Stain - Preliminary Blood Blood Culture - Preliminary Escherichia coli 11/21/18 17:51 Blood Culture - Final Blood 11/22/18 01:00 Urine Culture - Preliminary Urine,Catheterized Assessment and Plan Assessment: Septic shock likely secondary to multifocal pneumonia as per chest x-ray on admission. Gram-negative bacilli septicemia AG gap Metabolic acidosis secondary to lactic acidosis improved now Leukocytosis resolved. Acute kidney injury improved Dementia with occasional behavioral disturbance. COPD stable Previous history of smoking History of alcohol abuse DVT prophylaxis Plan: Patient will be continued on antibiotics in the form of Zosyn. Follow up final blood culture report and repeat blood cultures were ordered. Continue the current management and follow closely. Further recommendations based on the clinical course. Pulmonary is following. Time with Patient: Greater than 30
--- NOTE | 2018-11-25 00:37 | P.PN ---
Subjective Progress Note Date: 11/24/18 Principal diagnosis: Septic shock secondary to urinary tract infection and possible pneumonia Gram-negative bacilli septicemia Patient is a pleasantly demented 78-year-old male with past medical history significant for dementia, diabetes mellitus, hypertension, COPD, history of prostate cancer former alcohol abuse, and patient is a former smoker, presenting to emergency Department concerns for difficulty in breathing. Patient has been residing in assisted living at [facility]. Patient did see his primary care physician several days ago and was diagnosed with pneumonia. Patient has had increased dyspnea. Patient has had fevers. Patient denies any pain. Patient does admit to feeling fatigued. Patient has had cough, nonproductive. Chest x-ray on admission showed scattered areas of consolidative opacity, rule out multifocal bronchopneumonia versus atelectasis. Patient has been afebrile while in the hospital, was hypotensive with a blood pressure of 80/56, slightly tachycardic. Initial labs were positive for leukocytosis, white count was 19.2 Influenza screen was negative. Patient was fluid resuscitated, with 2-1/2 L of IV fluid boluses, and his current IV fluid is 0.9 normal sinus at a rate of 125 ML per hour, this morning he is hemodynamically stable. On 11/23/2018 Patient is awake and alert and pleasantly confused. Patient has been afebrile. Blood pressure is stable. Continued on antibiotics in the form of Zosyn. Blood cultures grew gram-negative bacilli. Final culture report is pending. Repeat blood cultures was ordered. Urine culture showed no growth. Patient is otherwise tolerating oral diet. Able to sit in the chair comfortably. No other acute overnight issues. Chest x-ray showed cardiomegaly. Small left pleural effusion and right basilar atelectasis can't be excluded. 11/24/2018 Patient denied any new complaints. Able to sit in the chair comfortably. Pleasantly confused. Patient does have underlying dementia. Discussed with family at bedside in detail. Continued on antibiotics the form of Zosyn. Repeat blood cultures are pending. Neck slight chest x-ray showed persistent basilar densities. No fever no chills. Patient is agitated at times. Otherwise no other acute overnight issues. Current medications reviewed. Objective - Vital Signs Vital signs: Vital Signs Temp 100.3 F H 11/24/18 22:42 Pulse 117 H 11/24/18 22:42 Resp 18 11/24/18 22:42 BP 148/77 11/24/18 22:42 Pulse Ox 93 L 11/24/18 22:42 Intake & Output 11/24/18 11/24/18 11/25/18 06:59 18:59 06:59 Intake Total 1100 200 Balance 1100 200 Intake: Oral 1100 200 Other: Voiding Method Incontinent Incontinent Incontinent # Voids 4 5 # Bowel Movements 0 - Exam PHYSICAL EXAMINATION: Patient is lying in the bed comfortably, no acute distress, awake alert and confused... HEENT: Normocephalic. Neck is supple. Pupils reactive. Nostrils clear. Oral cavity is moist. Ears reveal no drainage. Neck reveals no JVD, carotid bruits, or thyromegaly. CHEST EXAMINATION: Trachea is central. Symmetrical expansion. Lung whyte clear to auscultation and percussion. CARDIAC: Normal S1, S2 with no gallops. No murmurs ABDOMEN: Soft. Bowel sounds normal. No organomegaly. No abdominal bruits. Extremities: reveal no edema. No clubbing or cyanosis Neurologically awake, alert, oriented 1-2 with well-coordinated movements. No focal deficits noted. Underlying Dementia. Skin: No rash or skin lesions. Psychiatric: Coperative. Could not be assessed completely. Musculoskeletal: No joint swelling or deformity. Normal range of motion. - Labs CBC & Chem 7: 11/24/18 07:48 11/24/18 07:48 Labs: Abnormal Lab Results - Last 24 Hours (Table) 11/23/18 11/23/18 11/24/18 Range/Units 11:50 11:50 07:21 RBC 3.15 L (4.30-5.90) m/uL Hgb 10.2 L (13.0-17.5) gm/dL Hct 31.2 L (39.0-53.0) % Lymphocytes # (Manual) 0.92 L (1.0-4.8) k/uL Monocytes # (Manual) 1.09 H (0-1.0) k/uL Sodium 134 L (137-145) mmol/L Creatinine (0.66-1.25) mg/dL Glucose 230 H (74-99) mg/dL POC Glucose (mg/dL) 271 H (75-99) mg/dL Calcium 8.2 L (8.4-10.2) mg/dL 11/24/18 11/24/18 11/24/18 Range/Units 07:48 07:48 12:19 RBC 3.06 L (4.30-5.90) m/uL Hgb 10.2 L (13.0-17.5) gm/dL Hct 29.5 L (39.0-53.0) % Lymphocytes # (Manual) 0.65 L (1.0-4.8) k/uL Monocytes # (Manual) (0-1.0) k/uL Sodium 133 L (137-145) mmol/L Creatinine 1.32 H (0.66-1.25) mg/dL Glucose 274 H (74-99) mg/dL POC Glucose (mg/dL) 182 H (75-99) mg/dL Calcium 8.0 L (8.4-10.2) mg/dL 11/24/18 11/24/18 Range/Units 17:22 20:38 RBC (4.30-5.90) m/uL Hgb (13.0-17.5) gm/dL Hct (39.0-53.0) % Lymphocytes # (Manual) (1.0-4.8) k/uL Monocytes # (Manual) (0-1.0) k/uL Sodium (137-145) mmol/L Creatinine (0.66-1.25) mg/dL Glucose (74-99) mg/dL POC Glucose (mg/dL) 261 H 245 H (75-99) mg/dL Calcium (8.4-10.2) mg/dL Microbiology - Last 24 Hours (Table) 11/22/18 17:07 Blood Culture - Preliminary Blood No Growth after 48 hours 11/22/18 19:06 Blood Culture - Preliminary Blood No Growth after 48 hours 11/21/18 17:51 Blood Culture Gram Stain - Final Blood Blood Culture - Final Escherichia coli 11/22/18 01:00 Urine Culture - Final Urine,Catheterized Assessment and Plan Assessment: Septic shock likely secondary to multifocal pneumonia as per chest x-ray on admission. Gram-negative bacilli septicemia AG gap Metabolic acidosis secondary to lactic acidosis improved now Leukocytosis resolved. Acute kidney injury improved Dementia with occasional behavioral disturbance. COPD stable Previous history of smoking History of alcohol abuse DVT prophylaxis Plan: Patient will be continued on antibiotics in the form of Zosyn. Follow up final blood culture report and repeat blood cultures were ordered. Continue the current management and follow closely. Further recommendations based on the clinical course. Pulmonary is following. Time with Patient: Greater than 30
[2018-11-25 07:07] LABS: Glucose,Whole Blood 226 mg/dL (75-99)
[2018-11-25] MEDS: IPRATROPIUM-ALBUTEROL 3 ML NEB INHALATION SCH ×3 (07:22→15:42)
[2018-11-25 07:49] VITALS: RESP 16
[2018-11-25 09:22] LABS: HCT 31.5 % (39.0-53.0); HGB 10.8 gm/dL (13.0-17.5); MCH 32.9 pg (25.0-35.0); MCHC 34.4 g/dL (31.0-37.0); MCV 95.6 fL (80.0-100.0); Mean Platelet Volume 6.8; Platelet Count 207 k/uL (150-450); RBC 3.29 m/uL (4.30-5.90); RDW 12.4 % (11.5-15.5); WBC 7.6 k/uL (3.8-10.6)
--- NOTE | 2018-11-25 09:22 | XR ---
EXAMINATION TYPE: XR chest 1V DATE OF EXAM: 11/25/2018 COMPARISON: 11/24/2018 HISTORY: 78-year-old male follow-up pneumonia TECHNIQUE: Single frontal view of the chest is obtained. FINDINGS: Heart normal size. Asymmetric elevation of the right hemidiaphragm. Some patchy left basilar opacity remains. Upper and mid lungs remain clear. IMPRESSION: 1. Continued asymmetric elevation of the right hemidiaphragm. This seems to be chronic and may reflec t some diaphragmatic eventration. Correlate for the possibility of hemidiaphragmatic paralysis. 2. Continued patchy left basilar atelectasis or infiltrate.
[2018-11-25 09:40] LABS: Calcium 8.5 mg/dL (8.4-10.2); Magnesium 1.7 mg/dL (1.6-2.3); Phosphorus 3.7 mg/dL (2.5-4.5); Potassium 4.2 mmol/L (3.5-5.1)
[2018-11-25] MEDS: HEPARIN SODIUM,PORCINE 5,000 UNIT/ML 1 ML VIAL SQ SCH (10:01)
[2018-11-25] MEDS: FOLIC ACID 1 MG TAB PO SCH (10:01)
[2018-11-25] MEDS: METOPROLOL TARTRATE 25 MG TAB PO SCH (10:01)
[2018-11-25] MEDS: PANTOPRAZOLE 40 MG TABLET PO SCH (10:01)
[2018-11-25] MEDS: PIPERACILLIN-TAZOBACTAM 3.375 GM in SODIUM CHLORIDE 0.9% 100 ML IVPB SCH ×2 (10:02→15:15)
[2018-11-25] MEDS: INSULIN ASPART 100 UNIT/ML 1 ML 10 ML VIAL SQ SCH ×2 (10:02→12:40)
[2018-11-25] MEDS: risperiDONE 0.5 MG TAB PO SCH (10:03)
[2018-11-25] MEDS: IMIPRAMINE 10 MG TAB PO SCH (10:03)
[2018-11-25] MEDS: SODIUM CHLORIDE 0.9% 1,000 ML IV SCH (10:59)
[2018-11-25 12:20] LABS: Glucose,Whole Blood 222 mg/dL (75-99)
[2018-11-25 12:31] LABS: Eosinophils # (M) 0.38 k/uL (0-0.7); Lymphocytes # (M) 1.44 k/uL (1.0-4.8); Monocytes # (M) 0.68 k/uL (0-1.0); Neutrophils # (M) 5.09 k/uL (1.3-7.7); Neutrophils % (M) 67 %; Nucleated Red Blood Cells 0 /100 WBC (0-0); Total Cells Counted 100
[2018-11-25 14:21] VITALS: BP 110/64; TEMP 98.4
--- NOTE | 2018-11-25 14:51 | P.PN ---
Subjective Progress Note Date: 11/25/18 Principal diagnosis: Acute gram-negative sepsis, gram-negative bacteremia secondary to E. coli, possible sources could be the lungs or urine This is a 78-year-old male patient of Dr. Garcia with past medical history significant for dementia, diabetes mellitus, hypertension, COPD, history of prostate cancer former alcohol abuse, and patient is a former smoker. 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 Currently resides in an adult foster fpc. Poor historian. Patient was brought into the emergency department on 11/21/2018 or difficulty breathing, altered mentation, and fever. Patient has been very fatigued, did have a nonproductive cough. Patient was being treated on an outpatient basis for pneumonia. Chest x-ray on admission showed scattered areas of consolidative opacity, rule out multifocal bronchopneumonia versus atelectasis. Patient has been afebrile while in the hospital, was hypotensive with a blood pressure of 80/56, slightly tachycardic. Initial labs were positive for leukocytosis, white count was 19.2, hemoglobin was 11.7, sodium was 130, potassium is 4.4, chloride was 96, CO2 was 19, BUN was 30, creatinine was 2.05, plasma lactic acid was 6.0, urinalysis did show moderate leuks, 26 white blood cell counts, in clumps, occasional bacteria. Influenza screen was negative. Patient was fluid resuscitated, with 2-1/2 L of IV fluid boluses, and his current IV fluid is 0.9 normal sinus at a rate of 125 ML per hour, this morning he is hemodynamically stable, in sinus mechanism, blood pressure is 140/82, pulse ox on 2 L per nasal cannula was 95%. Afebrile. This morning's chest x-ray showed no acute pulmonary process, as read by radiology, but reviewing the film with Dr. Moore, cannot totally rule out a retrocardiac infiltrate. Patient is on a combination of Levaquin and Zosyn, he never did require vasopressor support, Myles catheter is in place, and patient is nonoliguric producing urine in the order of 80-200 ML per hour. Patient is pleasantly confused, but he is oriented to person and place, cooperative. No cough, no chest congestion, lungs are essentially clear to auscultation, blood and urine cultures been collected and sent, and are pending at this time. Patient was reevaluated today on 11/24/2018, he is presently on a regular medical floor, relatively asymptomatic, patient was agitated last night, he did however receive 1 dose of Ativan, and he is much calm her today. Actually when I examined him today the patient was quite sleepy, and in no distress. He did have a chest x-ray yesterday which showed no evidence of congestive heart failure, but there is atelectasis is noted of the left base, may be an area of consolidation/pneumonia. Patient did receive a dose of Lasix yesterday for increased shortness of breath. However at the time he was extremely agitated. And the patient was developing what seems to be . Chest x-ray this morning is also showing some atelectasis at the bases mostly at the left base, retrocardiac area. Labs were noted to be relatively normal. His CBC is normal. Hemoglobin is 10.2 however. BUN is 60 creatinine is 1.3, improving compared to baseline creatinine on admission was 2.05 On 11/25/2018 patient seen in follow-up on medical surgical floor. He is resting comfortably in bed, in no acute distress, denies any difficulty breathing, denies any chest pain, no fever or chills, room air pulse ox is 92%, hemodynamics patient stable, lung sounds clear to auscultation. Patient's blood culture from 11/21/2018 was found to be E. coli resistant only to trimethoprim/sulfamethoxazole. Patient is on IV Zosyn. Follow-up chest x-ray today showed asymmetric elevation of the right hemidiaphragm, chronic. Continue patchy left basilar atelectasis. From pulmonary perspective patient is stable, consider switching to oral antibiotics, and patient is stable for discharge home today. Objective - Vital Signs Vital signs: Vital Signs Temp 98.4 F 11/25/18 14:12 Pulse 77 11/25/18 14:12 Resp 16 11/25/18 14:12 BP 110/64 11/25/18 14:12 Pulse Ox 92 L 11/25/18 14:12 Intake & Output 11/24/18 11/25/18 11/25/18 18:59 06:59 18:59 Intake Total 200 1000 Output Total 400 Balance 200 -400 1000 Intake: IV 300 Sodium Chloride 0.9% 1, 300 000 ml @ 50 mls/hr IV . Q20H YARITZA Rx#:[id number] Intake, IV Titration 100 Amount Piperacillin-Tazobactam 3 100 .375 gm In Sodium Chloride 0.9% 100 ml @ 25 mls/hr IVPB Q8H YARITZA Rx#: [id number] Oral 200 600 Output: Urine 400 Other: Voiding Method Incontinent Incontinent Incontinent # Voids 5 1 3 - Exam GENERAL EXAM: Alert, pleasantly confused, 78-year-old white male, oriented to self and place, comfortable in no apparent distress. HEAD: Normocephalic/atraumatic. EYES: Normal reaction of pupils, equal size. Conjunctiva pink, sclera white. NOSE: Clear with pink turbinates. THROAT: No erythema or exudates. NECK: No masses, no JVD, no thyroid enlargement, no adenopathy. CHEST: No chest wall deformity. Symmetrical expansion. LUNGS: Equal air entry with no crackles, wheeze, rhonchi or dullness. CVS: Regular rate and rhythm, normal S1 and S2, no gallops, no murmurs, no rubs ABDOMEN: Soft, nontender. No hepatosplenomegaly, normal bowel sounds, no guarding or rigidity. EXTREMITIES: No clubbing, no edema, no cyanosis, 2+ pulses and upper and lower extremities. MUSCULOSKELETAL: Muscle strength and tone normal. SPINE: No scoliosis or deformity SKIN: No rashes CENTRAL NERVOUS SYSTEM: Alert and oriented -3. No focal deficits, tone is normal in all 4 extremities. PSYCHIATRIC: Alert and oriented -3. Appropriate affect. Intact judgment and insight. - Labs CBC & Chem 7: 11/25/18 08:15 11/25/18 08:15 Labs: Abnormal Lab Results - Last 24 Hours (Table) 11/24/18 11/24/18 11/25/18 Range/Units 17:22 20:38 06:55 RBC (4.30-5.90) m/uL Hgb (13.0-17.5) gm/dL Hct (39.0-53.0) % Creatinine (0.66-1.25) mg/dL Glucose (74-99) mg/dL POC Glucose (mg/dL) 261 H 245 H 226 H (75-99) mg/dL 11/25/18 11/25/1811/25/19 Range/Units 08:15 08:15 11:34 RBC 3.29 L (4.30-5.90) m/uL Hgb 10.8 L (13.0-17.5) gm/dL Hct 31.5 L (39.0-53.0) % Creatinine 1.30 H (0.66-1.25) mg/dL Glucose 220 H (74-99) mg/dL POC Glucose (mg/dL) 222 H (75-99) mg/dL Microbiology - Last 24 Hours (Table) 11/22/18 17:07 Blood Culture - Preliminary Blood No Growth after 48 hours 11/22/18 19:06 Blood Culture - Preliminary Blood No Growth after 48 hours Assessment and Plan Plan: Assessment: #1. Acute septic shock, secondary to E. coli sepsis and bacteremia, likely source could be left lower lobe pneumonia, or urinary tract infection, although urine culture did not show any growth. #2. Shortness of breath present on admission, improved, likely related to sepsis and suspected left lower lobe pneumonia #3. Anion gap metabolic acidosis related to lactic acidosis, initial lactic acid was 6.0, improved down to 1.4 after fluid resuscitation #4. Leukocytosis, improved #5. Mild hyponatremia, improved with IV fluids #6. Acute kidney injury, improving with IV fluids #7. Dementia #8. COPD, currently stable #9. Former nicotine dependence, patient quit smoking 2 months ago, prior to that smoked a pack and a half a day for 50 years #10. EtOH abuse, in remission for 2 months. Patient used to drink a fifth of whiskey on a daily basis Plan: Patient is stable, no fever or chills, hemodynamically patient is stable, he is on room air, denies any specific complaints, increase activity as tolerated, consider switching to oral antibiotics, and patient is discharged home today. Follow-up blood cultures were negative. Patient will need to see Dr. Young in the office in one week I performed a history & physical examination of the patient and discussed their management with my nurse practitioner, Dorene Epstein. I reviewed the nurse practitioner's note and agree with the documented findings and plan of care. Lung sounds are positive for clear breath sounds. The findings and the impression was discussed with the patient. I attest to the documentation by the nurse practitioner. Time with Patient: Less than 30
[2018-11-25 15:53] VITALS: PULSE 80
--- NOTE | 2018-11-25 23:34 | P.DS ---
Providers Date of admission: 11/21/18 19:39 Expected date of discharge: 11/25/18 Attending physician: Chemo Garcia Consults: 11/21/18 19:40 Consult Physician Urgent Consulting Provider: Sylvia Moore Consult Reason/Comments: Critical care Do you want consulting provider notified?: Already Contacted Primary care physician: Chemo Garcia - Discharge Diagnosis(es) (1) Bronchopneumonia Status: Acute (2) Septic shock Status: Resolved (3) Alcohol abuse Status: Chronic (4) Chronic abdominal pain Status: Resolved (5) Diabetes Status: Chronic (6) Esophagitis Status: Resolved (7) Symptomatic cholelithiasis Status: Resolved (8) UTI (urinary tract infection) Status: Acute Hospital Course: This is a 78-year-old white male with sudden onset of acute sepsis from pneumonia he is treated with appropriate antibiotics during his hospital stay was uneventful he was transferred to general medical floor. He was cleared by pulmonary for discharge he is getting continued on a 5 day more of antibiotics he can retain return to his assisted living facility Patient Condition at Discharge: Fair Plan - Discharge Summary Discharge Rx Participant: No New Discharge Prescriptions: New Azithromycin [Zithromax Z-pack] 0 mg PO DIRECTED #6 tab Continue Imipramine [Tofranil] 10 mg PO TID@0800,1400,1999 Atorvastatin [Lipitor] 10 mg PO HS@1999 Folic Acid 1 mg PO DAILY@1400 Cholecalciferol [Vitamin D3] 2,000 unit PO HS@1999 Aspirin [Adult Low Dose Aspirin EC] 81 mg PO HS@1999 Pantoprazole Sodium 40 mg PO DAILY@0800 Metoprolol Tartrate 25 mg PO BID@0800,1999 Melatonin 3 mg PO HS@1999 Oseltamivir [Tamiflu] 75 mg PO DAILY@1999 Azithromycin [Zithromax Z-pack] See Taper PO DIRECTED Amoxic-Pot Clav 875-125Mg [Augmentin 875-125] 1 tab PO BID@0800,1600 Acetaminophen [Tylenol] 650 mg PO Q4H PRN PRN Reason: Pain traZODone HCL 50 mg PO HS@1999 risperiDONE 0.5 mg PO TID Insulin Glargine [Lantus] 10 unit SQ HS@1999 Discharge Medication List Atorvastatin [Lipitor] 10 mg PO HS@199905/15/16 [History] Folic Acid 1 mg PO DAILY@1400 05/15/16 [History] Imipramine [Tofranil] 10 mg PO TID@0800,1400,199905/15/16 [History] Aspirin [Adult Low Dose Aspirin EC] 81 mg PO HS@199909/25/18 [History] Cholecalciferol [Vitamin D3] 2,000 unit PO HS@199909/25/18 [History] Metoprolol Tartrate 25 mg PO BID@0800,199909/25/18 [History] Pantoprazole Sodium 40 mg PO DAILY@0800 09/25/18 [History] Melatonin 3 mg PO HS@199910/13/18 [History] Acetaminophen [Tylenol] 650 mg PO Q4H PRN 11/21/18 [History] Amoxic-Pot Clav 875-125Mg [Augmentin 875-125] 1 tab PO BID@0800,1600 11/21/18 [ History] Azithromycin [Zithromax Z-pack] See Taper PO DIRECTED 11/21/18 [History] Insulin Glargine [Lantus] 10 unit SQ HS@199911/21/18 [History] Oseltamivir [Tamiflu] 75 mg PO DAILY@199911/21/18 [History] risperiDONE 0.5 mg PO TID 11/21/18 [History] traZODone HCL 50 mg PO HS@199911/21/18 [History] Azithromycin [Zithromax Z-pack] 0 mg PO DIRECTED #6 tab 11/25/18 [Rx] Follow up Appointment(s)/Referral(s): Chemo Garcia DO [Primary Care Provider] - 2 Weeks (please call for appointment, office currently busy.) Len Young DO [Doctor of Osteopathic Medicine] - 1 Week Patient Instructions/Handouts: Viral Pneumonia (DC) Activity/Diet/Wound Care/Special Instructions: Per BRUCE Williamson, patient will need a WC van ride home. Discharge Disposition: HOME SELF-CARE
== END 2018-11-25 16:47 | disposition home or self-care (01) | DRG 871 ==
LOC: EC 16:23 → 3SCARD 19:39 → 2SICU 19:58 → 4MS4W 11-22 22:23
PROVIDERS: ADMIT Family Medicine; ATTEND Family Medicine
PROC: 02HV33Z Insertion of Infusion Device into Superior Vena Cava, Percutaneous Approach (ICD-10-PCS; principal; 2018-11-21)
DX: A41.51 Sepsis due to Escherichia coli [E. coli] (principal); J18.0 Bronchopneumonia, unspecified organism; R65.21 Severe sepsis with septic shock; E87.1 Hypo-osmolality and hyponatremia; E87.2 Acidosis; F03.91 Unspecified dementia, unspecified severity, with behavioral disturbance; F05 Delirium due to known physiological condition; J44.0 Chronic obstructive pulmonary disease with (acute) lower respiratory infection; J98.11 Atelectasis; N17.9 Acute kidney failure, unspecified; N39.0 Urinary tract infection, site not specified; J90 Pleural effusion, not elsewhere classified; E11.9 Type 2 diabetes mellitus without complications; F32.9 Major depressive disorder, single episode, unspecified; G89.29 Other chronic pain; I11.9 Hypertensive heart disease without heart failure; K21.0 Gastro-esophageal reflux disease with esophagitis; K80.20 Calculus of gallbladder without cholecystitis without obstruction; G43.909 Migraine, unspecified, not intractable, without status migrainosus; N42.9 Disorder of prostate, unspecified; R29.6 Repeated falls; R32 Unspecified urinary incontinence; Z79.4 Long term (current) use of insulin; Z79.82 Long term (current) use of aspirin; Z79.899 Other long term (current) drug therapy; Z88.8 Allergy status to other drugs, medicaments and biological substances; Z85.46 Personal history of malignant neoplasm of prostate; Z87.891 Personal history of nicotine dependence; Z87.01 Personal history of pneumonia (recurrent); Z87.11 Personal history of peptic ulcer disease; Z90.49 Acquired absence of other specified parts of digestive tract; Z80.9 Family history of malignant neoplasm, unspecified; Z83.79 Family history of other diseases of the digestive system
CPT/HCPCS: 36415; 36556; 71045; 71046; 80048; 80053; 81001; 83036; 83605; 83735; 84100; 85025; 85610; 85730; 87040; 87077; 87086; 87186; 87502; 93005; 94640; 96360; 96365; 96366; 99291

== ENCOUNTER 2018-12-01 11:04 | Emergency (ER) | payer MEDICARE, BC ==
[2018-12-01 11:32] VITALS: BP 150/80; PULSE 80; RESP 18; TEMP 98.6
--- NOTE | 2018-12-01 11:59 | ED ---
General Adult HPI - General Chief complaint: Urogenital Stated complaint: Urogenital Time Seen by Provider: 12/01/18 11:16 Source: patient, EMS, RN notes reviewed, old records reviewed Mode of arrival: EMS Limitations: altered mental status, physical limitation - History of Present Illness Initial comments: 78-year-old male history of dementia presenting from assisted living facility with urinary incontinence, and testicular pain. Patient states he had bilateral testicular pain which began this morning. He also had several episodes of incontinence. Unknown if this is baseline for the patient. No hematuria. No reported fever. Patient denies subjective fever and chills. Denies nausea vomiting. States he had a normal bowel movement today. Denies abdominal pain. States his pain is improved at this time. There was concern by staff at the assisted living facility for testicular torsion or UTI. Patient denies any significant complaints the time my evaluation. - Related Data Home Medications Medication Instructions Recorded Confirmed Atorvastatin [Lipitor] 10 mg PO HS@199905/15/16 12/01/18 Folic Acid 1 mg PO DAILY@159905/15/16 12/01/18 Imipramine [Tofranil] 10 mg PO TID@1000,1599,199905/15/16 12/01/18 Aspirin [Adult Low Dose Aspirin EC] 81 mg PO HS@199909/25/18 12/01/18 Cholecalciferol [Vitamin D3] 2,000 unit PO HS@199909/25/18 12/01/18 Metoprolol Tartrate 12.5 mg PO BID@999,199909/25/18 12/01/18 Pantoprazole Sodium 40 mg PO DAILY@1000 09/25/18 12/01/18 Melatonin 3 mg PO HS@199910/13/18 12/01/18 Acetaminophen [Tylenol] 650 mg PO Q4H PRN 11/21/18 12/01/18 Amoxic-Pot Clav 875-125Mg 1 tab PO BID@0800,1600 11/21/18 12/01/18 [Augmentin 875-125] Insulin Glargine [Lantus] 10 unit SQ HS@199911/21/18 12/01/18 Oseltamivir [Tamiflu] 75 mg PO DAILY@199911/21/18 12/01/18 risperiDONE 0.5 mg PO TID 11/21/18 12/01/18 traZODone HCL 50 mg PO HS@2000 11/21/18 12/01/18 Allergies Allergy/AdvReac Type Severity Reaction Status Date / Time lorazepam AdvReac Hallucinati Verified 12/01/18 11:37 ons zolpidem tartrate AdvReac Hallucinati Verified 12/01/18 11:37 [From Sarah] ons Review of Systems ROS Statement: Those systems with pertinent positive or pertinent negative responses have been documented in the HPI. ROS Other: All systems not noted in ROS Statement are negative. Past Medical History Past Medical History: Cancer, Dementia, Diabetes Mellitus, GERD/Reflux, Hypertension, Memory Impairment, Pneumonia, Prostate Disorder Additional Past Medical History / Comment(s): Prostate cancer. 2015 bleeding ulcer. migraines, uses walker when up. multiple falls at home History of Any Multi-Drug Resistant Organisms: None Reported Past Surgical History: Cholecystectomy, Orthopedic Surgery, Prostate Surgery Additional Past Surgical History / Comment(s): knee left, right leg, back. prostate removed.lt elbow Past Anesthesia/Blood Transfusion Reactions: No Reported Reaction Past Psychological History: Depression Smoking Status: Former smoker Past Alcohol Use History: Daily, None Reported Past Drug Use History: None Reported - Past Family History Father Additional Family Medical History / Comment(s): ulcers Mother History Unknown: Yes Additional Family Medical History / Comment(s): migraines Brother(s) Family Medical History: Cancer Additional Family Medical History / Comment(s): Brain General Exam Limitations: altered mental status, physical limitation General appearance: alert, in no apparent distress Head exam: Present: atraumatic, normocephalic Eye exam: Present: normal appearance, PERRL ENT exam: Present: normal exam, mucous membranes moist Neck exam: Present: normal inspection. Absent: tenderness, meningismus Respiratory exam: Present: normal lung sounds bilaterally. Absent: respiratory distress, wheezes Cardiovascular Exam: Present: regular rate, normal rhythm GI/Abdominal exam: Present: soft. Absent: distended, tenderness, guarding exam: Present: normal inspection, vertical testicular lie, other (Phimosis). Absent: testicular tenderness, urethral discharge, scrotal swelling Neurological exam: Present: alert. Absent: motor sensory deficit Skin exam: Present: warm, dry, intact. Absent: cyanosis, diaphoretic Course Vital Signs 12/01/18 11:28 Temperature 98.6 F Pulse Rate 80 Respiratory 18 Rate Blood Pressure 150/80 O2 Sat by Pulse 97 Oximetry Medical Decision Making - Medical Decision Making 70-year-old male presenting with urinary incontinence, concern for UTI, scrotal pain, concern for torsion or testicular pathology. Exam unremarkable, patient well-appearing stable vitals. No abdominal pain. Scrotal exam is unremarkable patient does have phimosis, no paraphimosis. Ultrasound obtained, negative for acute pathology, there is mild bilateral hydroceles, no torsion. Urinalysis negative for infection, 4+ glucose, patient does have history of diabetes on insulin. Patient is well-appearing, stable for discharge. Will be discharged back to assisted living facility. - Lab Data Lab Results 12/01/18 Range/Units 12:15 Urine Color Light Yellow Urine Appearance Clear (Clear) Urine pH 7.0 (5.0-8.0) Ur Specific [place] 1.020 (1.001-1.035) Urine Protein Negative (Negative) Urine Glucose (UA) 4+ H (Negative) Urine Ketones Negative (Negative) Urine Blood Negative (Negative) Urine Nitrite Negative (Negative) Urine Bilirubin Negative (Negative) Urine Urobilinogen <2.0 (<2.0) mg/dL Ur Leukocyte Esterase Negative (Negative) Disposition Clinical Impression: Diabetes, Hydrocele, bilateral Disposition: ADMITTED IP TO THIS [facility] Condition: Fair Instructions (If sedation given, give patient instructions): Hydrocele (ED), Testicle Pain (ED) Is patient prescribed a controlled substance at d/c from ED?: No Referrals: Chemo Garcia DO [Primary Care Provider] - 1-2 days Time of Disposition: 13:09
[2018-12-01 12:43] LABS: Appearance,Urine Clear (Clear); Bilirubin,Urine Negative (Negative); Blood,Urine Negative (Negative); Color,Urine Light Yellow; Glucose,Urine (UA) 4+ (Negative); Ketones,Urine Negative (Negative); Leukocyte Esterase,Urine Negative (Negative); Nitrite,Urine Negative (Negative); Protein,Urine Negative (Negative); Urobilinogen,Urine <2.0 mg/dL (<2.0)
--- NOTE | 2018-12-01 12:57 | US ---
EXAMINATION TYPE: US scrotum with doppler. Grayscale and color Doppler Duplex imaging performed of t tony scrotum. DATE OF EXAM: 12/01/2018 COMPARISON: NONE CLINICAL HISTORY: Pain. bilateral testicle pain, history of prostatectomy. EXAM MEASUREMENTS: TESTICLES: Right Testicle: 2.6 x 1.3 x 2.1 cm Left Testicle: 2.6 x 1.1 x 1.9 cm EPIDIDYMIS HEAD: Right Epididymis: 1.1 x 0.9 cm Left Epididymis: 0.9 x 0.7 cm Doppler performed to assess for testicular vascularity; good bilateral color flow and waveforms are s een. There is no evidence of testicular torsion. Presence of hydroceles: small amount of fluid noted around testicles bilaterally. Presence of varicoceles: none appreciated IMPRESSION: 1. Mild hydroceles are noted.
== END 2018-12-01 14:08 | disposition home or self-care (01) ==
LOC: EC 11:04
DX: N43.3 Hydrocele, unspecified (principal); E11.9 Type 2 diabetes mellitus without complications; N47.1 Phimosis; R32 Unspecified urinary incontinence; I10 Essential (primary) hypertension; K21.9 Gastro-esophageal reflux disease without esophagitis; F03.90 Unspecified dementia, unspecified severity, without behavioral disturbance, psychotic disturbance, mood disturbance, and anxiety; F32.9 Major depressive disorder, single episode, unspecified; Z87.891 Personal history of nicotine dependence; Z79.4 Long term (current) use of insulin; Z79.82 Long term (current) use of aspirin; Z79.899 Other long term (current) drug therapy; Z85.46 Personal history of malignant neoplasm of prostate; Z90.79 Acquired absence of other genital organ(s)
CPT/HCPCS: 76870; 81003; 93975; 99285

== ENCOUNTER 2021-06-15 21:01 | Inpatient (IN) | payer MEDICARE, BC ==
--- NOTE | 2021-06-15 21:39 | ED ---
General Adult HPI - General Chief complaint: Shortness of Breath Stated complaint: SOB, Weakness Time Seen by Provider: 06/15/21 21:07 Source: patient Mode of arrival: EMS Limitations: altered mental status - History of Present Illness Initial comments: 's patient is an 81-year-old man sent from adult foster assisted to have evaluation for generalized weakness and change in respiratory status. When I interview the patient, he states "I don't feel well." But he is not able to elaborate on that. The patient is not able to give much history. He denies pain, he denies dyspnea. Per the report from EMS, he has had generalized weakness and fatigue. He seemed to be having some trouble with breathing at the [facility] home, but the patient denies feeling short of breath here. -: unknown Improves with: none Worsens with: none Associated Symptoms: shortness of breath Treatments Prior to Arrival: none - Related Data Home Medications Medication Instructions Recorded Confirmed Atorvastatin [Lipitor] 10 mg PO HS@199905/15/16 12/01/18 Folic Acid 1 mg PO DAILY@159905/15/16 12/01/18 Imipramine [Tofranil] 10 mg PO TID@1000,1599,199905/15/16 12/01/18 Aspirin [Adult Low Dose Aspirin EC] 81 mg PO HS@199909/25/18 12/01/18 Cholecalciferol [Vitamin D3 (25 2,000 unit PO HS@199909/25/18 12/01/18 Mcg = 1000 Iu)] Metoprolol Tartrate 12.5 mg PO BID@999,199909/25/18 12/01/18 Pantoprazole Sodium 40 mg PO DAILY@99909/25/18 12/01/18 Melatonin 3 mg PO HS@199910/13/18 12/01/18 Acetaminophen [Tylenol] 650 mg PO Q4H PRN 11/21/18 12/01/18 Amoxic-Pot Clav 875-125Mg 1 tab PO BID@0800,1600 11/21/18 12/01/18 [Augmentin 875-125] Insulin Glargine [Lantus] 10 unit SQ HS@199911/21/18 12/01/18 Oseltamivir [Tamiflu] 75 mg PO DAILY@199911/21/18 12/01/18 risperiDONE 0.5 mg PO TID 11/21/18 12/01/18 traZODone HCL 50 mg PO HS@2000 11/21/18 12/01/18 Allergies Allergy/AdvReac Type Severity Reaction Status Date / Time lorazepam AdvReac Hallucinati Verified 06/15/21 23:54 ons zolpidem tartrate AdvReac Hallucinati Verified 06/15/21 23:54 [From Ambien] ons Review of Systems ROS Statement: Those systems with pertinent positive or pertinent negative responses have been documented in the HPI. ROS Other: All systems not noted in ROS Statement are negative. Limitations: ROS unobtainable due to patients medical condition Respiratory: Denies: dyspnea Cardiovascular: Denies: chest pain Gastrointestinal: Denies: abdominal pain Neurological: Denies: headache Past Medical History Past Medical History: Cancer, Dementia, Diabetes Mellitus, GERD/Reflux, Hypertension, Memory Impairment, Pneumonia, Prostate Disorder Additional Past Medical History / Comment(s): Prostate cancer. 2015 bleeding ulcer. migraines, uses walker when up. multiple falls at home History of Any Multi-Drug Resistant Organisms: None Reported Past Surgical History: Cholecystectomy, Orthopedic Surgery, Prostate Surgery Additional Past Surgical History / Comment(s): knee left, right leg, back. prostate removed.lt elbow Past Anesthesia/Blood Transfusion Reactions: No Reported Reaction Past Psychological History: Depression Smoking Status: Current every day smoker Past Alcohol Use History: None Reported Past Drug Use History: None Reported - Past Family History Father Additional Family Medical History / Comment(s): ulcers Mother History Unknown: Yes Additional Family Medical History / Comment(s): migraines Brother(s) Family Medical History: Cancer Additional Family Medical History / Comment(s): Brain General Exam Limitations: altered mental status General appearance: alert Head exam: Present: atraumatic, normocephalic Eye exam: Present: normal appearance. Absent: scleral icterus, conjunctival inj ection ENT exam: Present: mucous membranes dry Neck exam: Present: normal inspection, full ROM. Absent: meningismus Respiratory exam: Present: rhonchi. Absent: respiratory distress, wheezes, rales, stridor, accessory muscle use, decreased breath sounds, prolonged expiratory Cardiovascular Exam: Present: normal rhythm, tachycardia, normal heart sounds. Absent: systolic murmur, diastolic murmur, rubs, gallop GI/Abdominal exam: Present: soft, normal bowel sounds. Absent: distended, tenderness, guarding, rebound, rigid, mass Extremities exam: Present: normal inspection, normal capillary refill. Absent: pedal edema (There is trace edema at the right ankle), calf tenderness Back exam: Present: normal inspection Neurological exam: Present: alert Skin exam: Present: warm, dry, intact, normal color. Absent: rash Course Vital Signs 06/15/21 06/15/21 06/15/21 21:02 21:09 22:00 Temperature 101.6 F H Pulse Rate 114 H 115 H Respiratory 20 24 24 Rate Blood Pressure 176/125 150/107 O2 Sat by Pulse 97 95 Oximetry 06/15/21 06/16/21 06/16/21 23:00 00:00 01:00 Temperature Pulse Rate 108 H 112 H 114 H Respiratory 20 20 24 Rate Blood Pressure 147/96 155/96 121/95 O2 Sat by Pulse 95 95 95 Oximetry 06/16/21 06/16/21 06/16/21 02:14 03:15 03:24 Temperature 98.9 F Pulse Rate 116 H 122 H 133 H Respiratory 20 25 H 22 Rate Blood Pressure 145/99 O2 Sat by Pulse 96 Oximetry 06/16/21 06/16/21 03:25 06:15 Temperature 99.6 F Pulse Rate 110 H Respiratory 24 Rate Blood Pressure 155/98 O2 Sat by Pulse 99 95 Oximetry EKG Findings - EKG Comments: EKG Findings:: Possible old inferior infarct. - EKG Results: EKG: interpreted by ERMD, sinus rhythm, normal axis EKG shows: tachycardia (Rate 136 bpm) - Blocks, Ewing, Hypertrophy, ST Abn: AV and intraventricular conduction: 1 AV block Medical Decision Making - Medical Decision Making Patient is an 81-year-old man sent from adult foster care to have evaluation for change in respiratory status. Patient denies complaints here but does have mild leukocytosis and slightly elevated lactic acid. Patient will be observed overnight pending initial culture result. He is resting comfortably at reevaluation. - Lab Data Result diagrams: 06/15/21 21:41 06/15/21 21:41 Lab Results 06/15/21 06/15/21 06/15/21 Range/Units 21:41 21:41 21:41 WBC 12.7 H (3.8-10.6) k/uL RBC 4.31 (4.30-5.90) m/uL Hgb 13.6 (13.0-17.5) gm/dL Hct 40.8 (39.0-53.0) % MCV 94.6 (80.0-100.0) fL MCH 31.6 (25.0-35.0) pg MCHC 33.4 (31.0-37.0) g/dL RDW 14.5 (11.5-15.5) % Plt Count 274 (150-450) k/uL MPV 7.3 Neutrophils % 78 % Lymphocytes % 10 % Monocytes % 8 % Eosinophils % 1 % Basophils % 1 % Neutrophils # 9.9 H (1.3-7.7) k/uL Lymphocytes # 1.2 (1.0-4.8) k/uL Monocytes # 1.1 H (0-1.0) k/uL Eosinophils # 0.1 (0-0.7) k/uL Basophils # 0.1 (0-0.2) k/uL Hypochromasia Slight Poikilocytosis Slight PT 9.8 (9.0-12.0) sec INR 0.9 (<1.2) APTT 22.3 (22.0-30.0) sec Sodium 133 L (137-145) mmol/L Potassium 4.5 (3.5-5.1) mmol/L Chloride 99 (98-107) mmol/L Carbon Dioxide 23 (22-30) mmol/L Anion Gap 11 mmol/L BUN 19 (9-20) mg/dL Creatinine 1.15 (0.66-1.25) mg/dL Est GFR (CKD-EPI)AfAm 69 (>60 ml/min/1.73 sqM) Est GFR (CKD-EPI)NonAf 60 (>60 ml/min/1.73 sqM) Glucose 303 H (74-99) mg/dL Lactic Ac Sepsis Rflx Plasma Lactic Acid Gene (0.7-2.0) mmol/L Calcium 9.2 (8.4-10.2) mg/dL Magnesium 1.7 (1.6-2.3) mg/dL Total Bilirubin 0.4 (0.2-1.3) mg/dL AST 26 (17-59) U/L ALT 19 (4-49) U/L Alkaline Phosphatase 62 (38-126) U/L Troponin I (0.000-0.034) ng/mL NT-Pro-B Natriuret Pep pg/mL Total Protein 6.8 (6.3-8.2) g/dL Albumin 4.1 (3.5-5.0) g/dL Urine Color Urine Appearance (Clear) Urine pH (5.0-8.0) Ur Specific [place] (1.001-1.035) Urine Protein (Negative) Urine Glucose (UA) (Negative) Urine Ketones (Negative) Urine Blood (Negative) Urine Nitrite (Negative) Urine Bilirubin (Negative) Urine Urobilinogen (<2.0) mg/dL Ur Leukocyte Esterase (Negative) Urine RBC (0-5) /hpf Urine WBC (0-5) /hpf Ur Squamous Epith Cells (0-4) /hpf Urine Mucus (None) /hpf Coronavirus (PCR) (Not Detectd) 06/15/21 06/15/21 06/15/21 Range/Units 21:41 21:41 21:41 WBC (3.8-10.6) k/uL RBC (4.30-5.90) m/uL Hgb (13.0-17.5) gm/dL Hct (39.0-53.0) % MCV (80.0-100.0) fL MCH (25.0-35.0) pg MCHC (31.0-37.0) g/dL RDW (11.5-15.5) % Plt Count (150-450) k/uL MPV Neutrophils % % Lymphocytes % % Monocytes % % Eosinophils % % Basophils % % Neutrophils # (1.3-7.7) k/uL Lymphocytes # (1.0-4.8) k/uL Monocytes # (0-1.0) k/uL Eosinophils # (0-0.7) k/uL Basophils # (0-0.2) k/uL Hypochromasia Poikilocytosis PT (9.0-12.0) sec INR (<1.2) APTT (22.0-30.0) sec Sodium (137-145) mmol/L Potassium (3.5-5.1) mmol/L Chloride (98-107) mmol/L Carbon Dioxide (22-30) mmol/L Anion Gap mmol/L BUN (9-20) mg/dL Creatinine (0.66-1.25) mg/dL Est GFR (CKD-EPI)AfAm (>60 ml/min/1.73 sqM) Est GFR (CKD-EPI)NonAf (>60 ml/min/1.73 sqM) Glucose (74-99) mg/dL Lactic Ac Sepsis Rflx Plasma Lactic Acid Gene 2.3 H* (0.7-2.0) mmol/L Calcium (8.4-10.2) mg/dL Magnesium (1.6-2.3) mg/dL Total Bilirubin (0.2-1.3) mg/dL AST (17-59) U/L ALT (4-49) U/L Alkaline Phosphatase (38-126) U/L Troponin I 0.016 (0.000-0.034) ng/mL NT-Pro-B Natriuret Pep 417 pg/mL Total Protein (6.3-8.2) g/dL Albumin (3.5-5.0) g/dL Urine Color Urine Appearance (Clear) Urine pH (5.0-8.0) Ur Specific [place] (1.001-1.035) Urine Protein (Negative) Urine Glucose (UA) (Negative) Urine Ketones (Negative) Urine Blood (Negative) Urine Nitrite (Negative) Urine Bilirubin (Negative) Urine Urobilinogen (<2.0) mg/dL Ur Leukocyte Esterase (Negative) Urine RBC (0-5) /hpf Urine WBC (0-5) /hpf Ur Squamous Epith Cells (0-4) /hpf Urine Mucus (None) /hpf Coronavirus (PCR) (Not Detectd) 06/15/21 06/15/21 06/16/21 Range/Units 21:41 22:07 00:30 WBC (3.8-10.6) k/uL RBC (4.30-5.90) m/uL Hgb (13.0-17.5) gm/dL Hct (39.0-53.0) % MCV (80.0-100.0) fL MCH (25.0-35.0) pg MCHC (31.0-37.0) g/dL RDW (11.5-15.5) % Plt Count (150-450) k/uL MPV Neutrophils % % Lymphocytes % % Monocytes % % Eosinophils % % Basophils % % Neutrophils # (1.3-7.7) k/uL Lymphocytes # (1.0-4.8) k/uL Monocytes # (0-1.0) k/uL Eosinophils # (0-0.7) k/uL Basophils # (0-0.2) k/uL Hypochromasia Poikilocytosis PT (9.0-12.0) sec INR (<1.2) APTT (22.0-30.0) sec Sodium (137-145) mmol/L Potassium (3.5-5.1) mmol/L Chloride (98-107) mmol/L Carbon Dioxide (22-30) mmol/L Anion Gap mmol/L BUN (9-20) mg/dL Creatinine (0.66-1.25) mg/dL Est GFR (CKD-EPI)AfAm (>60 ml/min/1.73 sqM) Est GFR (CKD-EPI)NonAf (>60 ml/min/1.73 sqM) Glucose (74-99) mg/dL Lactic Ac Sepsis Rflx Y Plasma Lactic Acid Gene (0.7-2.0) mmol/L Calcium (8.4-10.2) mg/dL Magnesium (1.6-2.3) mg/dL Total Bilirubin (0.2-1.3) mg/dL AST (17-59) U/L ALT (4-49) U/L Alkaline Phosphatase (38-126) U/L Troponin I (0.000-0.034) ng/mL NT-Pro-B Natriuret Pep pg/mL Total Protein (6.3-8.2) g/dL Albumin (3.5-5.0) g/dL Urine Color Yellow Urine Appearance Cloudy (Clear) Urine pH 5.5 (5.0-8.0) Ur Specific [place] 1.027 (1.001-1.035) Urine Protein 2+ H (Negative) Urine Glucose (UA) 3+ H (Negative) Urine Ketones 1+ H (Negative) Urine Blood Negative (Negative) Urine Nitrite Negative (Negative) Urine Bilirubin Negative (Negative) Urine Urobilinogen <2.0 (<2.0) mg/dL Ur Leukocyte Esterase Negative (Negative) Urine RBC 1 (0-5) /hpf Urine WBC 2 (0-5) /hpf Ur Squamous Epith Cells 1 (0-4) /hpf Urine Mucus Occasional H (None) /hpf Coronavirus (PCR) Not Detected (Not Detectd) 06/16/21 Range/Units 01:28 WBC (3.8-10.6) k/uL RBC (4.30-5.90) m/uL Hgb (13.0-17.5) gm/dL Hct (39.0-53.0) % MCV (80.0-100.0) fL MCH (25.0-35.0) pg MCHC (31.0-37.0) g/dL RDW (11.5-15.5) % Plt Count (150-450) k/uL MPV Neutrophils % % Lymphocytes % % Monocytes % % Eosinophils % % Basophils % % Neutrophils # (1.3-7.7) k/uL Lymphocytes # (1.0-4.8) k/uL Monocytes # (0-1.0) k/uL Eosinophils # (0-0.7) k/uL Basophils # (0-0.2) k/uL Hypochromasia Poikilocytosis PT (9.0-12.0) sec INR (<1.2) APTT (22.0-30.0) sec Sodium (137-145) mmol/L Potassium (3.5-5.1) mmol/L Chloride (98-107) mmol/L Carbon Dioxide (22-30) mmol/L Anion Gap mmol/L BUN (9-20) mg/dL Creatinine (0.66-1.25) mg/dL Est GFR (CKD-EPI)AfAm (>60 ml/min/1.73 sqM) Est GFR (CKD-EPI)NonAf (>60 ml/min/1.73 sqM) Glucose (74-99) mg/dL Lactic Ac Sepsis Rflx Plasma Lactic Acid Gene 1.9 (0.7-2.0) mmol/L Calcium (8.4-10.2) mg/dL Magnesium (1.6-2.3) mg/dL Total Bilirubin (0.2-1.3) mg/dL AST (17-59) U/L ALT (4-49) U/L Alkaline Phosphatase (38-126) U/L Troponin I (0.000-0.034) ng/mL NT-Pro-B Natriuret Pep pg/mL Total Protein (6.3-8.2) g/dL Albumin (3.5-5.0) g/dL Urine Color Urine Appearance (Clear) Urine pH (5.0-8.0) Ur Specific [place] (1.001-1.035) Urine Protein (Negative) Urine Glucose (UA) (Negative) Urine Ketones (Negative) Urine Blood (Negative) Urine Nitrite (Negative) Urine Bilirubin (Negative) Urine Urobilinogen (<2.0) mg/dL Ur Leukocyte Esterase (Negative) Urine RBC (0-5) /hpf Urine WBC (0-5) /hpf Ur Squamous Epith Cells (0-4) /hpf Urine Mucus (None) /hpf Coronavirus (PCR) (Not Detectd) Disposition Clinical Impression: Lactic acidosis, Leukocytosis, Bronchitis Disposition: [facility] Condition: Fair
[2021-06-15 21:52] LABS: Basophils # (A) 0.1 k/uL (0-0.2); Basophils % (A) 1 %; Eosinophils # (A) 0.1 k/uL (0-0.7); Eosinophils % (A) 1 %; HCT 40.8 % (39.0-53.0); HGB 13.6 gm/dL (13.0-17.5); Hypochromasia Slight; Lymphocytes # (A) 1.2 k/uL (1.0-4.8); Lymphocytes % (A) 10 %; MCH 31.6 pg (25.0-35.0); MCHC 33.4 g/dL (31.0-37.0); MCV 94.6 fL (80.0-100.0); Mean Platelet Volume 7.3; Monocytes # (A) 1.1 k/uL (0-1.0); Monocytes % (A) 8 %; Neutrophils # (A) 9.9 k/uL (1.3-7.7); Neutrophils % (A) 78 %; Platelet Count 274 k/uL (150-450); Poikilocytosis Slight; RBC 4.31 m/uL (4.30-5.90); RDW 14.5 % (11.5-15.5); WBC 12.7 k/uL (3.8-10.6)
[2021-06-15 22:03] LABS: Albumin 4.1 g/dL (3.5-5.0); Calcium 9.2 mg/dL (8.4-10.2); Magnesium 1.7 mg/dL (1.6-2.3); Total Bilirubin 0.4 mg/dL (0.2-1.3); Total Protein 6.8 g/dL (6.3-8.2)
[2021-06-15 22:08] LABS: Potassium 4.5 mmol/L (3.5-5.1)
[2021-06-15 22:15] LABS: INR 0.9 (<1.2); Partial Thromboplastin Time 22.3 sec (22.0-30.0); Prothrombin Time 9.8 sec (9.0-12.0)
--- NOTE | 2021-06-15 22:54 | CT ---
EXAMINATION TYPE: CT brain wo con DATE OF EXAM: 06/15/2021 COMPARISON: 10/13/2018 HISTORY: ams CT DLP: 1121.4 mGycm Automated exposure control for dose reduction was used. There is cerebral cortical atrophy. There is no mass effect nor midline shift. There is no sign of in tracranial hemorrhage. There is enlargement of the sylvian fissures. There is enlargement of the vent ricles. There is dense calcification in the cerebral falx. The skull base is intact. IMPRESSION: Cerebral atrophy. No acute intracranial abnormality. No significant change.
--- NOTE | 2021-06-15 22:57 | XR ---
EXAMINATION TYPE: XR chest 2V DATE OF EXAM: 06/15/2021 COMPARISON: 11/17/2018 HISTORY: Difficulty breathing TECHNIQUE: 2 views FINDINGS: There is some linear density at the lung bases. There is poor inspiration. There is mild el evation of the right diaphragm. There is no heart failure. There are no hilar masses. Thoracic aorta is intact. There is minor spurring in the thoracic spine. IMPRESSION: There is some atelectasis at the lung bases that is new compared to old exam. No heart fa ilure.
[2021-06-16] MEDS ORDERED: SODIUM CHLORIDE 0.9% 500 ML 500 ML IV STA ×2 (00:15→01:53)
[2021-06-16 01:10] LABS: Appearance,Urine Cloudy (Clear); Bilirubin,Urine Negative (Negative); Blood,Urine Negative (Negative); Color,Urine Yellow; Glucose,Urine (UA) 3+ (Negative); Ketones,Urine 1+ (Negative); Leukocyte Esterase,Urine Negative (Negative); Mucus,Urine Occasional /hpf; Nitrite,Urine Negative (Negative); PH, Urine 5.5 (5.0-8.0); Protein,Urine 2+ (Negative); RBC,Urine 1 /hpf (0-5); Specific Gravity,Urine 1.027 (1.001-1.035); Squamous Epithelial Cell,Urine 1 /hpf (0-4); Urobilinogen,Urine <2.0 mg/dL (<2.0); WBC,Urine 2 /hpf (0-5)
[2021-06-16] MEDS ORDERED: ALBUTEROL NEBULIZED 2.5 MG/3 ML INHALATION STA (01:50)
[2021-06-16] MEDS ORDERED: AZITHROMYCIN 500 MG TAB PO STA (01:50)
[2021-06-16] MEDS: ALBUTEROL NEBULIZED 2.5 MG/3 ML INHALATION SCH ×2 (07:17→12:42)
[2021-06-16] MEDS ORDERED: AZITHROMYCIN 500 MG TAB PO SCH (09:00)
[2021-06-16] MEDS ORDERED: predniSONE 20 MG TAB PO SCH (09:00)
[2021-06-16] MEDS ORDERED: HEPARIN SODIUM,PORCINE/PF 5,000 UNIT/0.5 ML SYRINGE SQ SCH (09:00)
--- NOTE | 2021-06-16 09:25 | XR ---
EXAMINATION TYPE: XR chest 2V DATE OF EXAM: 06/16/2021 COMPARISON: 06/15/2021 HISTORY: Shortness of breath TECHNIQUE: Frontal and lateral views of the chest are obtained. FINDINGS: Scattered senescent parenchymal changes noted. Hyperinflation compatible with COPD. Stable right lower lobe infiltrate and/or atelectasis. Heart size is stable. Mediastinal structures are stable and grossly unremarkable. No evidence for hilar prominence. Degenerative changes dorsal spine. IMPRESSION: 1. Stable right lower lobe infiltrate and/or atelectasis.
[2021-06-16] MEDS ORDERED: ARTIFICIAL TEARS-HYPROMELLOSE DROPS 15 ML BTL BOTH EYES PRN (10:39)
[2021-06-16] MEDS ORDERED: NON FORMULARY DRUG (Menthol [Biofreeze] 89 ML Gel..Ml.) TOPICAL PRN (10:39)
[2021-06-16] MEDS ORDERED: ACETAMINOPHEN TAB 500 MG TAB PO PRN (10:39)
[2021-06-16] MEDS ORDERED: MINERAL OIL-WHITE PETROLATUM 120 GM JAR TOPICAL PRN (10:39)
[2021-06-16] MEDS ORDERED: IMIPRAMINE 10 MG TAB PO SCH (11:00)
[2021-06-16] MEDS ORDERED: busPIRone HCl 5 MG TAB PO SCH (11:00)
[2021-06-16] MEDS ORDERED: METOPROLOL TARTRATE 25 MG TAB PO SCH (11:00)
[2021-06-16] MEDS ORDERED: PANTOPRAZOLE 40 MG TABLET PO SCH (11:15)
[2021-06-16] MEDS ORDERED: risperiDONE 0.5 MG TAB PO SCH (11:15)
[2021-06-16] MEDS ORDERED: MORPHINE SULFATE 2 MG/ML SYRINGE IVP PRN (12:09)
[2021-06-16] MEDS ORDERED: ONDANSETRON 4 MG/2 ML VIAL IVP PRN (12:17)
--- NOTE | 2021-06-16 12:19 | P.CNPUL ---
History of Present Illness Consult date: 06/16/21 Reason for consult: dyspnea History of present illness: 81-year-old male patient, quite debilitated with multiple medical problems and comorbidities and progressive dementia with significant impairment and cognitive functions according to the daughter. The patient came into the MRSA problem yesterday because of generalized weakness and increased respiratory distress. The patient stated that he did not feel good and not much information was obtained from the patient knowing that he was unable to volunteer any further history. He was quite lethargic and fatigued. He had a temperature of 11.6 and he was tachycardic with a heart rate of 114. His BP was 176/125. He was on 2 L of oxygen by nasal cannula and the chest x-ray showed some limited infiltration of the right lung base. The patient was started on broad-spectrum antibiotics and he was given Rocephin and Zithromax in the emergency department. This morning, I was asked to evaluate this patient as his condition has gotten significantly worse. At time of my arrival, the patient had significant chest congestion where there was gurgling noises and this was heard throughout the chest even without a stethoscope. The patient could be heard across the room as he had excessive chest congestion, unable to bring up any significant respiratory secretions, he was extremely tachypneic, hypoxic, placed on 100 nonrebreather facemask his heart rate was up to 150, sinus rhythm and the blood pressure was as high as 241/150. Repeat chest x-ray from this morning showed worsening right lower lobe consolidation consistent with evolving pneumonia. He was on no pressors. He was unable to communicate. He was very tachypneic using excessive muscle breathing. Obviously, the patient was in significant respiratory distress and I discussed immediately intubation with the daughter was at the bedside. The daughter made it clear to me that the patient's cognitive functions are getting worse in his performance status is been extremely poor and he had advanced directives indicating DNR/DNI CODE STATUS. Note that his initial lactic acid level was at 2.3. His COVID-19 testing was negative. Electrolytes were essentially within normal limits. Blood sugar was 303. Patient has history of alcoholism. The patient also has history of dementia. Other comorbid conditions include diabetes mellitus, hypertension, COPD, prostate cancer and he is in index smoker. Review of Systems ROS unobtainable: due to mental status Past Medical History Past Medical History: Cancer, Dementia, Diabetes Mellitus, GERD/Reflux, Hypertension, Memory Impairment, Pneumonia, Prostate Disorder Additional Past Medical History / Comment(s): Prostate cancer. 2015 bleeding ulcer. migraines, uses walker when up. multiple falls at home History of Any Multi-Drug Resistant Organisms: None Reported Past Surgical History: Cholecystectomy, Orthopedic Surgery, Prostate Surgery Additional Past Surgical History / Comment(s): knee left, right leg, back. prostate removed.lt elbow Past Anesthesia/Blood Transfusion Reactions: No Reported Reaction Past Psychological History: Depression Smoking Status: Current every day smoker Past Alcohol Use History: None Reported Past Drug Use History: None Reported - Past Family History Father Additional Family Medical History / Comment(s): ulcers Mother History Unknown: Yes Additional Family Medical History / Comment(s): migraines Brother(s) Family Medical History: Cancer Additional Family Medical History / Comment(s): Brain Medications and Allergies Home Medications Medication Instructions Recorded Confirmed Type Folic Acid 1 mg PO DAILY 05/15/16 06/16/21 History Imipramine [Tofranil] 10 mg PO TID 05/15/16 06/16/21 History Aspirin [Adult Low Dose Aspirin EC] 81 mg PO HS@199909/25/18 06/16/21 History Metoprolol Tartrate 12.5 mg PO BID 09/25/18 06/16/21 History Pantoprazole Sodium 40 mg PO DAILY 09/25/18 06/16/21 History risperiDONE 0.5 mg PO TID 11/21/18 06/16/21 History Acetaminophen Tab [Tylenol Tab] 500 mg PO Q6H PRN 06/16/21 06/16/21 History Ascorbic Acid [Vitamin C] 500 mg PO DAILY 06/16/21 06/16/21 History Benadryl Itch Cooling [place] 1 spray TOPICAL QID PRN 06/16/21 06/16/21 History Cholecalciferol (Vitamin D3) 125 mcg PO DAILY 06/16/21 06/16/21 History [Vitamin D3 (125 MCG = 5,000 IU)] Colloidal Oatmeal [Eucerin Eczema 1 applic TOPICAL QID PRN 06/16/21 06/16/21 History Relief] Cranberry Fruit Concentrate [Azo 250 mg PO DAILY 06/16/21 06/16/21 History Cranberry] Divalproex Sodium 250 mg PO HS 06/16/21 06/16/21 History Dry Eye Relief 1 drop BOTH EYES QID PRN 06/16/21 06/16/21 History Ibuprofen [Motrin] 400 mg PO BID 06/16/21 06/16/21 History Insulin Aspart [NovoLOG Flexpen] See Protocol SQ AC-TID 06/16/21 06/16/21 History Insulin Glargine,Hum.rec.anlog 32 unit SQ HS 06/16/21 06/16/21 History [Lantus Solostar] Ipratropium-Albuterol Nebulize 3 ml INHALATION RT-TID 06/16/21 06/16/21 History [Duoneb 0.5 mg-3 mg/3 ml Soln] Ketoconazole 2% Shampoo [Nizoral] 1 applic TOPICAL Q3D 06/16/21 06/16/21 History Melatonin 3 mg PO HS 06/16/21 06/16/21 History Menthol [Biofreeze] 1 applic TOPICAL QID PRN 06/16/21 06/16/21 History Zinc 50 mg PO DAILY 06/16/21 06/16/21 History busPIRone HCL [Buspar] 7.5 mg PO BID 06/16/21 06/16/21 History hydrOXYzine HCL [Atarax] 25 mg PO TID PRN 06/16/21 06/16/21 History metFORMIN HCL [metFORMIN HCL ER] 500 mg PO HS 06/16/21 06/16/21 History traZODone HCL [Desyrel] 100 mg PO HS 06/16/21 06/16/21 History Allergies Allergy/AdvReac Type Severity Reaction Status Date / Time Benzodiazepines AdvReac AMS Verified 06/16/21 09:17 lorazepam AdvReac Hallucinati Verified 06/16/21 09:17 ons zolpidem tartrate AdvReac Hallucinati Verified 06/16/21 09:17 [From Sarah] ons Physical Exam Vitals: Vital Signs Temp Pulse Resp BP Pulse Ox 06/16/21 07:27 133 H 22 06/16/21 07:18 134 H 22 06/16/21 06:15 99.6 F 110 H 24 155/98 95 06/16/21 03:25 99 06/16/21 03:24 133 H 22 06/16/21 03:15 122 H 25 H 06/16/21 02:14 98.9 F 116 H 20 145/99 96 06/16/21 01:00 114 H 24 121/95 95 06/16/21 00:00 112 H 20 155/96 95 06/15/21 23:00 108 H 20 147/96 95 06/15/21 22:00 115 H 24 150/107 95 06/15/21 21:09 24 06/15/21 21:02 101.6 F H 114 H 20 176/125 97 Intake and Output 06/15/21 06/16/21 06/16/21 22:59 06:59 14:59 Intake Total 110 Balance 110 Intake: Oral 110 Other: # Voids 1 Weight 90.718 kg The patient is in severe respiratory distress, using this as a muscle breathing and breathing in the mid 40s. He has noisy breathing and gurgling from his ch est that can be heard across the room. He is completely unresponsive on 100 nonrebreather facemask. He is tachycardic, tachypneic and hypotensive. Head exam was generally normal. There was no scleral icterus or corneal arcus. Mucous membranes were moist. Neck was supple and without jugular venous distension, thyromegaly, or carotid bruits. Carotids were easily palpable bilaterally. There was no adenopathy. Mucous membranes are essentially dried this point in time. Lungs sounds are diminished and the patient has crackles throughout the lung whyte and diffuse rhonchi heard throughout lung whyte and diffuse wheezing. Breathing is extremely noisy. Excessive respiratory secretions can be heard throughout the chest, unable to bring up his secretions and his cough is essentially unaffected. Heart is tachycardic, regular, positive S1-S2 and there is no significant murmurs appreciated Abdominal exam revealed normal bowel sounds. The abdomen was soft, non-tender, and without masses, organomegaly, or appreciable enlargement of the abdominal aorta. Extremities are cold and clammy no cyanosis or clubbing Neurologically the patient is unresponsive, withdraws only to deep painful stimulation. Pupils are equal and reactive to light. No focal neurological deficit. Results - Laboratory Findings CBC and BMP: 06/15/21 21:41 06/15/21 21:41 ABG WBC 12.7 k/uL (3.8-10.6) H 06/15/21 21:41 RBC 4.31 m/uL (4.30-5.90) 06/15/21 21:41 Hgb 13.6 gm/dL (13.0-17.5) 06/15/21 21:41 Hct 40.8 % (39.0-53.0) 06/15/21 21:41 MCV 94.6 fL (80.0-100.0) 06/15/21 21:41 MCH 31.6 pg (25.0-35.0) 06/15/21 21:41 MCHC 33.4 g/dL (31.0-37.0) 06/15/21 21:41 RDW 14.5 % (11.5-15.5) 06/15/21 21:41 Plt Count 274 k/uL (150-450) 06/15/21 21:41 MPV 7.3 06/15/21 21:41 Neutrophils % 78 % 06/15/21 21:41 Lymphocytes % 10 % 06/15/21 21:41 Monocytes % 8 % 06/15/21 21:41 Eosinophils % 1 % 06/15/21 21:41 Basophils % 1 % 06/15/21 21:41 Neutrophils # 9.9 k/uL (1.3-7.7) H 06/15/21 21:41 Lymphocytes # 1.2 k/uL (1.0-4.8) 06/15/21 21:41 Monocytes # 1.1 k/uL (0-1.0) H 06/15/21 21:41 Eosinophils # 0.1 k/uL (0-0.7) 06/15/21 21:41 Basophils # 0.1 k/uL (0-0.2) 06/15/21 21:41 Hypochromasia Slight 06/15/21 21:41 Poikilocytosis Slight 06/15/21 21:41 PT 9.8 sec (9.0-12.0) 06/15/21 21:41 INR 0.9 (<1.2) 06/15/21 21:41 APTT 22.3 sec (22.0-30.0) 06/15/21 21:41 Sodium 133 mmol/L (137-145) L 06/15/21 21:41 Potassium 4.5 mmol/L (3.5-5.1) 06/15/21 21:41 Chloride 99 mmol/L (98-107) 06/15/21 21:41 Carbon Dioxide 23 mmol/L (22-30) 06/15/21 21:41 Anion Gap 11 mmol/L 06/15/21 21:41 BUN 19 mg/dL (9-20) 06/15/21 21:41 Creatinine 1.15 mg/dL (0.66-1.25) 06/15/21 21:41 Est GFR (CKD-EPI)AfAm 69 (>60 ml/min/1.73 sqM) 06/15/21 21:41 Est GFR (CKD-EPI)NonAf 60 (>60 ml/min/1.73 sqM) 06/15/21 21:41 Glucose 303 mg/dL (74-99) H 06/15/21 21:41 Lactic Ac Sepsis Rflx Y 06/15/21 22:07 Plasma Lactic Acid Gene 1.9 mmol/L (0.7-2.0) 06/16/21 01:28 Calcium 9.2 mg/dL (8.4-10.2) 06/15/21 21:41 Magnesium 1.7 mg/dL (1.6-2.3) 06/15/21 21:41 Total Bilirubin 0.4 mg/dL (0.2-1.3) 06/15/21 21:41 AST 26 U/L (17-59) 06/15/21 21:41 ALT 19 U/L (4-49) 06/15/21 21:41 Alkaline Phosphatase 62 U/L (38-126) 06/15/21 21:41 Troponin I 0.016 ng/mL (0.000-0.034) 06/15/21 21:41 NT-Pro-B Natriuret Pep 417 pg/mL 06/15/21 21:41 Total Protein 6.8 g/dL (6.3-8.2) 06/15/21 21:41 Albumin 4.1 g/dL (3.5-5.0) 06/15/21 21:41 Urine Color Yellow 06/16/21 00:30 Urine Appearance Cloudy (Clear) 06/16/21 00:30 Urine pH 5.5 (5.0-8.0) 06/16/21 00:30 Ur Specific [place] 1.027 (1.001-1.035) 06/16/21 00:30 Urine Protein 2+ (Negative) H 06/16/21 00:30 Urine Glucose (UA) 3+ (Negative) H 06/16/21 00:30 Urine Ketones 1+ (Negative) H 06/16/21 00:30 Urine Blood Negative (Negative) 06/16/21 00:30 Urine Nitrite Negative (Negative) 06/16/21 00:30 Urine Bilirubin Negative (Negative) 06/16/21 00:30 Urine Urobilinogen <2.0 mg/dL (<2.0) 06/16/21 00:30 Ur Leukocyte Esterase Negative (Negative) 06/16/21 00:30 Urine RBC 1 /hpf (0-5) 06/16/21 00:30 Urine WBC 2 /hpf (0-5) 06/16/21 00:30 Ur Squamous Epith Cells 1 /hpf (0-4) 06/16/21 00:30 Urine Mucus Occasional /hpf (None) H 06/16/21 00:30 Coronavirus (PCR) Not Detected (Not Detectd) 06/15/21 21:41 PT/INR, D-dimer PT 9.8 sec (9.0-12.0) 06/15/21 21:41 INR 0.9 (<1.2) 06/15/21 21:41 Abnormal lab findings: Abnormal Labs 06/15/21 06/15/21 06/15/21 21:41 21:41 21:41 WBC 12.7 H Neutrophils # 9.9 H Monocytes # 1.1 H Sodium 133 L Glucose 303 H Plasma Lactic Acid Gene 2.3 H* Urine Protein Urine Glucose (UA) Urine Ketones Urine Mucus 06/16/21 00:30 WBC Neutrophils # Monocytes # Sodium Glucose Plasma Lactic Acid Gene Urine Protein 2+ H Urine Glucose (UA) 3+ H Urine Ketones 1+ H Urine Mucus Occasional H - Diagnostic Findings Chest x-ray: image reviewed Assessment and Plan Plan: 1 Acute hypoxic respiratory failure. The patient has extensive right lung pneumonia with significant respiratory secretions and mucous plugging and respiratory distress in addition to use of accessory muscles of breathing, tachypnea, tachycardia and acute hypertensive reaction. Repeat chest from this morning showed significant progression of right lower lobe pneumonia with an extensive consolidation involving the right lung base. His cough is extremely ineffective. She is in acute respiratory failure. DNR/DNI CODE STATUS was confirmed by the family. Based on his overall condition, recommended end-of-life care/comfort care measures. Daughter was agreeable. We'll introduce morphine for comfort reasons. 2 acute febrile illness secondary to above 3 COPD 4 dementia with significant impairment of the cognitive functions 5 history of alcoholism 6 history of chronic smoking. Is more than [id number] smoking history 7 history of prostate cancer 8 diabetes mellitus 9 peptic ulcer disease 10 history of performance status is been extremely poor and the patient has had multiple falls and uses a walker for mobility. He lives in an [facility] home. Plan DNR/DNI CODE STATUS was confirmed with the daughter and the rest of the family members. The patient is in acute respiratory failure. The patient will need end-of-life care. Recommend morphine for comfort reasons. He is quite tachycardic and tachypneic and in significant respiratory distress. Morphine can be started as pushes 2 mg every 30 minutes and the patient can be also started on drip for end-of-life care. Daughters at the bedside. She is agreeable. No intubation. DNR/DNI CODE STATUS.
[2021-06-16] MEDS ORDERED: MORPHINE SULFATE (100 MG/2 ML) 100 MG in SODIUM CHLORIDE 0.9% 100 ML IV SCH (12:30)
[2021-06-16] MEDS ORDERED: SCOPOLAMINE 1.5MG/72HR PATCH TRANSDERM SCH (13:00)
[2021-06-16] MEDS: IPRATROPIUM-ALBUTEROL 3 ML NEB INHALATION SCH ×2 (13:07→15:27)
[2021-06-16 15:05] VITALS: BP 192/111; RESP 18; TEMP 98
[2021-06-16 15:41] VITALS: PULSE 104
[2021-06-16] MEDS ORDERED: PIPERACILLIN-TAZOBACTAM 3.375 GM in SODIUM CHLORIDE 0.9% 100 ML IVPB SCH (16:00)
--- NOTE | 2021-06-16 16:17 | P.HPIM ---
History of Present Illness H&P Date: 06/16/21 Chief Complaint: Short of breath History of presenting complaint: This is a 81-year-old patient who is being followed by visiting physicians. History is provided by daughter DALILA Villanueva the bedside. Patient is a resident of [facility]. Does use a walker. Long-standing smoker. Chronic stable medical conditions include dementia, diabetes, GERD, hypertension, prost ate cancer. Patient had a baseline able to recognize family. Able to feed himself. Is incontinent admin visit diaper. Daughter was called because patient became short of breath and started gurgling. Short of breath. Brought into the ER. Slight respiratory distress. Patient himself is not able to give any history. On Ventimask. Review of systems cannot be done as patient rather lethargic Past medical history to include: Dementia, diabetes, GERD, hypertension, prostate cancer, 2015 bleeding ulcer, uses a walker Social history: Resident of [facility]. Started smoking age of 12 1 pack a day. Whiskey 1 pint a day. Was a heavy drinker in the past. Family history: Cancer Physical examination: VITAL SIGNS: 98, 1:30, 18, 192/111, 93% on Ventimask GENERAL: BMI 29.5, reclining in bed, the Ventimask, short of breath at rest. EYES: Pupils equal. Conjunctiva normal. HEENT: External appearance of nose and ears normal, oral cavity dry. NECK: JVD unable to assess; masses not palpable. HEART: First and second heart sounds are normal; no edema. LUNGS: Respiratory rate increased, ecstasy muscles are working, not able to speak in full sentences, decreased breath sounds expiratory respiratory crackles. ABDOMEN: Soft, nontender, liver spleen not palpable, no masses palpable. PSYCH: Lethargic, unable to assessl. NEUROLOGICAL: [Cranial nerves grossly intact; no facial asymmetry, does move limbs LYMPHATICS: No lymph nodes palpable in the axilla and neck INVESTIGATIONS, reviewed in the clinical context: White count 12.7 hemoglobin 13.6 platelets 274 potassium 4.5 creatinine 1.15 glucose 303 Lactic acid 2.3 ProBNP 417 Coronavirus [PCR]: Not detected Chest x-ray film personally reviewed by me-infiltrate EKG tracing personally reviewed by me-sinus tachycardia. 136 Assessment and plan: -Severe pneumonia, suspect gram-negative organism along with possible aspiration IV Zosyn -Acute metabolic encephalopathy delirium from underlying infection -Acute hypoxic respiratory failure from pneumonia, COPD Ventimask -Severe cognitive impairment from late-onset Alzheimer's dementia -Diabetes mellitus type 2, chronic insulin Follow Accu-Chek -GERD -Essential hypertension -Chronic gait dysfunction with medical debility At her baseline uses a walker -Acute severe COPD exacerbation in a current smoker DuoNeb Patient is put on a Ventimask, nebulized bronchodilators. Increased secretions patient's scopolamine patch. Prognosis guarded. Pulmonary consulted. Advanced care planning: This was discussed with the patient's daughter at the bedside Kay and her . Prognosis is poor. She was the patient to be comfortable. Hospice was consulted for informational visit. If no improvement patient will progress with the same. Questions were answered. Additional 20 minutes was spent for ACP Past Medical History Past Medical History: Cancer, Dementia, Diabetes Mellitus, GERD/Reflux, Hypertension, Memory Impairment, Pneumonia, Prostate Disorder Additional Past Medical History / Comment(s): Prostate cancer. 2015 bleeding ulcer. migraines, uses walker when up. multiple falls at home History of Any Multi-Drug Resistant Organisms: None Reported Past Surgical History: Cholecystectomy, Orthopedic Surgery, Prostate Surgery Additional Past Surgical History / Comment(s): knee left, right leg, back. pros carranza removed.lt elbow Past Anesthesia/Blood Transfusion Reactions: No Reported Reaction Past Psychological History: Depression Smoking Status: Current every day smoker Past Alcohol Use History: None Reported Past Drug Use History: None Reported - Past Family History Father Additional Family Medical History / Comment(s): ulcers Mother History Unknown: Yes Additional Family Medical History / Comment(s): migraines Brother(s) Family Medical History: Cancer Additional Family Medical History / Comment(s): Brain Medications and Allergies Home Medications Medication Instructions Recorded Confirmed Type Folic Acid 1 mg PO DAILY 05/15/16 06/16/21 History Imipramine [Tofranil] 10 mg PO TID 05/15/16 06/16/21 History Aspirin [Adult Low Dose Aspirin EC] 81 mg PO HS@199909/25/18 06/16/21 History Metoprolol Tartrate 12.5 mg PO BID 09/25/18 06/16/21 History Pantoprazole Sodium 40 mg PO DAILY 09/25/18 06/16/21 History risperiDONE 0.5 mg PO TID 11/21/18 06/16/21 History Acetaminophen Tab [Tylenol Tab] 500 mg PO Q6H PRN 06/16/21 06/16/21 History Ascorbic Acid [Vitamin C] 500 mg PO DAILY 06/16/21 06/16/21 History Benadryl Itch Cooling [place] 1 spray TOPICAL QID PRN 06/16/21 06/16/21 History Cholecalciferol (Vitamin D3) 125 mcg PO DAILY 06/16/21 06/16/21 History [Vitamin D3 (125 MCG = 5,000 IU)] Colloidal Oatmeal [Eucerin Eczema 1 applic TOPICAL QID PRN 06/16/21 06/16/21 History Relief] Cranberry Fruit Concentrate [Azo 250 mg PO DAILY 06/16/21 06/16/21 History Cranberry] Divalproex Sodium 250 mg PO HS 06/16/21 06/16/21 History Dry Eye Relief 1 drop BOTH EYES QID PRN 06/16/21 06/16/21 History Ibuprofen [Motrin] 400 mg PO BID 06/16/21 06/16/21 History Insulin Aspart [NovoLOG Flexpen] See Protocol SQ AC-TID 06/16/21 06/16/21 History Insulin Glargine,Hum.rec.anlog 32 unit SQ 06/16/21 06/16/21 History [Lantus Solostar] Ipratropium-Albuterol Nebulize 3 ml INHALATION RT-TID 06/16/21 06/16/21 History [Duoneb 0.5 mg-3 mg/3 ml Soln] Ketoconazole 2% Shampoo [Nizoral] 1 applic TOPICAL Q3D 06/16/21 06/16/21 History Melatonin 3 mg PO HS 06/16/21 06/16/21 History Menthol [Biofreeze] 1 applic TOPICAL QID PRN 06/16/21 06/16/21 History Zinc 50 mg PO DAILY 06/16/21 06/16/21 History busPIRone HCL [Buspar] 7.5 mg PO BID 06/16/21 06/16/21 History hydrOXYzine HCL [Atarax] 25 mg PO TID PRN 06/16/21 06/16/21 History metFORMIN HCL [metFORMIN HCL ER] 500 mg PO HS 06/16/21 06/16/21 History traZODone HCL [Desyrel] 100 mg PO HS 06/16/21 06/16/21 History Allergies Allergy/AdvReac Type Severity Reaction Status Date / Time Benzodiazepines AdvReac AMS Verified 06/16/21 09:17 lorazepam AdvReac Hallucinati Verified 06/16/21 09:17 ons zolpidem tartrate AdvReac Hallucinati Verified 06/16/21 09:17 [From Sarah] ons Physical Exam Vitals: Vital Signs Temp Pulse Resp BP Pulse Ox 06/16/21 07:27 133 H 22 06/16/21 07:18 134 H 22 06/16/21 06:15 99.6 F 110 H 24 155/98 95 06/16/21 03:25 99 06/16/21 03:24 133 H 22 06/16/21 03:15 122 H 25 H 06/16/21 02:14 98.9 F 116 H 20 145/99 96 06/16/21 01:00 114 H 24 121/95 95 06/16/21 00:00 112 H 20 155/96 95 06/15/21 23:00 108 H 20 147/96 95 06/15/21 22:00 115 H 24 150/107 95 06/15/21 21:09 24 06/15/21 21:02 101.6 F H 114 H 20 176/125 97 Intake and Output 06/15/21 06/16/21 06/16/21 22:59 06:59 14:59 Other: # Voids 1 Weight 90.718 kg Results CBC & Chem 7: 06/15/21 21:41 06/15/21 21:41 Labs: Abnormal Lab Results - Last 24 Hours (Table) 06/15/21 06/15/21 06/15/21 Range/Units 21:41 21:41 21:41 WBC 12.7 H (3.8-10.6) k/uL Neutrophils # 9.9 H (1.3-7.7) k/uL Monocytes # 1.1 H (0-1.0) k/uL Sodium 133 L (137-145) mmol/L Glucose 303 H (74-99) mg/dL Plasma Lactic Acid Gene 2.3 H* (0.7-2.0) mmol/L Urine Protein (Negative) Urine Glucose (UA) (Negative) Urine Ketones (Negative) Urine Mucus (None) /hpf 06/16/21 Range/Units 00:30 WBC (3.8-10.6) k/uL Neutrophils # (1.3-7.7) k/uL Monocytes # (0-1.0) k/uL Sodium (137-145) mmol/L Glucose (74-99) mg/dL Plasma Lactic Acid Gene (0.7-2.0) mmol/L Urine Protein 2+ H (Negative) Urine Glucose (UA) 3+ H (Negative) Urine Ketones 1+ H (Negative) Urine Mucus Occasional H (None) /hpf
[2021-06-16] MEDS ORDERED: ASPIRIN 81 MG PO SCH (20:00)
[2021-06-16] MEDS ORDERED: DIVALPROEX 250 MG TABLET.DR PO SCH (21:00)
[2021-06-16] MEDS ORDERED: MELATONIN 3 MG TABLET PO SCH (21:00)
[2021-06-16] MEDS ORDERED: traZODone HCL 100 MG TAB PO SCH (21:00)
[2021-06-16] MEDS ORDERED: INSULIN DETEMIR (LEVEMIR) 100 UNIT/ML SYR SQ SCH (21:00)
--- NOTE | 2021-06-16 23:02 | P.DS ---
Providers Date of admission: 06/16/21 13:11 Expected date of discharge: 06/16/21 Attending physician: Mansoor Freeman Consults: 06/16/21 08:54 Consult Physician Urgent Consulting Provider: Len Young Consult Reason/Comments: COPD Do you want consulting provider notified?: Yes Primary care physician: [facility] Course: Chief Complaint: Short of breath History of presenting complaint: This is a 81-year-old patient who is being followed by visiting physicians. History is provided by daughter DALILA Villanueva the bedside. Patient is a res ident of [facility]. Does use a walker. Long-standing smoker. Chronic stable medical conditions include dementia, diabetes, GERD, hypertension, prostate cancer. Patient had a baseline able to recognize family. Able to feed himself. Is incontinent admin visit diaper. Daughter was called because patient became short of breath and started gurgling. Short of breath. Brought into the ER. Slight respiratory distress. Patient himself is not able to give any history. On Ventimask. Admitted with pneumonia, COPD exacerbation, acute delirium, acute hypoxic respiratory failure. Given oxygen support, IV Zosyn IV fluids. Patient continued to do poorly. Seen by pulmonary. agreed to proceed with inpatient hospice care. Hospice consulted. GIP initiated Consultation: Dr. Dalal from pulmonary Past medical history to include: Dementia, diabetes, GERD, hypertension, prostate cancer, 2015 bleeding ulcer, uses a walker Social history: Resident of [facility]. Started smoking age of 12 1 pack a day. Whiskey 1 pint a day. Was a heavy drinker in the past. Family history: Cancer Physical examination: VITAL SIGNS: 98, 1:30, 18, 192/111, 93% on Ventimask GENERAL: BMI 29.5, reclining in bed, the Ventimask, short of breath at rest. EYES: Pupils equal. Conjunctiva normal. HEENT: External appearance of nose and ears normal, oral cavity dry. NECK: JVD unable to assess; masses not palpable. HEART: First and second heart sounds are normal; no edema. LUNGS: Respiratory rate increased, ecstasy muscles are working, not able to speak in full sentences, decreased breath sounds expiratory respiratory crackles. ABDOMEN: Soft, nontender, liver spleen not palpable, no masses palpable. PSYCH: Lethargic, unable to assessl. INVESTIGATIONS, reviewed in the clinical context: White count 12.7 hemoglobin 13.6 platelets 274 potassium 4.5 creatinine 1.15 glucose 303 Lactic acid 2.3 ProBNP 417 Coronavirus [PCR]: Not detected Chest x-ray film personally reviewed by me-infiltrate EKG tracing personally reviewed by me-sinus tachycardia. 136 Assessment and plan: -Severe pneumonia, suspect gram-negative organism along with possible aspiration IV Zosyn -Acute metabolic encephalopathy delirium from underlying infection -Acute hypoxic respiratory failure from pneumonia, COPD Ventimask -Severe cognitive impairment from late-onset Alzheimer's dementia -Diabetes mellitus type 2, chronic insulin Follow Accu-Chek -GERD -Essential hypertension -Chronic gait dysfunction with medical debility At her baseline uses a walker -Acute severe COPD exacerbation in a current smoker DuoNeb Patient is put on a Ventimask, nebulized bronchodilators. Increased secretions patient's scopolamine patch. Prognosis guarded. Pulmonary consulted. Advanced care planning: This was discussed with the patient's daughter at the bedside Kay and her . Prognosis is poor. She was the patient to be comfortable. Hospice was consulted for informational visit. If no improvement patient will progress with the same. Questions were answered. Additional 20 minutes was spent for ACP Disposition: GIP/inpatient hospice Plan - Discharge Summary New Discharge Prescriptions: No Action Imipramine [Tofranil] 10 mg PO TID Folic Acid 1 mg PO DAILY Aspirin [Adult Low Dose Aspirin EC] 81 mg PO HS@2000 Pantoprazole Sodium 40 mg PO DAILY Metoprolol Tartrate 12.5 mg PO BID risperiDONE 0.5 mg PO TID metFORMIN HCL [metFORMIN HCL ER] 500 mg PO HS hydrOXYzine HCL [Atarax] 25 mg PO TID PRN PRN Reason: Itching Menthol [Biofreeze] 1 applic TOPICAL QID PRN PRN Reason: Pain Melatonin 3 mg PO HS Ipratropium-Albuterol Nebulize [Duoneb 0.5 mg-3 mg/3 ml Soln] 3 ml INHALATION RT-TID Insulin Glargine,Hum.rec.anlog [Lantus Solostar] 32 unit SQ HS Cranberry Fruit Concentrate [Azo Cranberry] 250 mg PO DAILY Benadryl Itch Cooling [place] 1 spray TOPICAL QID PRN PRN Reason: Itching traZODone HCL [Desyrel] 100 mg PO HS busPIRone HCL [Buspar] 7.5 mg PO BID Zinc 50 mg PO DAILY Ketoconazole 2% Shampoo [Nizoral] 1 applic TOPICAL Q3D Ibuprofen [Motrin] 400 mg PO BID Dry Eye Relief 1 drop BOTH EYES QID PRN PRN Reason: Dry Eye(S) Divalproex Sodium 250 mg PO HS Colloidal Oatmeal [Eucerin Eczema Relief] 1 applic TOPICAL QID PRN PRN Reason: Dry Skin Cholecalciferol (Vitamin D3) [Vitamin D3 (125 MCG = 5,000 IU)] 125 mcg PO DAILY Ascorbic Acid [Vitamin C] 500 mg PO DAILY Acetaminophen Tab [Tylenol Tab] 500 mg PO Q6H PRN PRN Reason: Pain Or Fever > 100.5 Insulin Aspart [NovoLOG Flexpen] See Protocol SQ AC-TID Discharge Medication List Folic Acid 1 mg PO DAILY 05/15/16 [History] Imipramine [Tofranil] 10 mg PO TID 05/15/16 [History] Aspirin [Adult Low Dose Aspirin EC] 81 mg PO HS@199909/25/18 [History] Metoprolol Tartrate 12.5 mg PO BID 09/25/18 [History] Pantoprazole Sodium 40 mg PO DAILY 09/25/18 [History] risperiDONE 0.5 mg PO TID 11/21/18 [History] Acetaminophen Tab [Tylenol Tab] 500 mg PO Q6H PRN 06/16/21 [History] Ascorbic Acid [Vitamin C] 500 mg PO DAILY 06/16/21 [History] Benadryl Itch Cooling [place] 1 spray TOPICAL QID PRN 06/16/21 [History] Cholecalciferol (Vitamin D3) [Vitamin D3 (125 MCG = 5,000 IU)] 125 mcg PO DAILY 06/16/21 [History] Colloidal Oatmeal [Eucerin Eczema Relief] 1 applic TOPICAL QID PRN 06/16/21 [History] Cranberry Fruit Concentrate [Azo Cranberry] 250 mg PO DAILY 06/16/21 [History] Divalproex Sodium 250 mg PO HS 06/16/21 [History] Dry Eye Relief 1 drop BOTH EYES QID PRN 06/16/21 [History] Ibuprofen [Motrin] 400 mg PO BID 06/16/21 [History] Insulin Aspart [NovoLOG Flexpen] See Protocol SQ AC-TID 06/16/21 [History] Insulin Glargine,Hum.rec.anlog [Lantus Solostar] 32 unit SQ HS 06/16/21 [History] Ipratropium-Albuterol Nebulize [Duoneb 0.5 mg-3 mg/3 ml Soln] 3 ml INHALATION RT-TID 06/16/21 [History] Ketoconazole 2% Shampoo [Nizoral] 1 applic TOPICAL Q3D 06/16/21 [History] Melatonin 3 mg PO HS 06/16/21 [History] Menthol [Biofreeze] 1 applic TOPICAL QID PRN 06/16/21 [History] Zinc 50 mg PO DAILY 06/16/21 [History] busPIRone HCL [Buspar] 7.5 mg PO BID 06/16/21 [History] hydrOXYzine HCL [Atarax] 25 mg PO TID PRN 06/16/21 [History] metFORMIN HCL [metFORMIN HCL ER] 500 mg PO HS 06/16/21 [History] traZODone HCL [Desyrel] 100 mg PO HS 06/16/21 [History] Follow up Appointment(s)/Referral(s): Ector Flood MD [Primary Care Provider] - 1-2 days Discharge Disposition: DISCH TO HOSPICE [facility]
[2021-06-17] MEDS ORDERED: ENOXAPARIN 40 MG/0.4 ML SYRINGE SQ SCH (09:00)
[2021-06-17] MEDS ORDERED: CRANBERRY FRUIT 250 MG PO SCH (09:00)
[2021-06-17] MEDS ORDERED: FOLIC ACID 1 MG TAB PO SCH (09:00)
[2021-06-17] MEDS ORDERED: ASCORBIC ACID 500 MG TAB PO SCH (09:00)
== END 2021-06-16 16:44 | disposition hospice, inpatient (51) | DRG 193 ==
LOC: EC 21:01 → 4SSUR 06-16 03:00 → 3SCARD 06-16 11:25 → 4SSUR 06-16 12:32 → OBSVTOIN 06-16 13:11
PROVIDERS: ADMIT Hospitalist; ATTEND Hospitalist
DX: J18.9 Pneumonia, unspecified organism (principal); G93.41 Metabolic encephalopathy; J96.01 Acute respiratory failure with hypoxia; E87.2 Acidosis; F05 Delirium due to known physiological condition; J44.0 Chronic obstructive pulmonary disease with (acute) lower respiratory infection; J44.1 Chronic obstructive pulmonary disease with (acute) exacerbation; E11.9 Type 2 diabetes mellitus without complications; F02.80 Dementia in other diseases classified elsewhere, unspecified severity, without behavioral disturbance, psychotic disturbance, mood disturbance, and anxiety; F17.200 Nicotine dependence, unspecified, uncomplicated; F32.9 Major depressive disorder, single episode, unspecified; G30.1 Alzheimer's disease with late onset; I10 Essential (primary) hypertension; K21.9 Gastro-esophageal reflux disease without esophagitis; Z20.822 Contact with and (suspected) exposure to COVID-19; Z66 Do not resuscitate; Z79.4 Long term (current) use of insulin; Z79.82 Long term (current) use of aspirin; Z79.899 Other long term (current) drug therapy; Z85.46 Personal history of malignant neoplasm of prostate
CPT/HCPCS: 36415; 70450; 71046; 80053; 81001; 83605; 83735; 83880; 84484; 85025; 85610; 85730; 87040; 87635; 93005; 94640; 96365; 99285

== ENCOUNTER 2021-06-16 15:23 | Inpatient (IN) | payer MEDICAID ==
[2021-06-16] MEDS ORDERED: MORPHINE SULFATE 2 MG/ML SYRINGE IV PRN (15:26)
[2021-06-16] MEDS ORDERED: ACETAMINOPHEN SUPPOSITORY 650 MG SUPP RECTAL PRN (15:26)
[2021-06-16] MEDS ORDERED: ONDANSETRON 4 MG/2 ML VIAL IVP PRN (15:26)
[2021-06-16] MEDS: GLYCOPYRROLATE 0.2 MG/ML 2 ML VIAL IVP PRN (16:22)
[2021-06-16] MEDS: ATROPINE OPHTH SOLN 1% 5ML BTL SUBLINGUAL PRN (16:22)
[2021-06-16] MEDS: MORPHINE SULFATE (100 MG/2 ML) 100 MG in SODIUM CHLORIDE 0.9% 100 ML IV SCH ×3 (17:29→17:48)
[2021-06-17] MEDS: MORPHINE SULFATE (100 MG/2 ML) 100 MG in SODIUM CHLORIDE 0.9% 100 ML IV SCH ×2 (05:12→10:13)
[2021-06-17] MEDS: ATROPINE OPHTH SOLN 1% 5ML BTL SUBLINGUAL PRN ×2 (05:13→15:27)
[2021-06-17 12:19] VITALS: RESP 12
[2021-06-17] MEDS: GLYCOPYRROLATE 0.2 MG/ML 2 ML VIAL IVP PRN (15:17)
[2021-06-18] MEDS: MORPHINE SULFATE (100 MG/2 ML) 100 MG in SODIUM CHLORIDE 0.9% 100 ML IV SCH (03:05)
--- NOTE | 2021-06-18 20:57 | P.DS ---
Providers Date of admission: 06/16/21 17:13 Expected date of discharge: 06/18/21 Attending physician: Mansoor Freeman Primary care physician: Ector Flood [facility] Course: Admitted to [facility]/inpatient hospice. Placed up comfort care measures for respiratory distress. Vital oxygen including morphine. Family present. Patient Cause of : COPD Plan - Discharge Summary New Discharge Prescriptions: No Action Imipramine [Tofranil] 10 mg PO TID Folic Acid 1 mg PO DAILY Aspirin [Adult Low Dose Aspirin EC] 81 mg PO HS@2000 Pantoprazole Sodium 40 mg PO DAILY Metoprolol Tartrate 12.5 mg PO BID risperiDONE 0.5 mg PO TID metFORMIN HCL [metFORMIN HCL ER] 500 mg PO HS hydrOXYzine HCL [Atarax] 25 mg PO TID PRN PRN Reason: Itching Menthol [Biofreeze] 1 applic TOPICAL QID PRN PRN Reason: Pain Melatonin 3 mg PO HS Ipratropium-Albuterol Nebulize [Duoneb 0.5 mg-3 mg/3 ml Soln] 3 ml INHALATION RT-TID Insulin Glargine,Hum.rec.anlog [Lantus Solostar] 32 unit SQ HS Cranberry Fruit Concentrate [Azo Cranberry] 250 mg PO DAILY Benadryl Itch Cooling [place] 1 spray TOPICAL QID PRN PRN Reason: Itching traZODone HCL [Desyrel] 100 mg PO HS busPIRone HCL [Buspar] 7.5 mg PO BID Zinc 50 mg PO DAILY Ketoconazole 2% Shampoo [Nizoral] 1 applic TOPICAL Q3D Ibuprofen [Motrin] 400 mg PO BID Dry Eye Relief 1 drop BOTH EYES QID PRN PRN Reason: Dry Eye(S) Divalproex Sodium 250 mg PO HS Colloidal Oatmeal [Eucerin Eczema Relief] 1 applic TOPICAL QID PRN PRN Reason: Dry Skin Cholecalciferol (Vitamin D3) [Vitamin D3 (125 MCG = 5,000 IU)] 125 mcg PO DAILY Ascorbic Acid [Vitamin C] 500 mg PO DAILY Acetaminophen Tab [Tylenol Tab] 500 mg PO Q6H PRN PRN Reason: Pain Or Fever > 100.5 Insulin Aspart [NovoLOG Flexpen] See Protocol SQ AC-TID Discharge Medication List Folic Acid 1 mg PO DAILY 05/15/16 [History] Imipramine [Tofranil] 10 mg PO TID 05/15/16 [History] Aspirin [Adult Low Dose Aspirin EC] 81 mg PO HS@199909/25/18 [History] Metoprolol Tartrate 12.5 mg PO BID 09/25/18 [History] Pantoprazole Sodium 40 mg PO DAILY 09/25/18 [History] risperiDONE 0.5 mg PO TID 11/21/18 [History] Acetaminophen Tab [Tylenol Tab] 500 mg PO Q6H PRN 06/16/21 [History] Ascorbic Acid [Vitamin C] 500 mg PO DAILY 06/16/21 [History] Benadryl Itch Cooling [place] 1 spray TOPICAL QID PRN 06/16/21 [History] Cholecalciferol (Vitamin D3) [Vitamin D3 (125 MCG = 5,000 IU)] 125 mcg PO DAILY 06/16/21 [History] Colloidal Oatmeal [Eucerin Eczema Relief] 1 applic TOPICAL QID PRN 06/16/21 [History] Cranberry Fruit Concentrate [Azo Cranberry] 250 mg PO DAILY 06/16/21 [History] Divalproex Sodium 250 mg PO HS 06/16/21 [History] Dry Eye Relief 1 drop BOTH EYES QID PRN 06/16/21 [History] Ibuprofen [Motrin] 400 mg PO BID 06/16/21 [History] Insulin Aspart [NovoLOG Flexpen] See Protocol SQ AC-TID 06/16/21 [History] Insulin Glargine,Hum.rec.anlog [Lantus Solostar] 32 unit SQ HS 06/16/21 [History] Ipratropium-Albuterol Nebulize [Duoneb 0.5 mg-3 mg/3 ml Soln] 3 ml INHALATION RT-TID 06/16/21 [History] Ketoconazole 2% Shampoo [Nizoral] 1 applic TOPICAL Q3D 06/16/21 [History] Melatonin 3 mg PO HS 06/16/21 [History] Menthol [Biofreeze] 1 applic TOPICAL QID PRN 06/16/21 [History] Zinc 50 mg PO DAILY 06/16/21 [History] busPIRone HCL [Buspar] 7.5 mg PO BID 06/16/21 [History] hydrOXYzine HCL [Atarax] 25 mg PO TID PRN 06/16/21 [History] metFORMIN HCL [metFORMIN HCL ER] 500 mg PO HS 06/16/21 [History] traZODone HCL [Desyrel] 100 mg PO HS 06/16/21 [History] Discharge Disposition: - Preliminary Cause of Preliminary Cause of : COPD
[2021-06-19] MEDS ORDERED: SCOPOLAMINE 1.5MG/72HR PATCH TRANSDERM SCH (13:00)
== END 2021-06-18 11:39 | disposition expired | DRG 951 ==
LOC: UNDOADMIN 15:41 → 4SSUR 15:41 → 5NMEDONC 16:49
PROVIDERS: ADMIT Hospitalist; ATTEND Hospitalist
DX: Z51.5 Encounter for palliative care (principal); J96.01 Acute respiratory failure with hypoxia; J69.0 Pneumonitis due to inhalation of food and vomit; G93.41 Metabolic encephalopathy; J15.6 Pneumonia due to other Gram-negative bacteria; J44.0 Chronic obstructive pulmonary disease with (acute) lower respiratory infection; Z66 Do not resuscitate; G30.1 Alzheimer's disease with late onset; F02.80 Dementia in other diseases classified elsewhere, unspecified severity, without behavioral disturbance, psychotic disturbance, mood disturbance, and anxiety; K21.9 Gastro-esophageal reflux disease without esophagitis; I10 Essential (primary) hypertension; R32 Unspecified urinary incontinence; R26.9 Unspecified abnormalities of gait and mobility; R29.6 Repeated falls; Z91.81 History of falling; Z85.46 Personal history of malignant neoplasm of prostate; Z87.01 Personal history of pneumonia (recurrent); Z87.11 Personal history of peptic ulcer disease; Z86.69 Personal history of other diseases of the nervous system and sense organs; Z90.79 Acquired absence of other genital organ(s); Z90.49 Acquired absence of other specified parts of digestive tract; Z87.39 Personal history of other diseases of the musculoskeletal system and connective tissue; Z86.59 Personal history of other mental and behavioral disorders; Z98.890 Other specified postprocedural states; Z83.79 Family history of other diseases of the digestive system; Z82.0 Family history of epilepsy and other diseases of the nervous system; Z80.8 Family history of malignant neoplasm of other organs or systems